=== PATIENT | male | born 1965 | race American Indian/Alaskan Native ===

== ENCOUNTER 2016-09-25 21:30 | Inpatient (IN) | payer MEDICARE ==
[2016-09-25] MEDS ORDERED: APRESOLINE IV ONE (21:44)
[2016-09-25] MEDS ORDERED: AMIDATE IV ONE ×2 (22:00→23:39)
[2016-09-25] MEDS ORDERED: QUELICIN ONE (22:00)
--- NOTE | 2016-09-25 22:17 | Emergency Department Report ---
HPI - General Time Seen by Provider: 09/25/16 21:42 - HPI HPI: This is a 51-year-old Afro-[place] male who presents to the emergency department via EMS from home with complaint of neck swelling 2 days postop from thyroidectomy. The [facility] He went home and try to smoke a cigarette and tried to use cocaine when all of a sudden his neck started swelling and he felt like he is having trouble swallowing and that his throat is closing. Patient has a history of hypertension and end-stage renal disease on Tuesday, Tuesday and Tuesday. The surgery was done by a Dr. Salazar. He denies any chest pain, fever, nausea, vomiting, back pain. He has not taken anything and was not given anything for symptoms prior to presentation. ED Review of Systems ROS: Stated complaint: BETI/POST SURGERY Other details as noted in HPI Comment: All other systems reviewed and negative Constitutional: denies: chills, fever Eyes: denies: eye pain, eye discharge, vision change ENT: throat pain. denies: ear pain Respiratory: shortness of breath. denies: cough Cardiovascular: edema. denies: chest pain, palpitations Gastrointestinal: denies: abdominal pain, nausea, diarrhea Genitourinary: denies: urgency, dysuria Musculoskeletal: denies: back pain, joint swelling, arthralgia Skin: denies: rash, lesions Neurological: denies: headache, weakness, paresthesias Physical Exam - Physical Exam Physical Exam: GENERAL: The patient is well-developed well-nourished. Patient appears to be very uncomfortable but does not appear to be in any acute distress. HEENT: Normocephalic. Atraumatic. Extraocular motions are intact. Patient has moist mucous membranes. Pupils equal reactive to light bilaterally. Patient has a Mallampati of 4. No drooling or trismus. No signs of Glenn angina. NECK: Supple. There is swelling to the anterior neck. There does not appear to be active expansion. No current stridor. There is no signs of bleeding or purulent discharge to the anterior neck incision from his recent parathyroid surgery. CHEST/LUNGS: Clear to auscultation. There is no respiratory distress noted. HEART/CARDIOVASCULAR: Regular. There is no tachycardia. There is no gallop rub or murmur. ABDOMEN: Abdomen is soft, nontender. Patient has normal bowel sounds. There is no abdominal distention. SKIN: There is nonpitting swelling to the anterior neck and soft tissue under the jaw. NEURO: The patient is awake, alert, and oriented. The patient is cooperative. The patient has no focal neurologic deficits. The patient has normal speech. MUSCULOSKELETAL: There is no tenderness or deformity. There is no limitation range of motion. There is no evidence of acute injury. ED Course - Consultations Consultation #1: I spoke with the surgeon who did the patient's surgery, Dr. Salazar, who says that he did a parathyroidectomy and not a thyroidectomy. He does not feel comfortable with the patient being transferred to [facility] since the patient is currently intubated and has concern that the hematoma could largen. I spoke with Dr. Ferrari Gen. surgery here at [facility], who has agreed to come in and see the patient in the emergency department 09/25/16 23:45 - Intubation Time Out Performed: Yes Sedative: Etomidate Mg Given: 20 Paralytic: Succinylcholine Mg Given: 100 Laryngoscope: fiberoptic video scope Size: 4 ET Tube Size: 7.5 Tube Secured Depth (cm): 25 Tube Secured Location: lips Tube Placement Confirmation: visualized tube passing t, equal breath sounds bilat, confirmation by capnometr Patient Tolerated Procedure: well Intubation Complications: none ED Medical Decision Making - Lab Data Result diagrams: 09/26/16 03:30 09/26/16 04:17 - Radiology Data Radiology results: report reviewed, image reviewed interpreted by me: Chest x-ray did not show any acute process. Heart is normal shape and size. No effusions. No pneumothorax. No signs of pneumonia seen. Post intubation chest x-ray shows that the ET tube is an appropriate position. Still no pneumothorax or obvious sign of pneumonia. CT of the neck without contrast shows a large hematoma suspected the lower neck anterior took thyroid gland measuring 5.7 x 10 cm in greatest axial dimensions. There may be hematoma formation and inferior aspects of the sternocleidomastoid muscles. Little airway narrowing is seen in the lower neck. - Medical Decision Making 51-year-old male presents to the emergency department after being discharged from the Medical status post parathyroidectomy. The patient made the decision to go home and try and smoke a cigarette as well as use cocaine. He presents with swelling to the anterior neck. At first the patient does not have any stridor signs of respiratory distress. However during his ED course the patient starts to have increased swelling and started to have some stridor sounds and the decision was made at this point to intubate the patient. Anesthesia was at bedside but we were able to intubate the patient using the glydescope without any complications. CT of the neck shows a moderate size hematoma to the anterior neck. I spoke with the patient's surgeon at [facility] he would not accept transfer. Dr. Ferrari graciously agreed to come in and take care of this patient and took him to the OR and admitted the patient to his service. - Differential Diagnosis Glenn angina, hematoma, thyroid goiter Critical Care Time: Yes Critical care time in (mins) excluding proc time.: 35 Critical care attestation.: If time is entered above; I have spent that time in minutes in the direct care of this critically ill patient, excluding procedure time. Critical care time was spent on this patient during his initial evaluation, multiple re-evaluations , discussion and consultation with anesthesia, discussion with the patient's previous surgeon, discussion with our general surgeon, post intubation vent care , ordering evaluation of labs, ordering evaluation of imaging and disposition planning. This does not include the procedure for intubation. Critical Care Time: 35 mins ED Disposition Clinical Impression: Neck swelling, Cocaine abuse, ESRD on hemodialysis Respiratory failure Qualifiers: Chronicity: acute Respiratory failure complication: unspecified whether with hypoxia or hypercapnia Qualified Code(s): J96.00 - Acute respiratory failure, unspecified whether with hypoxia or hypercapnia Post-operative complication Qualifiers: Surgical complication system/body Area: [id number] Encounter type: initial encounter Postoperative shock type: unspecified shock type Disposition: OP ADMITTED IP TO THIS HOSP Is pt being admited?: Yes Condition: Serious Time of Disposition: 06:23
[2016-09-25 22:41] LABS: Hematocrit 29.4 % (35.5-45.6); Hemoglobin 9.5 gm/dl (11.8-15.2); Mean Corpuscular HGB Conc 32 % (32-34); Mean Corpuscular Hemoglobin 30 pg (28-32); Mean Corpuscular Volume 94 fl (84-94); Platelet Count 170 K/mm3 (140-440); Red Blood Count 3.15 M/mm3 (3.65-5.03); Red Cell Distribution Width 15.3 % (13.2-15.2); White Blood Count 4.7 K/mm3 (4.5-11.0)
[2016-09-25 22:51] LABS: Albumin 3.9 g/dL (3.9-5); Albumin/Globulin Ratio 1.1 %; Alkaline Phosphatase 134 units/L (35-129); Anion Gap 22 mmol/L; BUN/Creatinine Ratio 4.33; Bilirubin,Total 0.4 mg/dL (0.1-1.2); Blood Urea Nitrogen 36 mg/dL (9-20); Calcium 8.9 mg/dL (8.4-10.2); Carbon Dioxide 27 mmol/L (22-30); Chloride 90.4 mmol/L (98-107); Glucose 94 mg/dL (75-100); Potassium 4.9 mmol/L (3.6-5.0); Sodium 134 mmol/L (137-145); Total Protein 7.4 g/dL (6.3-8.2)
[2016-09-25 22:55] LABS: Alanine Aminotransferase < 5 units/L (7-56)
[2016-09-25] MEDS ORDERED: DIPRIVAN 10 MG/ML 1,000 MG/100 ML BOTTLE IV ONE (22:59)
[2016-09-25] MEDS ORDERED: NACL 0.9% 1000 ML 1,000 ML ONE (23:05)
[2016-09-25] MEDS: DIPRIVAN 10 MG/ML 1,000 MG/100 ML BOTTLE IV SCH (23:15)
--- NOTE | 2016-09-25 23:28 | Cat Scan Report ---
FINAL REPORT PROCEDURE: CT NECK WO CON TECHNIQUE: Computerized axial tomography of the soft tissue neck was performed following the IV injection of iodinated nonionic contrast. HISTORY: Post op neck swelling COMPARISON: No prior studies are available for comparison. FINDINGS: Study is limited due the lack of IV contrast. Mild soft tissue emphysema is seen along the right sternocleidomastoid muscle. Sternocleidomastoid muscles appear enlarged in their distal course with possible edema or hematoma. In the soft tissues anterior to the thyroid gland there is a large hematoma suspected measuring 5.7 x 10.2 cm. Mild lymphadenopathy is suspected in the superior mediastinum. Mild airway narrowing is seen in the cervical trachea. More superiorly in the neck at the level of the hyoid bone, there is mild diffuse edema in the parapharyngeal and retropharyngeal soft tissues. There appears to be soft tissue edema within the mucosal soft tissues at the level of the hypopharynx with more moderate airway narrowing. Submandibular and parotid glands appear symmetric. Atherosclerotic calcifications are seen in the carotid bifurcations. There is abnormal densities seen in the sphenoid sinus that communicates with the sella. It is uncertain if this is from a sinus mass or sellar mass or is postoperative change. This area measures approximately 4.0 x 1.9 cm in greatest sagittal dimensions. IMPRESSION: Large hematoma is suspected in the lower neck anterior to the thyroid gland measuring 5.7 x 10.2 in greatest axial dimensions. There may be hematoma formation in the inferior aspects of the sternocleidomastoid muscles, also. Little airway narrowing is seen in the lower neck. There is suggestion of mucosal edema in the hypopharynx appearance surrounding parapharyngeal and retropharyngeal edema. Moderate airway narrowing is seen in the supraglottic region. Abnormal density in the sella and sphenoid sinuses may be postsurgical packing but a sellar mass or sinus mass is not excluded. Critical results were discussed with Dr. Carmona at 11:22 p.m. on September 25, 2016.
[2016-09-25] MEDS ORDERED: QUELICIN IV ONE (23:39)
[2016-09-25] MEDS ORDERED: ARTIFICIAL TEARS OPHTH OINT OU PRN (23:48)
[2016-09-25] MEDS ORDERED: VASELINE LIP THERAPY TP PRN (23:48)
--- NOTE | 2016-09-26 00:13 | Anesthesia Day of Surgery ---
Anesthesia Day of Surgery - Day of Surgery Patient Examined: Yes Patient H&P Reviewed: Yes Patient is NPO: Yes
--- NOTE | 2016-09-26 00:13 | Anesthesia Consultation ---
Anesthesia Consult and Med Hx Date of service: 09/26/16 - Pulmonary Exam CTA: No (coarse breath sounds and wheezing bilaterally) - Cardiac Exam Cardiac Exam: RRR - Pre-Operative Health Status ASA Pre-Surgery Classification: ASA4 Proposed Anesthetic Plan: General - Pulmonary Hx Smoking: Yes Hx Respiratory Symptoms: Yes (intubated in ER) - Cardiovascular System Hx Hypertension: Yes - Endocrine Hx End Stage Renal Disease: Yes (dialysis MWF) - Other Systems Hx Substance Use: Yes (cocaine) - Additional Comments Anesthesia Medical History Comments: Underwent parathyroidectomy 2 days ago at [facility]. Presents in ER with neck distension suspecting hematoma and airway edema on CT scan. Patient intubated in ER.
[2016-09-26 00:14] LABS: Anisocytosis 1+; Basophils % (Manual) 0 % (0.0-1.8); Blastocytes % (Manual) 0 %; Diff Status Complete; Hypochromasia 1+; Platelet Estimate Consistent w Auto
[2016-09-26] MEDS ORDERED: ZEMURON IV ONE (00:15)
[2016-09-26] MEDS ORDERED: VERSED ONE (00:15)
[2016-09-26] MEDS ORDERED: MARCAINE 0.5% 0 ML INFILTRATI ONE (00:40)
[2016-09-26] MEDS ORDERED: ANCEF ONE ×3 (01:24→01:42)
[2016-09-26] MEDS ORDERED: SUBLIMAZE ONE (01:30)
[2016-09-26] MEDS ORDERED: DECADRON ONE (01:42)
--- NOTE | 2016-09-26 01:59 | Post Anesthesia Evaluation ---
- Post Anesthesia Evaluation Patient Participated: No (sedated on vent) Airway Patent: Yes Stable Respiratory Function: No (respiratory failure) Nausea/Vomiting: No Temp > 96.8F: Yes Pain Manageable: Yes Adequeate Hydration: Yes Anesthesia Complications: No Block Receding Appropriately: Not Applicable Patient on Ventilator: Yes
[2016-09-26] MEDS: D5W/0.45% NACL/KCL 20 MEQ 20 MEQ/1,000 ML BAG IV SCH (05:20)
[2016-09-26 05:24] LABS: Hematocrit 28.9 % (35.5-45.6); Hemoglobin 9.2 gm/dl (11.8-15.2); Mean Corpuscular HGB Conc 32 % (32-34); Mean Corpuscular Hemoglobin 30 pg (28-32); Mean Corpuscular Volume 95 fl (84-94); Platelet Count 180 K/mm3 (140-440); Red Blood Count 3.05 M/mm3 (3.65-5.03); Red Cell Distribution Width 15.7 % (13.2-15.2)
[2016-09-26 05:34] LABS: INR 1.09 (0.87-1.13)
[2016-09-26 05:46] LABS: BUN/Creatinine Ratio 4.31; Calcium 8.6 mg/dL (8.4-10.2)
[2016-09-26 05:47] LABS: Chloride 91.2 mmol/L (98-107); Potassium 4.7 mmol/L (3.6-5.0)
[2016-09-26 05:49] LABS: Basophils % (Auto) 0.4 % (0.0-1.8)
[2016-09-26 05:50] LABS: ISTAT Base Excess 1; ISTAT HCO3 26.2; ISTAT PCO2 43.5 (35-45); ISTAT PH 7.388 (7.35-7.45); ISTAT PO2 78 (80-105); ISTAT SO2 95; ISTAT TCO2 28
[2016-09-26] MEDS: DIPRIVAN 10 MG/ML 1,000 MG/100 ML BOTTLE IV SCH ×4 (06:12→18:18)
[2016-09-26 06:37] LABS: Anisocytosis 1+; Blastocytes % (Manual) 0 %; Diff Status Complete; Hypochromasia 1+; Platelet Estimate Consistent w Auto
[2016-09-26] MEDS ORDERED: VASELINE LIP THERAPY TP PRN (06:40)
--- NOTE | 2016-09-26 08:02 | Progress Note ---
Subjective Narrative: seen this AM still entubated some booz of blood via the adi bandage changed , will have Dr boswell for HDialysis .NPO Objective Vital Signs - 12hr 09/26/16 09/26/16 09/26/16 02:14 02:19 02:24 Temperature 97.1 F L Pulse Rate 74 75 78 Respiratory 16 16 22 Rate Blood Pressure 92/51 101/54 118/66 O2 Sat by Pulse 100 100 100 Oximetry 09/26/16 09/26/16 09/26/16 02:29 02:34 02:45 Temperature 98.0 F Pulse Rate 79 80 80 Respiratory 23 24 24 Rate Blood Pressure 130/71 147/80 148/80 O2 Sat by Pulse 100 100 100 Oximetry 09/26/16 09/26/16 09/26/16 02:55 03:01 03:11 Temperature Pulse Rate 84 Respiratory 16 Rate Blood Pressure 176/96 O2 Sat by Pulse 100 96 96 Oximetry 09/26/16 09/26/16 09/26/16 03:15 03:21 03:31 Temperature 97.8 F Pulse Rate 82 79 Respiratory 18 21 19 Rate Blood Pressure 160/93 160/93 O2 Sat by Pulse 98 96 95 Oximetry 09/26/16 09/26/16 09/26/16 03:41 03:51 03:52 Temperature 97.9 F Pulse Rate 78 77 Respiratory 18 17 Rate Blood Pressure 160/93 160/93 O2 Sat by Pulse 93 92 Oximetry 09/26/16 09/26/16 09/26/16 04:00 04:11 04:21 Temperature Pulse Rate 77 76 76 Respiratory 18 18 17 Rate Blood Pressure 107/64 107/64 107/64 O2 Sat by Pulse 92 93 93 Oximetry 09/26/16 09/26/16 09/26/16 04:31 04:41 04:51 Temperature Pulse Rate 76 75 74 Respiratory 17 17 19 Rate Blood Pressure 160/93 160/93 160/93 O2 Sat by Pulse 93 94 94 Oximetry 09/26/16 09/26/16 09/26/16 05:01 05:10 05:21 Temperature Pulse Rate 75 75 72 Respiratory 11 L 22 21 Rate Blood Pressure 126/74 126/74 126/74 O2 Sat by Pulse 95 96 100 Oximetry 09/26/16 09/26/16 09/26/16 05:24 05:31 05:41 Temperature Pulse Rate 73 72 71 Respiratory 19 18 Rate Blood Pressure 126/74 126/74 126/74 O2 Sat by Pulse 93 98 98 Oximetry - Labs 09/26/16 03:30 09/26/16 04:17 Diabetes panel 09/26/16 Range/Units 04:17 Sodium 134 L (137-145) mmol/L Potassium 4.7 (3.6-5.0) mmol/L Chloride 91.2 L (98-107) mmol/L Carbon Dioxide 24 (22-30) mmol/L BUN 38 H (9-20) mg/dL Creatinine 8.8 H (0.8-1.5) mg/dL Glucose 84 (75-100) mg/dL Calcium 8.6 (8.4-10.2) mg/dL Calcium panel 09/26/16 Range/Units 04:17 Calcium 8.6 (8.4-10.2) mg/dL Pituitary panel 09/26/16 Range/Units 04:17 Sodium 134 L (137-145) mmol/L Potassium 4.7 (3.6-5.0) mmol/L Chloride 91.2 L (98-107) mmol/L Carbon Dioxide 24 (22-30) mmol/L BUN 38 H (9-20) mg/dL Creatinine 8.8 H (0.8-1.5) mg/dL Glucose 84 (75-100) mg/dL Calcium 8.6 (8.4-10.2) mg/dL Adrenal panel 09/26/16 Range/Units 04:17 Sodium 134 L (137-145) mmol/L Potassium 4.7 (3.6-5.0) mmol/L Chloride 91.2 L (98-107) mmol/L Carbon Dioxide 24 (22-30) mmol/L BUN 38 H (9-20) mg/dL Creatinine 8.8 H (0.8-1.5) mg/dL Glucose 84 (75-100) mg/dL Calcium 8.6 (8.4-10.2) mg/dL
[2016-09-26] MEDS: fentaNYL DRIP Premix 2,000 MCG/100 ML BAG IV SCH ×2 (08:14→14:28)
[2016-09-26 09:19] LABS: Hematocrit 25.7 % (35.5-45.6); Hemoglobin 8.3 gm/dl (11.8-15.2); Mean Corpuscular HGB Conc 32 % (32-34); Mean Corpuscular Hemoglobin 31 pg (28-32); Mean Corpuscular Volume 95 fl (84-94); Platelet Count 155 K/mm3 (140-440); Red Blood Count 2.72 M/mm3 (3.65-5.03); Red Cell Distribution Width 15.3 % (13.2-15.2); White Blood Count 4.3 K/mm3 (4.5-11.0)
--- NOTE | 2016-09-26 10:52 | XRay Report ---
Single view chest: History: Shortness of breath. Findings: Cardiomegaly. Trachea is midline. Infiltrates right upper lobe. Suspicion of infiltrates left perihilar area. Left CP angle obscured by the large heart. Right CP angle normal. Impression: Right upper lobe pneumonia. Suspicion of infiltrates left perihilar area.
--- NOTE | 2016-09-26 10:53 | XRay Report ---
Single view chest: Compared to 09/25/16 obtained at 9:48 PM. History: Postintubation. Findings: Cardiomegaly. Trachea is midline. Tip of endotracheal tube in normal position. Infiltrates right upper lobe and left perihilar area. Normal CP angles. Impression: Faint infiltrates right upper lobe and left perihilar area.
--- NOTE | 2016-09-26 11:05 | Consultation ---
History of Present Illness Consult date: 09/26/16 Medications and Allergies Allergies Allergy/AdvReac Type Severity Reaction Status Date / Time Unable to Assess Allergy Unverified 09/25/16 23:38 Active Meds: Active Medications Famotidine (Pepcid) 20 mg IV BID HALEY Hydrophilic Ointment (Vaseline Lip Therapy) 1 applic TP Q2HR PRN PRN Reason: Dry Lips Propofol (Diprivan 10 Mg/Ml) 1,000 mg in 100 mls @ 2.994 mls/hr IV TITR HALEY; 5 MCG/KG/MIN PRN Reason: Protocol Last Admin: 09/26/16 10:24 Dose: 40 mcg/kg/min, 23.95 mls/hr Potassium Chloride/Dextrose/Sod Cl (D5w/0.45% Nacl/Kcl 20 Meq) 20 meq in 1,000 mls @ 50 mls/hr IV DIRECT HALEY Last Admin: 09/26/16 05:20 Dose: 50 mls/hr Fentanyl Citrate (Fentanyl Drip Premix) 2,000 mcg in 100 mls @ 4.99 mls/hr IV TITR HALEY; 1 MCG/KG/HR PRN Reason: Protocol Last Admin: 09/26/16 08:14 Dose: 2 mcg/kg/hr, 9.979 mls/hr Multi-Ingred Cream/Lotion/Oil/Oint (Artificial Tears Ophth Oint) 1 applic OU Q4HR PRN PRN Reason: Dry Eye(s) Physical Examination Vital Signs Pulse Resp BP Pulse Ox 91 H 18 206/97 100 09/25/16 22:31 09/25/16 22:31 09/25/16 22:31 09/25/16 22:31 Results 09/26/16 08:37 09/26/16 04:17 Coagulation 09/26/16 Range/Units 03:30 PT 14.0 (12.2-14.9) Sec. INR 1.09 (0.87-1.13) CBC 09/26/16 09/26/16 Range/Units 03:30 08:37 WBC 7.0 4.3 L (4.5-11.0) K/mm3 RBC 3.05 L 2.72 L (3.65-5.03) M/mm3 Hgb 9.2 L 8.3 L (11.8-15.2) gm/dl Hct 28.9 L 25.7 L (35.5-45.6) % Plt Count 180 155 (140-440) K/mm3 Lymph # 0.2 L (1.2-5.4) K/mm3 Camas # 0.2 (0.0-0.8) K/mm3 Eos # 0.5 H (0.0-0.4) K/mm3 Baso # 0.0 (0.0-0.1) K/mm3 Comprehensive Metabolic Panel 09/26/16 Range/Units 04:17 Sodium 134 L (137-145) mmol/L Potassium 4.7 (3.6-5.0) mmol/L Chloride 91.2 L (98-107) mmol/L Carbon Dioxide 24 (22-30) mmol/L BUN 38 H (9-20) mg/dL Creatinine 8.8 H (0.8-1.5) mg/dL Glucose 84 (75-100) mg/dL Calcium 8.6 (8.4-10.2) mg/dL Assessment and Plan Detailed cardiology consult dictated.
--- NOTE | 2016-09-26 11:46 | Consultation ---
History of Present Illness - Reason for Consult Consult date: 09/26/16 end stage renal disease - History of Present Illness History obtained from records as patient is intubated/sedated. Mr. Riggins is a 51yo gentleman with ESRD on HD MWF and secondary hyperparathyroidism who is s/p recent parathyroidectomy at [facility] (Dr. Salazar) on 09/24 who presented to the ED with neck swelling and difficulty swallowing. CT neck w/o contrast was notable for large hematoma. Patient was intubated for airway protection. He was taken to the OR for evacuation of hematoma Past History Past Medical History: anemia (secondary to ESRD), ESRD, hypertension, other ( secondary hyperparathyroidism) Past Surgical History: Other (parathyroidectomy, AVF creation) Social history: smoking Family history: no significant family history Medications and Allergies Allergies Allergy/AdvReac Type Severity Reaction Status Date / Time Unable to Assess Allergy Unverified 09/25/16 23:38 Active Meds: Active Medications Famotidine (Pepcid) 20 mg IV BID HALEY Hydrophilic Ointment (Vaseline Lip Therapy) 1 applic TP Q2HR PRN PRN Reason: Dry Lips Propofol (Diprivan 10 Mg/Ml) 1,000 mg in 100 mls @ 2.994 mls/hr IV TITR HALEY; 5 MCG/KG/MIN PRN Reason: Protocol Last Admin: 09/26/16 10:24 Dose: 40 mcg/kg/min, 23.95 mls/hr Potassium Chloride/Dextrose/Sod Cl (D5w/0.45% Nacl/Kcl 20 Meq) 20 meq in 1,000 mls @ 50 mls/hr IV DIRECT HALEY Last Admin: 09/26/16 05:20 Dose: 50 mls/hr Fentanyl Citrate (Fentanyl Drip Premix) 2,000 mcg in 100 mls @ 4.99 mls/hr IV TITR HALEY; 1 MCG/KG/HR PRN Reason: Protocol Last Admin: 09/26/16 08:14 Dose: 2 mcg/kg/hr, 9.979 mls/hr Multi-Ingred Cream/Lotion/Oil/Oint (Artificial Tears Ophth Oint) 1 applic OU Q4HR PRN PRN Reason: Dry Eye(s) Review of Systems ROS unobtainable: due to endotracheal tube Exam - Vital Signs Vital signs: Vital Signs Pulse Resp BP Pulse Ox 91 H 18 206/97 100 04/01/17 22:31 09/25/16 22:31 09/25/16 22:31 09/25/16 22:31 - General Appearance General appearance: sedated on ventilator, intubated EENT: ATNC Neck: Present: Other (pressure dressing applied to anterior neck) Respiratory: Other (coarse anterior breath sounds) Heart: regular, S1S2 Gastrointestinal: Present: normal. Absent: distended Integumentary: no rash Neurologic: other (sedated) Results - Lab Results 09/26/16 08:37 09/26/16 04:17 Most recent lab results Calcium 8.6 mg/dL (8.4-10.2) 09/26/16 04:17 Assessment and Plan Impression: * End stage renal disease on HD MWF * Hematoma s/p parathyroidectomy * Acute respiratory failure secondary to hematoma * Hypertension Plan: * No acute need for hemodialysis today * Surgery following - he is s/p hematoma evacuation * Ca level stable - will follow * Continue anti HTN medications * Transfusion of pRBC prn * Epogen protocol
--- NOTE | 2016-09-26 14:27 | Consultation ---
History of Present Illness Consult date: 09/26/16 Requesting physician: AUGUSTIN GUILLERMO Reason for consult: other (post-operative respiratory failure.) History of present illness: 51 y/o male with evacuation of neck hemotoma admitted to ICU with continued bleeding and respiratory failure. Intubated for airway protection and surgery. had hematoma evacuated last night. Past History Past Medical History: anemia (secondary to ESRD), ESRD, hypertension, other ( secondary hyperparathyroidism) Past Surgical History: Other (parathyroidectomy, AVF creation) Social history: smoking Family history: no significant family history Medications and Allergies Allergies Allergy/AdvReac Type Severity Reaction Status Date / Time Unable to Assess Allergy Unverified 09/25/16 23:38 Active Meds: Active Medications Famotidine (Pepcid) 20 mg IV BID HALEY Hydrophilic Ointment (Vaseline Lip Therapy) 1 applic TP Q2HR PRN PRN Reason: Dry Lips Propofol (Diprivan 10 Mg/Ml) 1,000 mg in 100 mls @ 2.994 mls/hr IV TITR HALEY; 5 MCG/KG/MIN PRN Reason: Protocol Last Admin: 09/26/16 14:16 Dose: 40 mcg/kg/min, 23.95 mls/hr Potassium Chloride/Dextrose/Sod Cl (D5w/0.45% Nacl/Kcl 20 Meq) 20 meq in 1,000 mls @ 50 mls/hr IV DIRECT HALEY Last Admin: 09/26/16 05:20 Dose: 50 mls/hr Fentanyl Citrate (Fentanyl Drip Premix) 2,000 mcg in 100 mls @ 4.99 mls/hr IV TITR HALEY; 1 MCG/KG/HR PRN Reason: Protocol Last Admin: 09/26/16 08:14 Dose: 2 mcg/kg/hr, 9.979 mls/hr Multi-Ingred Cream/Lotion/Oil/Oint (Artificial Tears Ophth Oint) 1 applic OU Q4HR PRN PRN Reason: Dry Eye(s) Review of Systems ROS unobtainable: due to endotracheal tube, due to mental status Physical Examination Vital signs: Vital Signs Pulse Resp BP Pulse Ox 91 H 18 206/97 100 09/25/16 22:31 09/25/16 22:31 09/25/16 22:31 09/25/16 22:31 General appearance: no acute distress, comatose (sedated on propofol and fent) Eyes: non-icteric ENT: other Neck: other (pressure dressing in place) Ascultation: Bilateral: diminished breath sounds Percussion: Bilateral: not dull Cardiovascular: regular rate and rhythm Gastrointestinal: normoactive bowel sounds Integumentary: normal Extremities: no cyanosis, no edema, pink and warm Musculoskeletal: no deformities unable to assess Results - Laboratory Findings CBC and BMP: 09/26/16 08:37 09/26/16 04:17 ABG POC ABG pH 7.388 (7.35-7.45) 09/26/16 05:16 POC ABG pCO2 43.5 (35-45) 09/26/16 05:16 POC ABG pO2 78 (80-105) L 09/26/16 05:16 POC ABG HCO3 26.2 09/26/16 05:16 POC ABG Total CO2 28 09/26/16 05:16 POC ABG O2 Sat 95 09/26/16 05:16 PT/INR, D-dimer PT 14.0 Sec. (12.2-14.9) 09/26/16 03:30 INR 1.09 (0.87-1.13) 09/26/16 03:30 Abnormal lab findings: Abnormal Labs 09/26/16 09/26/16 09/26/16 03:30 04: 05:16 WBC RBC 3.05 L Hgb 9.2 L Hct 28.9 L MCV 95 H RDW 15.7 H Lymph % (Auto) 2.5 L Lymph # 0.2 L Eos # 0.5 H Seg Neutrophils % 86.9 H Lymphocytes % (Manual) 6.0 L Monocytes % (Manual) 8.0 H Eosinophils % (Manual) 19.0 H Basophils % (Manual) 2.0 H Lymphocytes # (Manual) 0.4 L Eosinophils # (Manual) 1.3 H POC ABG pO2 78 L Sodium 134 L Chloride 91.2 L BUN 38 H Creatinine 8.8 H POC Glucose 09/26/16 09/26/16 08:37 10:51 WBC 4.3 L RBC 2.72 L Hgb 8.3 L Hct 25.7 L MCV 95 H RDW 15.3 H Lymph % (Auto) Lymph # Eos # Seg Neutrophils % Lymphocytes % (Manual) Monocytes % (Manual) Eosinophils % (Manual) Basophils % (Manual) Lymphocytes # (Manual) Eosinophils # (Manual) POC ABG pO2 Sodium Chloride BUN Creatinine POC Glucose 132 H - Diagnostic Findings Chest x-ray: image reviewed (cardiomegaly with mild pulmonary vascular congestion) Assessment and Plan 51 y/o male admitted with neck hematoma after parathyroid surgery at outside hospital, requiring mechanical ventilation for airway protection and adequate sedation. 1. Patient with FiO2 at 60, sat only 94%. CXR appears to be consistent with volume overload. Also has ESRD, will dialyze Tuesday based on renal recs 2. Continue current level of sedation to keep neck still to help with clotting 3. Follow up surgery recs 4. Will continue to follow CCT 31 minutes
[2016-09-26 21:58] LABS: Hematocrit 24.5 % (35.5-45.6); Hemoglobin 7.9 gm/dl (11.8-15.2)
[2016-09-26] MEDS ORDERED: PEPCID IV SCH (22:00)
--- NOTE | 2016-09-27 00:05 | Consultation ---
CARDIOLOGY CONSULTATION REFERRING PHYSICIAN: Yusef Ferrari MD Dear Dr. Ferrari: Thanks for this consult. The patient is intubated and is on sedation. Most of the history is obtained from Dr. Ferrari and medical records. HISTORY OF PRESENT ILLNESS: A 51-year-old obese (BMI of 31.6) a pleasant -[place] gentleman with a history of hypertension, CKD, on chronic hemodialysis, hyperparathyroidism, underwent parathyroidectomy at [facility] a few days ago. Two days after the surgery, he started having swelling of the neck, which gradually started increasing and he had difficulty in swallowing and breathing. Workup revealed evidence of hematoma in the neck. He was intubated and placed on assisted mechanical ventilation. His hemoglobin initially was 9.2 and then went down to 8.3, hematocrit went down from 28.9 to 25.7. His potassium is normal. No history of diabetes mellitus. His lipid status is unknown. At this time, he is intubated on 50% FIO2 and PEEP of 5. His blood pressure is stable. Apparently 2 days after the surgery, the patient was trying to smoke a cigarette and also, he was trying to use cocaine. PAST MEDICAL HISTORY: History of multiple medical problems as described above. Apparently, the patient had trouble swallowing. No history of chest pain, nausea, or vomiting. No further past history is known at this time. SOCIAL HISTORY: Not known. FAMILY HISTORY: Not known. ALLERGIES: Unable to assess at this time. MEDICATIONS: Pepcid 20 mg IV b.i.d., fentanyl infusion, propofol infusion, IV D5 half normal saline with potassium (20 mEq in 1 Liter) infusion. REVIEW OF SYSTEMS: CARDIOVASCULAR: As described in the history. PULMONARY: As described in the history. THYROID: As described in the history. METABOLISM AND ENDOCRINOLOGY: History of parathyroidectomy. HEMATOPOIETIC SYSTEM: Acute blood loss anemia. RENAL: History of CKD, on chronic hemodialysis. PHYSICAL EXAMINATION: GENERAL: A 51-year-old obese (BMI of 31.6) -[place] gentleman, intubated on assisted mechanical ventilation (FiO2 of 50, PEEP of 5), not responding to painful stimuli medication, he is on propofol and fentanyl infusion. VITAL SIGNS: His pulse is 70 per minute and regular, blood pressure 111/69 mmHg, respirations 18 per minute. NEUROLOGIC: As described above. HEENT: Marked neck swelling plus plus dressing in situ. HEART: Point of maximum pulse could not be felt satisfactorily, no palpable thrills. Auscultation of the heart reveals S1, S2. He had regular no murmur or rub is appreciated. EXTREMITIES: Peripheral pulses felt. No edema. LUNGS: Bilateral [id number] wheezing, cannot be examined well posteriorly. No bronchial breathing. Few scattered rhonchi. ABDOMEN: Soft, mild distention present. Bowel sounds sluggish. EXTREMITIES: Negative. ADDENDUM: The patient was taken to the operating room on an emergent basis by Dr. Ferrari and he had evacuation of the hematoma and measures were taken to prevent further bleeding. LABORATORY DATA: Potassium 4.7, BUN and creatinine 38 and 8.8. WBC, platelet count within normal limits. Hemoglobin and hematocrit and 8.3 and 25.7 respectively, platelets count normal,. Alkaline phosphate is mildly increased to 134. T4 increased to 2.36. TSH is normal. INR is normal. EKG normal sinus rhythm, first-degree AV block. Chest x-ray report pending at this time. ASSESSMENT AND PLAN: 1. History of parathyroidectomy. 2. History of hypertension and chronic kidney disease, on chronic hemodialysis. 3. Mild obesity. 4. Hematoma in the neck causing difficulty in swallowing. 5. Acute blood loss anemia. 6. Respiratory failure. RECOMMENDATIONS: 1. Follow-up hemoglobin and hematocrit closely. 2. Follow up with the brake reliner. 4. We will try to obtain old medical records. 5. We will order bedside echocardiogram to chamber dimensions and ventricular function. Further recommendations will follow. JOB# [id number] [facility]
[2016-09-27] MEDS: D5W/0.45% NACL/KCL 20 MEQ 20 MEQ/1,000 ML BAG IV SCH (01:20)
[2016-09-27] MEDS: DIPRIVAN 10 MG/ML 1,000 MG/100 ML BOTTLE IV SCH (04:30)
[2016-09-27 04:45] LABS: ISTAT Base Excess -2; ISTAT HCO3 24.8; ISTAT PCO2 53.8 (35-45); ISTAT PH 7.272 (7.35-7.45); ISTAT PO2 112 (80-105); ISTAT SO2 98; ISTAT TCO2 26
[2016-09-27 07:30] LABS: Basophils % (Auto) 0.8 % (0.0-1.8); Hematocrit 24.1 % (35.5-45.6); Hemoglobin 7.7 gm/dl (11.8-15.2); Mean Corpuscular HGB Conc 32 % (32-34); Mean Corpuscular Hemoglobin 30 pg (28-32); Mean Corpuscular Volume 94 fl (84-94); Platelet Count 183 K/mm3 (140-440); Red Blood Count 2.55 M/mm3 (3.65-5.03); Red Cell Distribution Width 14.8 % (13.2-15.2); White Blood Count 4.7 K/mm3 (4.5-11.0)
[2016-09-27 08:01] LABS: Albumin 3.4 g/dL (3.9-5); Albumin/Globulin Ratio 1.1 %; Alkaline Phosphatase 120 units/L (35-129); Anion Gap 25 mmol/L; Bilirubin,Total 0.2 mg/dL (0.1-1.2); Carbon Dioxide 22 mmol/L (22-30); Chloride 91.8 mmol/L (98-107); Glucose 93 mg/dL (75-100); Sodium 132 mmol/L (137-145); Total Protein 6.5 g/dL (6.3-8.2)
--- NOTE | 2016-09-27 08:05 | Operative Report ---
PREOPERATIVE DIAGNOSIS: Huge hematoma in the neck area status post parathyroidectomy. POSTOPERATIVE DIAGNOSIS: Huge hematoma in the neck area status post parathyroidectomy. SURGERY PERFORMED: Evacuation of large hematoma amounting to about 400 mL of blood located in the subcutaneous area and deep to the strap muscles. We are able to open the wound that is transversely set in the lower neck and the hematoma was evacuated, irrigated. This man came to the ER this evening, complained of severe pain to the neck and he could not breathe according to our ER physician. He had slider requiring intubation by Dr. Damaso Trevino. I was called to evaluate him. The patient had a CAT scan that showed evidence of a large amount of hematoma or blood in the subcutaneous tissue in the neck area. His vital signs were okay when he came. His hemoglobin was 9, platelets were 170,000. He was immediately taken to the operating room where he underwent opening of the wound. PROCEDURE: With the patient in supine position, after he was prepped and draped in the usual fashion, the incision was opened and once I was in the subcutaneous tissue large amounts of dark hematoma was evacuated. I did a digital evacuation of this area and this was deep to the strap muscles, more on the left side. The area was then irrigated with sterile normal saline. There is a bleeder towards the superior thyroid aspect on the left side. This was sutured with the use of 3-0 Vicryl. We were well satisfied, we had good hemostasis. There ____ from the strap muscles, more on the left side, this was handled with application of Matilda powder. This was taken care for and then the wound was closed in 1 layer. I used 3 stitches earlier of 2-0 nylon, in between I was able to put or insert Telfa adi for drainage in case, then a bandage was applied. The patient was then transferred to the recovery room in good condition. We kept him intubated. We called Dr. Bush turkey roll maker to take care of the intubation and to being on respirator. He is on the Diprivan drip. He is on hemodialysis. He is a renal failure patient. Going to call Dr. Medrano in the morning to see him for that purpose. JOB# [id number] [facility]
--- NOTE | 2016-09-27 08:45 | XRay Report ---
Single view chest: Compared to 09/25/16. History: Followup of respiratory failure. Findings: Marked cardiomegaly. Trachea is midline. Tip of endotracheal tube in normal position. No definite infiltrates seen in the right upper lobe in present study however persistence of infiltrate in the left perihilar area. No new infiltrates are noted. Impression: Findings as detailed above.
[2016-09-27 09:01] LABS: BUN/Creatinine Ratio 4.81; Blood Urea Nitrogen 52 mg/dL (9-20)
[2016-09-27] MEDS ORDERED: NACL 0.9% 100 ML IV PRN (09:04)
[2016-09-27] MEDS: PEPCID IV SCH (09:05)
[2016-09-27] MEDS: ARTIFICIAL TEARS OPHTH OINT OU PRN (09:05)
--- NOTE | 2016-09-27 09:06 | Progress Note ---
Assessment and Plan Impression: * End stage renal disease on HD MWF * Hematoma s/p parathyroidectomy * Acute respiratory failure secondary to hematoma * Relative hypotension; hx of hypertension * Hyperkalemia Plan: * Hemodialysis today; continue MWF schedule. UF as tolerated. No heparin * Surgery following - he is s/p hematoma evacuation * Ca level stable s/p parathyroidectomy - will follow * Continue anti HTN medications * Stop KCl containing IVF. Start D5 NS 50ml/hour as pateint is NPO and TPN not ordered * Transfusion of pRBC prn * Epogen protocol * Nutrition per primary team Subjective Date of service: 09/27/16 Interval history: Patient is intubated. Sedation weaned Objective - Vital Signs Vital signs: Vital Signs - 12hr 09/26/16 09/26/16 09/26/16 21:15 21:30 21:45 Temperature Pulse Rate 65 66 68 Pulse Rate [ From Monitor] Respiratory 14 16 12 Rate Blood Pressure 104/58 107/64 105/60 O2 Sat by Pulse 100 99 99 Oximetry 09/26/16 09/26/16 09/26/16 22:00 22:15 22:30 Temperature Pulse Rate 67 64 65 Pulse Rate [ From Monitor] Respiratory 17 17 17 Rate Blood Pressure 104/62 107/61 108/60 O2 Sat by Pulse 99 99 99 Oximetry 09/26/16 09/26/16 09/26/16 22:45 23:00 23:15 Temperature Pulse Rate 68 65 67 Pulse Rate [ From Monitor] Respiratory 14 17 16 Rate Blood Pressure 108/69 106/61 102/60 O2 Sat by Pulse 99 100 97 Oximetry 09/26/16 09/26/16 09/26/16 23:30 23:37 23:45 Temperature Pulse Rate 64 67 67 Pulse Rate [ From Monitor] Respiratory 16 17 Rate Blood Pressure 98/53 103/61 98/55 O2 Sat by Pulse 98 97 100 Oximetry 09/27/16 09/27/16 09/27/16 00:00 00:15 00:30 Temperature 97.7 F Pulse Rate 66 67 64 Pulse Rate [ 66 From Monitor] Respiratory 16 16 16 Rate Blood Pressure 98/55 96/53 95/53 O2 Sat by Pulse 95 98 98 Oximetry 09/27/16 09/27/16 09/27/16 00:45 01:00 01:15 Temperature Pulse Rate 68 63 69 Pulse Rate [ From Monitor] Respiratory 17 16 13 Rate Blood Pressure 108/60 94/52 98/56 O2 Sat by Pulse 99 99 99 Oximetry 09/27/16 09/27/16 09/27/16 01:30 01:45 02:00 Temperature Pulse Rate 65 66 66 Pulse Rate [ From Monitor] Respiratory 16 14 15 Rate Blood Pressure 101/56 98/54 111/68 O2 Sat by Pulse 99 99 99 Oximetry 09/27/16 09/27/16 09/27/16 02:15 02:30 02:45 Temperature Pulse Rate 64 68 70 Pulse Rate [ From Monitor] Respiratory 16 18 15 Rate Blood Pressure 109/66 129/76 136/81 O2 Sat by Pulse 99 100 99 Oximetry 09/27/16 09/27/16 09/27/16 03:00 03:15 03:30 Temperature Pulse Rate 75 74 74 Pulse Rate [ From Monitor] Respiratory 18 17 16 Rate Blood Pressure 146/84 131/79 136/86 O2 Sat by Pulse 97 98 99 Oximetry 09/27/16 09/27/16 09/27/16 03:45 03:59 04:00 Temperature Pulse Rate 73 69 74 Pulse Rate [ 72 From Monitor] Respiratory 16 17 Rate Blood Pressure 129/76 119/71 O2 Sat by Pulse 98 100 99 Oximetry 09/27/16 09/27/16 09/27/16 04:15 04:31 04:45 Temperature Pulse Rate 67 64 63 Pulse Rate [ From Monitor] Respiratory 18 18 18 Rate Blood Pressure 119/71 90/49 90/49 O2 Sat by Pulse 99 99 98 Oximetry 09/27/16 09/27/16 09/27/16 05:00 05:15 05:30 Temperature Pulse Rate 60 60 58 L Pulse Rate [ From Monitor] Respiratory 18 18 18 Rate Blood Pressure 84/45 84/45 93/52 O2 Sat by Pulse 98 99 98 Oximetry 09/27/16 09/27/16 09/27/16 05:45 06:00 06:15 Temperature Pulse Rate 57 L 58 L 60 Pulse Rate [ From Monitor] Respiratory 18 18 18 Rate Blood Pressure 93/52 98/54 98/54 O2 Sat by Pulse 99 98 99 Oximetry 09/27/16 09/27/16 09/27/16 06:30 06:45 07:00 Temperature Pulse Rate 61 59 L 61 Pulse Rate [ From Monitor] Respiratory 18 18 18 Rate Blood Pressure 102/60 102/60 107/60 O2 Sat by Pulse 99 99 99 Oximetry 09/27/16 09/27/16 09/27/16 07:15 07:23 07:30 Temperature Pulse Rate 61 61 61 Pulse Rate [ From Monitor] Respiratory 18 18 Rate Blood Pressure 107/60 107/60 102/57 O2 Sat by Pulse 99 99 99 Oximetry 09/27/16 09/27/16 07:45 08:00 Temperature 97.6 F Pulse Rate 61 62 Pulse Rate [ From Monitor] Respiratory 18 18 Rate Blood Pressure 102/57 108/62 O2 Sat by Pulse 99 98 Oximetry - General Appearance General appearance: sedated on ventilator, intubated EENT: ATNC Respiratory: Present: Clear to Ascultation Cardiology: regular, S1S2 Gastrointestinal: normal, no tenderness, no distended Integumentary: no rash Musculoskeletal: other (no edema) - Lab 09/27/16 06:00 09/27/16 06:00 Most recent lab results Calcium 8.6 mg/dL (8.4-10.2) 09/26/16 04:17
--- NOTE | 2016-09-27 09:08 | Progress Note ---
Assessment and Plan Assessment: Neck hematoma, s/p parathyroidectomy Acute respiratory failure - intubated. Acute blood loss anemia - H/H 7.7/24.1 this AM. ESRD, on HD - on MWF schedule. HTN Obesity Tobacco use / cocaine use Plan: Await echo. Obtain 12-lead EKG. Cont current medical and supportive management. The patient has been seen in conjunction with Dr. Garrett who agrees with the assessment and plan of care. Subjective Date of service: 09/27/16 Principal diagnosis: neck hematoma, s/p parathyroidectomy Interval history: Pt resting comfortably in bed, intubated, alert and following commands appropriately. VSS - in SR on tele, appears to be in 1st degree AV block, HR in 60s, BPs stable. Awaiting echo. Objective Last Vital Signs Temp 97.6 F 09/27/16 08:00 Pulse 62 09/27/16 08:00 Resp 18 09/27/16 08:00 BP 108/62 09/27/16 08:00 Pulse Ox 98 09/27/16 08:00 - Physical Examination General: No Apparent Distress HEENT: Positive: PERRL, EOMI, Normocephaly, Mucus Membranes Moist Neck: Positive: Other (pressure dressing applied to anterior neck; anterior neck swelling noted) Cardiac: Positive: Reg Rate and Rhythm, S1/S2 Lungs: Positive: Rhonchi (anterior), Oxygen, Ventilated Respirations Neuro: Positive: Grossly Intact, Cranial Nerve 2-12 Intact Abdomen: Positive: Unremarkable, Soft, Active Bowel Sounds Skin: Positive: Clear, Other (anterior neck swelling ). Negative: Rash Musculoskeletal: No Pain Extremities: Present: upper extr. pulses, lower extr. pulses. Absent: edema - Labs and Meds Cardiac Enzymes 09/27/16 Range/Units 06:00 AST 15 (5-40) units/L CBC 09/26/16 09/26/16 09/27/16 Range/Units 08:37 21:26 06:00 WBC 4.3 L 4.7 (4.5-11.0) K/mm3 RBC 2.72 L 2.55 L (3.65-5.03) M/mm3 Hgb 8.3 L 7.9 L 7.7 L (11.8-15.2) gm/dl Hct 25.7 L 24.5 L 24.1 L (35.5-45.6) % Plt Count 155 183 (140-440) K/mm3 Lymph # 0.4 L (1.2-5.4) K/mm3 Citrus # 0.6 (0.0-0.8) K/mm3 Eos # 0.2 (0.0-0.4) K/mm3 Baso # 0.0 (0.0-0.1) K/mm3 Comprehensive Metabolic Panel 09/27/16 Range/Units 06:00 Sodium 132 L (137-145) mmol/L Chloride 91.8 L (98-107) mmol/L Carbon Dioxide 22 (22-30) mmol/L BUN 52 H (9-20) mg/dL Creatinine 10.8 H (0.8-1.5) mg/dL Glucose 93 (75-100) mg/dL AST 15 (5-40) units/L Alkaline Phosphatase 120 (35-129) units/L Total Protein 6.5 (6.3-8.2) g/dL Albumin 3.4 L (3.9-5) g/dL - Imaging and Cardiology EKG: pending Echo: pending - Telemetry EKG Rhythm: 1st Degree HB
[2016-09-27 09:13] LABS: Alanine Aminotransferase < 5 units/L (7-56); Calcium 6.7 mg/dL (8.4-10.2); Potassium 6.6 mmol/L (3.6-5.0)
[2016-09-27] MEDS: D5NS 1,000 ML IV SCH (15:57)
--- NOTE | 2016-09-27 16:42 | Progress Note ---
Subjective Narrative: still entubated , Bp high trying to extubate K 6 6 , will keep IV , may need -Adrián . dressing dry , will keep , Objective Vital Signs - 12hr 09/27/16 09/27/16 09/27/16 04:45 05:00 05:15 Temperature Pulse Rate 63 60 60 Pulse Rate [ From Monitor] Respiratory 18 18 18 Rate Blood Pressure 90/49 84/45 84/45 O2 Sat by Pulse 98 98 99 Oximetry O2 Sat by Pulse Oximetry [ Bilateral Throughout] 09/27/16 09/27/16 09/27/16 05:30 05:45 06:00 Temperature Pulse Rate 58 L 57 L 58 L Pulse Rate [ From Monitor] Respiratory 18 18 18 Rate Blood Pressure 93/52 93/52 98/54 O2 Sat by Pulse 98 99 98 Oximetry O2 Sat by Pulse Oximetry [ Bilateral Throughout] 09/27/16 09/27/16 09/27/16 06:15 06:30 06:45 Temperature Pulse Rate 60 61 59 L Pulse Rate [ From Monitor] Respiratory 18 18 18 Rate Blood Pressure 98/54 102/60 102/60 O2 Sat by Pulse 99 99 99 Oximetry O2 Sat by Pulse Oximetry [ Bilateral Throughout] 09/27/16 09/27/16 09/27/16 07:00 07:15 07:23 Temperature Pulse Rate 61 61 61 Pulse Rate [ From Monitor] Respiratory 18 18 Rate Blood Pressure 107/60 107/60 107/60 O2 Sat by Pulse 99 99 99 Oximetry O2 Sat by Pulse Oximetry [ Bilateral Throughout] 09/27/16 09/27/16 09/27/16 07:30 07:45 08:00 Temperature 97.6 F Pulse Rate 61 61 62 Pulse Rate [ 60 From Monitor] Respiratory 18 18 18 Rate Blood Pressure 102/57 102/57 108/62 O2 Sat by Pulse 99 99 98 Oximetry O2 Sat by Pulse Oximetry [ Bilateral Throughout] 09/27/16 09/27/16 09/27/16 08:15 08:30 08:45 Temperature Pulse Rate 63 62 64 Pulse Rate [ From Monitor] Respiratory 18 18 18 Rate Blood Pressure 108/62 106/67 106/67 O2 Sat by Pulse 99 99 96 Oximetry O2 Sat by Pulse Oximetry [ Bilateral Throughout] 09/27/16 09/27/16 09/27/16 09:00 09:15 09:31 Temperature Pulse Rate 62 62 59 L Pulse Rate [ From Monitor] Respiratory 18 18 18 Rate Blood Pressure 114/62 114/62 114/62 O2 Sat by Pulse 98 99 99 Oximetry O2 Sat by Pulse Oximetry [ Bilateral Throughout] 09/27/16 09/27/16 09/27/16 09:45 10:00 10:15 Temperature Pulse Rate 57 L 67 59 L Pulse Rate [ From Monitor] Respiratory 18 18 18 Rate Blood Pressure 114/62 98/64 98/64 O2 Sat by Pulse 99 98 99 Oximetry O2 Sat by Pulse Oximetry [ Bilateral Throughout] 09/27/16 09/27/16 09/27/16 10:30 10:45 11:00 Temperature 97.6 F Pulse Rate 60 68 71 Pulse Rate [ From Monitor] Respiratory 18 19 Rate Blood Pressure 125/65 138/73 124/71 O2 Sat by Pulse 98 97 Oximetry O2 Sat by Pulse 99 Oximetry [ Bilateral Throughout] 09/27/16 09/27/16 09/27/16 11:01 11:15 11:30 Temperature Pulse Rate 72 71 74 Pulse Rate [ From Monitor] Respiratory 19 18 17 Rate Blood Pressure 124/71 124/71 129/74 O2 Sat by Pulse 100 97 100 Oximetry O2 Sat by Pulse Oximetry [ Bilateral Throughout] 09/27/16 09/27/16 09/27/16 11:45 11:55 12:00 Temperature 98.2 F Pulse Rate 71 70 Pulse Rate [ 72 From Monitor] Respiratory 18 18 Rate Blood Pressure 128/70 107/60 132/70 O2 Sat by Pulse 96 95 Oximetry O2 Sat by Pulse Oximetry [ Bilateral Throughout] 09/27/16 09/27/16 09/27/16 12:15 12:30 12:45 Temperature Pulse Rate 69 68 70 Pulse Rate [ From Monitor] Respiratory 19 18 22 Rate Blood Pressure 129/69 140/74 133/73 O2 Sat by Pulse 94 95 95 Oximetry O2 Sat by Pulse Oximetry [ Bilateral Throughout] 09/27/16 09/27/16 09/27/16 13:00 13:15 13:20 Temperature Pulse Rate 70 68 68 Pulse Rate [ From Monitor] Respiratory 20 20 Rate Blood Pressure 144/77 139/75 139/75 O2 Sat by Pulse 96 95 99 Oximetry O2 Sat by Pulse Oximetry [ Bilateral Throughout] 09/27/16 09/27/16 09/27/16 13:30 13:45 14:00 Temperature Pulse Rate 69 70 69 Pulse Rate [ From Monitor] Respiratory 20 18 18 Rate Blood Pressure 141/78 143/79 150/82 O2 Sat by Pulse 96 95 96 Oximetry O2 Sat by Pulse Oximetry [ Bilateral Throughout] 09/27/16 09/27/16 09/27/16 14:15 14:20 14:31 Temperature 97.6 F Pulse Rate 71 69 68 Pulse Rate [ From Monitor] Respiratory 18 18 17 Rate Blood Pressure 148/81 148/81 146/79 O2 Sat by Pulse 95 100 Oximetry O2 Sat by Pulse 99 Oximetry [ Bilateral Throughout] 09/27/16 09/27/16 09/27/16 14:45 15:00 15:15 Temperature Pulse Rate 69 67 69 Pulse Rate [ From Monitor] Respiratory 18 19 21 Rate Blood Pressure 150/82 144/78 144/78 O2 Sat by Pulse 100 98 98 Oximetry O2 Sat by Pulse Oximetry [ Bilateral Throughout] 09/27/16 09/27/16 09/27/16 15:30 15:45 16:00 Temperature 97.7 F Pulse Rate 66 65 65 Pulse Rate [ 63 From Monitor] Respiratory 19 18 18 Rate Blood Pressure 144/78 144/78 143/76 O2 Sat by Pulse 98 100 96 Oximetry O2 Sat by Pulse Oximetry [ Bilateral Throughout] 09/27/16 16:15 Temperature Pulse Rate 63 Pulse Rate [ From Monitor] Respiratory 18 Rate Blood Pressure 143/76 O2 Sat by Pulse 100 Oximetry O2 Sat by Pulse Oximetry [ Bilateral Throughout] - Labs 09/27/16 06:00 09/27/16 06:00 Diabetes panel 09/27/16 Range/Units 06:00 Sodium 132 L (137-145) mmol/L Potassium 6.6 H* D (3.6-5.0) mmol/L Chloride 91.8 L (98-107) mmol/L Carbon Dioxide 22 (22-30) mmol/L BUN 52 H (9-20) mg/dL Creatinine 10.8 H (0.8-1.5) mg/dL Glucose 93 (75-100) mg/dL Calcium 6.7 L D (8.4-10.2) mg/dL AST 15 (5-40) units/L ALT < 5 L (7-56) units/L Alkaline Phosphatase 120 (35-129) units/L Total Protein 6.5 (6.3-8.2) g/dL Albumin 3.4 L (3.9-5) g/dL Calcium panel 09/27/16 Range/Units 06:00 Calcium 6.7 L D (8.4-10.2) mg/dL Albumin 3.4 L (3.9-5) g/dL Pituitary panel 09/27/16 Range/Units 06:00 Sodium 132 L (137-145) mmol/L Potassium 6.6 H* D (3.6-5.0) mmol/L Chloride 91.8 L (98-107) mmol/L Carbon Dioxide 22 (22-30) mmol/L BUN 52 H (9-20) mg/dL Creatinine 10.8 H (0.8-1.5) mg/dL Glucose 93 (75-100) mg/dL Calcium 6.7 L D (8.4-10.2) mg/dL Adrenal panel 09/27/16 Range/Units 06:00 Sodium 132 L (137-145) mmol/L Potassium 6.6 H* D (3.6-5.0) mmol/L Chloride 91.8 L (98-107) mmol/L Carbon Dioxide 22 (22-30) mmol/L BUN 52 H (9-20) mg/dL Creatinine 10.8 H (0.8-1.5) mg/dL Glucose 93 (75-100) mg/dL Calcium 6.7 L D (8.4-10.2) mg/dL Total Bilirubin 0.2 (0.1-1.2) mg/dL AST 15 (5-40) units/L ALT < 5 L (7-56) units/L Alkaline Phosphatase 120 (35-129) units/L Total Protein 6.5 (6.3-8.2) g/dL Albumin 3.4 L (3.9-5) g/dL
--- NOTE | 2016-09-27 17:17 | Progress Note ---
Assessment and Plan Imp: 1. Neck hematoma s/p evacuation 2. Acute respiratory failure, hypoxia 3. Cocaine abuse 4. ESRD 5. Pulm HTN, suspect 2/2 #'s 2, 3, and chronic diastolic CHF; can screen for ESTEFANI and other pulm issues once extubated Rec: 1. Wean PEEP to 5; hold PSV today due to ABG; repeat ABG after dialysis/volume removal 2. Monitor H/H 3. SCDs 4. D/c cocaine 5. Obtain better history after extubation; re: pulm HTN consider RHC at some point 6. Further plans pending clinical course CCT 31 minutes No family present Subjective Date of service: 09/27/16 Principal diagnosis: neck hematoma, s/p parathyroidectomy Interval history: No events. On PEEP of 10 and FiO2 of 50%. Awake, alert. Appropriate. On HD. No obvious complaints. Active Medications Famotidine (Pepcid) 20 mg IV DAILY HALEY Last Admin: 09/27/16 09:05 Dose: 20 mg Hydrophilic Ointment (Vaseline Lip Therapy) 1 applic TP Q2HR PRN PRN Reason: Dry Lips Propofol (Diprivan 10 Mg/Ml) 1,000 mg in 100 mls @ 2.994 mls/hr IV TITR HALEY; 5 MCG/KG/MIN PRN Reason: Protocol Last Titration: 09/27/16 16:05 Dose: 0 mcg/kg/min, 0 mls/hr Fentanyl Citrate (Fentanyl Drip Premix) 2,000 mcg in 100 mls @ 4.99 mls/hr IV TITR HALEY; 1 MCG/KG/HR PRN Reason: Protocol Last Titration: 09/27/16 16:03 Dose: 0 mcg/kg/hr, 0 mls/hr Sodium Chloride (Nacl 0.9%) 100 mls @ 999 mls/hr IV RITIKA PRN PRN Reason: Hypotension Dextrose/Sodium Chloride (D5ns) 1,000 mls @ 50 mls/hr IV DIRECT HALEY Last Admin: 09/27/16 15:57 Dose: 50 mls/hr Multi-Ingred Cream/Lotion/Oil/Oint (Artificial Tears Ophth Oint) 1 applic OU Q4HR PRN PRN Reason: Dry Eye(s) Last Admin: 09/27/16 09:05 Dose: 1 applic Objective Vital Signs - 12hr 09/27/16 09/27/1609/27/17 05:15 05:30 05:45 Temperature Pulse Rate 60 58 L 57 L Pulse Rate [ From Monitor] Respiratory 18 18 18 Rate Blood Pressure 84/45 93/52 93/52 O2 Sat by Pulse 99 98 99 Oximetry O2 Sat by Pulse Oximetry [ Bilateral Throughout] 09/27/16 09/27/16 09/27/16 06:00 06:15 06:30 Temperature Pulse Rate 58 L 60 61 Pulse Rate [ From Monitor] Respiratory 18 18 18 Rate Blood Pressure 98/54 98/54 102/60 O2 Sat by Pulse 98 99 99 Oximetry O2 Sat by Pulse Oximetry [ Bilateral Throughout] 09/27/16 09/27/16 09/27/16 06:45 07:00 07:15 Temperature Pulse Rate 59 L 61 61 Pulse Rate [ From Monitor] Respiratory 18 18 18 Rate Blood Pressure 102/60 107/60 107/60 O2 Sat by Pulse 99 99 99 Oximetry O2 Sat by Pulse Oximetry [ Bilateral Throughout] 09/27/16 09/27/16 09/27/16 07:23 07:30 07:45 Temperature Pulse Rate 61 61 61 Pulse Rate [ From Monitor] Respiratory 18 18 Rate Blood Pressure 107/60 102/57 102/57 O2 Sat by Pulse 99 99 99 Oximetry O2 Sat by Pulse Oximetry [ Bilateral Throughout] 09/27/16 09/27/16 09/27/16 08:00 08:15 08:30 Temperature 97.6 F Pulse Rate 62 63 62 Pulse Rate [ 60 From Monitor] Respiratory 18 18 18 Rate Blood Pressure 108/62 108/62 106/67 O2 Sat by Pulse 98 99 99 Oximetry O2 Sat by Pulse Oximetry [ Bilateral Throughout] 09/27/16 09/27/16 09/27/16 08:45 09:00 09:15 Temperature Pulse Rate 64 62 62 Pulse Rate [ From Monitor] Respiratory 18 18 18 Rate Blood Pressure 106/67 114/62 114/62 O2 Sat by Pulse 96 98 99 Oximetry O2 Sat by Pulse Oximetry [ Bilateral Throughout] 09/27/16 09/27/16 09/27/16 09:31 09:45 10:00 Temperature Pulse Rate 59 L 57 L 67 Pulse Rate [ From Monitor] Respiratory 18 18 18 Rate Blood Pressure 114/62 114/62 98/64 O2 Sat by Pulse 99 99 98 Oximetry O2 Sat by Pulse Oximetry [ Bilateral Throughout] 09/27/16 09/27/16 09/27/16 10:15 10:30 10:45 Temperature 97.6 F Pulse Rate 59 L 60 68 Pulse Rate [ From Monitor] Respiratory 18 18 19 Rate Blood Pressure 98/64 125/65 138/73 O2 Sat by Pulse 99 98 97 Oximetry O2 Sat by Pulse 99 Oximetry [ Bilateral Throughout] 09/27/16 09/27/16 09/27/16 11:00 11:01 11:15 Temperature Pulse Rate 71 72 71 Pulse Rate [ From Monitor] Respiratory 19 18 Rate Blood Pressure 124/71 124/71 124/71 O2 Sat by Pulse 100 97 Oximetry O2 Sat by Pulse Oximetry [ Bilateral Throughout] 09/27/16 09/27/16 09/27/16 11:30 11:45 11:55 Temperature Pulse Rate 74 71 Pulse Rate [ From Monitor] Respiratory 17 18 Rate Blood Pressure 129/74 128/70 107/60 O2 Sat by Pulse 100 96 Oximetry O2 Sat by Pulse Oximetry [ Bilateral Throughout] 09/27/16 09/27/16 09/27/16 12:00 12:15 12:30 Temperature 98.2 F Pulse Rate 70 69 68 Pulse Rate [ 72 From Monitor] Respiratory 18 19 18 Rate Blood Pressure 132/70 129/69 140/74 O2 Sat by Pulse 95 94 95 Oximetry O2 Sat by Pulse Oximetry [ Bilateral Throughout] 09/27/16 09/27/16 09/27/16 12:45 13:00 13:15 Temperature Pulse Rate 70 70 68 Pulse Rate [ From Monitor] Respiratory 22 20 20 Rate Blood Pressure 133/73 144/77 139/75 O2 Sat by Pulse 95 96 95 Oximetry O2 Sat by Pulse Oximetry [ Bilateral Throughout] 09/27/16 09/27/16 09/27/16 13:20 13:30 13:45 Temperature Pulse Rate 68 69 70 Pulse Rate [ From Monitor] Respiratory 20 18 Rate Blood Pressure 139/75 141/78 143/79 O2 Sat by Pulse 99 96 95 Oximetry O2 Sat by Pulse Oximetry [ Bilateral Throughout] 09/27/16 09/27/16 09/27/16 14:00 14:15 14:20 Temperature 97.6 F Pulse Rate 69 71 69 Pulse Rate [ From Monitor] Respiratory 18 18 18 Rate Blood Pressure 150/82 148/81 148/81 O2 Sat by Pulse 96 95 Oximetry O2 Sat by Pulse 99 Oximetry [ Bilateral Throughout] 09/27/16 09/27/16 09/27/16 14:31 14:45 15:00 Temperature Pulse Rate 68 69 67 Pulse Rate [ From Monitor] Respiratory 17 18 19 Rate Blood Pressure 146/79 150/82 144/78 O2 Sat by Pulse 100 100 98 Oximetry O2 Sat by Pulse Oximetry [ Bilateral Throughout] 09/27/16 09/27/16 09/27/16 15:15 15:30 15:45 Temperature Pulse Rate 69 66 65 Pulse Rate [ From Monitor] Respiratory 21 19 18 Rate Blood Pressure 144/78 144/78 144/78 O2 Sat by Pulse 98 98 100 Oximetry O2 Sat by Pulse Oximetry [ Bilateral Throughout] 09/27/16 09/27/16 16:00 16:15 Temperature 97.7 F Pulse Rate 65 63 Pulse Rate [ 63 From Monitor] Respiratory 18 18 Rate Blood Pressure 143/76 143/76 O2 Sat by Pulse 96 100 Oximetry O2 Sat by Pulse Oximetry [ Bilateral Throughout] Constitutional: alert, other (critically ill on ventilator) Eyes: non-icteric ENT: oropharynx moist Neck: other (pressure dressing in place) Ascultation: Bilateral: other (coarse equal BS bilaterally) Cardiovascular: regular rate and rhythm (no mrg) Gastrointestinal: normoactive bowel sounds, soft, non-tender, non-distended Integumentary: normal Extremities: no cyanosis, no edema, pink and warm Neurologic: normal mental status, non-focal exam, pupils equal and round, CN II- XII normal Psychiatric: mood appropriate, affect normal CBC and BMP: 09/27/16 06:00 09/27/16 06:00 ABG, PT/INR, D-dimer: ABG POC ABG pH 7.272 (7.35-7.45) L 09/27/16 04:06 POC ABG pCO2 53.8 (35-45) H 09/27/16 04:06 POC ABG pO2 112 (80-105) H 09/27/16 04:06 POC ABG HCO3 24.8 09/27/16 04:06 POC ABG Total CO2 26 09/27/16 04:06 POC ABG O2 Sat 98 09/27/16 04:06 PT/INR, D-dimer PT 14.0 Sec. (12.2-14.9) 09/26/16 03:30 INR 1.09 (0.87-1.13) 09/26/16 03:30 Abnormal lab findings: Abnormal Labs 09/26/16 09/26/16 09/26/16 03:30 04:17 05:16 WBC RBC 3.05 L Hgb 9.2 L Hct 28.9 L MCV 95 H RDW 15.7 H Lymph % (Auto) 2.5 L [place] % (Auto) Eos % (Auto) Lymph # 0.2 L Eos # 0.5 H Seg Neutrophils % 86.9 H Lymphocytes % (Manual) 6.0 L Monocytes % (Manual) 8.0 H Eosinophils % (Manual) 19.0 H Basophils % (Manual) 2.0 H Lymphocytes # (Manual) 0.4 L Eosinophils # (Manual) 1.3 H POC ABG pH POC ABG pCO2 POC ABG pO2 78 L Sodium 134 L Potassium Chloride 91.2 L BUN 38 H Creatinine 8.8 H POC Glucose Calcium ALT Albumin 09/26/16 09/26/16 09/26/16 08:37 10:51 21:26 WBC 4.3 L RBC 2.72 L Hgb 8.3 L 7.9 L Hct 25.7 L 24.5 L MCV 95 H RDW 15.3 H Lymph % (Auto) [place] % (Auto) Eos % (Auto) Lymph # Eos # Seg Neutrophils % Lymphocytes % (Manual) Monocytes % (Manual) Eosinophils % (Manual) Basophils % (Manual) Lymphocytes # (Manual) Eosinophils # (Manual) POC ABG pH POC ABG pCO2 POC ABG pO2 Sodium Potassium Chloride BUN Creatinine POC Glucose 132 H Calcium ALT Albumin 09/27/16 09/27/16 09/27/16 04:06 06:00 06:00 WBC RBC 2.55 L Hgb 7.7 L Hct 24.1 L MCV RDW Lymph % (Auto) 9.0 L [place] % (Auto) 13.5 H Eos % (Auto) 5.0 H Lymph # 0.4 L Eos # Seg Neutrophils % 71.7 H Lymphocytes % (Manual) Monocytes % (Manual) Eosinophils % (Manual) Basophils % (Manual) Lymphocytes # (Manual) Eosinophils # (Manual) POC ABG pH 7.272 L POC ABG pCO2 53.8 H POC ABG pO2 112 H Sodium 132 L Potassium 6.6 H* D Chloride 91.8 L BUN 52 H Creatinine 10.8 H POC Glucose Calcium 6.7 L D ALT < 5 L Albumin 3.4 L Chest x-ray: report reviewed, image reviewed (reviewed)
[2016-09-27] MEDS: SUBLIMAZE IV PRN (17:38)
--- NOTE | 2016-09-27 18:57 | Admit Criteria Form ---
Admission Criteria Documentation: RESPIRATORY FAILURE GRG Clinical Indications for Admission to Inpatient Care (Place 'X' for any and all applicable criteria): Hospital admission is needed for appropriate care of the patient because of acute respiratory failure or insufficiency as indicated by ANY ONE of the following(1)(2)(3)(4)(5)(6)(7)(8): [ X]I. Mechanical ventilation needed (acute invasive or noninvasive) [ ]II. Severe ventilation deficit as indicated by ANY ONE of the following (9) [ ]a) Respiratory acidosis (pH less than 7.32 and partial pressure of carbon dioxide greater than 40 mm Hg (5.3 kPa)) [ ]b) Partial pressure of carbon dioxide greater than 44 mm Hg (5.9 kPa ) (new) [ ]c) Airflow measurements less than 25% of predicted (eg, peak expiratory flow rate less than 100 L/minute) [ ]d) Forced vital capacity less than 15 mL/kg of ideal body weight, or 50% decrease in vital capacity from baseline [ ]III. Noncardiac pulmonary edema not resolving with rapid emergency treatment (8) [ ]IV. Severe respiratory distress as indicated by ANY ONE of the following: [ ]a) Severe tachypnea (respiratory rate greater than 30, greater than 45 for 6-month-old, greater than 60 for ) [ ]b) Severe hypoxemia (partial pressure of oxygen less than 50 mm Hg ( 6.7 kPa) on greater than 50% oxygen or partial pressure of oxygen to FIO2 ratio less than 200) [ ]c) Mental status deterioration from respiratory disease [ ]V. Airway obstruction or inadequate protection [A](10)(11) The original [employer] content created by [employer] has been revised. The portions of the content which have been revised are identified through the use of italic text or in bold, and [employer] has neither reviewed nor approved the modified material. All other unmodified content is copyright [employer]. Please see references footnoted in the original [employer] edition 2016 Admission Criteria Met: Yes
[2016-09-28] MEDS: D5NS 1,000 ML IV SCH (08:02)
--- NOTE | 2016-09-28 08:09 | XRay Report ---
CHEST 1 VIEW INDICATION: Respiratory failure. COMPARISON: Yesterday. FINDINGS: Portable, frontal chest radiograph, 1:56 AM, 09/28/2016 reveals stable cardiomediastinal silhouette, supporting devices, appearance of the lungs and osseous structures, providing for the difference in technique. CONCLUSION: Stable endotracheal tube and left retrocardiac opacity. Thank you for the opportunity to participate in this patient's care.
--- NOTE | 2016-09-28 09:13 | Progress Note ---
Assessment and Plan Impression: * End stage renal disease on HD MWF * Hematoma s/p parathyroidectomy * Acute respiratory failure secondary to hematoma * Relative hypotension; hx of hypertension * Hyperkalemia Plan: * Hemodialysis MWF schedule. UF as tolerated. No heparin * Surgery following - he is s/p hematoma evacuation * Patient is s/p parathyroidectomy. Will give IV Ca. May require continuous gtt as he is NPO * Repeat BMP this afternoon * Continue anti HTN medications * Transfusion of pRBC prn * Epogen protocol * Nutrition per primary team Subjective Date of service: 09/28/16 Principal diagnosis: neck hematoma, s/p parathyroidectomy Interval history: Patient is intubated. Sedation weaned Objective - Vital Signs Vital signs: Vital Signs - 12hr 09/27/16 09/27/16 09/27/16 21:15 21:27 21:30 Temperature Pulse Rate 67 77 74 Pulse Rate [ From Monitor] Respiratory 19 19 Rate Respiratory Rate [Throat] Blood Pressure 145/82 145/82 153/78 O2 Sat by Pulse 100 100 98 Oximetry 09/27/16 09/27/16 09/27/16 21:40 21:45 22:00 Temperature Pulse Rate 74 78 75 Pulse Rate [ From Monitor] Respiratory 18 19 21 Rate Respiratory 18 Rate [Throat] Blood Pressure 153/78 146/79 O2 Sat by Pulse 98 99 97 Oximetry 09/27/16 09/27/16 09/27/16 22:15 22:30 22:35 Temperature Pulse Rate 74 85 85 Pulse Rate [ From Monitor] Respiratory 19 19 19 Rate Respiratory 18 Rate [Throat] Blood Pressure 146/79 164/89 O2 Sat by Pulse 99 95 98 Oximetry 09/27/16 09/27/16 09/27/16 22:45 23:00 23:15 Temperature Pulse Rate 83 80 83 Pulse Rate [ From Monitor] Respiratory 19 18 21 Rate Respiratory 18 Rate [Throat] Blood Pressure 164/89 152/76 152/76 O2 Sat by Pulse 97 98 100 Oximetry 09/27/16 09/27/16 09/28/16 23:30 23:45 00:00 Temperature 98.3 F Pulse Rate 75 73 73 Pulse Rate [ From Monitor] Respiratory 18 18 18 Rate Respiratory Rate [Throat] Blood Pressure 137/70 137/70 133/73 O2 Sat by Pulse 98 100 98 Oximetry 09/28/16 09/28/16 09/28/16 00:01 00:15 00:30 Temperature Pulse Rate 68 70 74 Pulse Rate [ From Monitor] Respiratory 18 19 18 Rate Respiratory Rate [Throat] Blood Pressure 133/73 133/73 153/84 O2 Sat by Pulse 100 100 97 Oximetry 09/28/16 09/28/16 09/28/16 00:31 00:45 01:00 Temperature Pulse Rate 74 79 79 Pulse Rate [ From Monitor] Respiratory 15 18 Rate Respiratory Rate [Throat] Blood Pressure 133/73 153/84 157/81 O2 Sat by Pulse 100 99 97 Oximetry 09/28/16 09/28/16 09/28/16 01:15 01:30 01:45 Temperature Pulse Rate 76 73 71 Pulse Rate [ From Monitor] Respiratory 18 17 18 Rate Respiratory Rate [Throat] Blood Pressure 157/81 150/78 150/78 O2 Sat by Pulse 100 98 100 Oximetry 09/28/16 09/28/16 09/28/16 02:00 02:15 02:30 Temperature Pulse Rate 72 71 71 Pulse Rate [ From Monitor] Respiratory 18 18 19 Rate Respiratory Rate [Throat] Blood Pressure 157/82 157/82 158/84 O2 Sat by Pulse 98 100 97 Oximetry 09/28/16 09/28/16 09/28/16 02:45 03:00 03:15 Temperature Pulse Rate 71 71 81 Pulse Rate [ From Monitor] Respiratory 18 22 19 Rate Respiratory Rate [Throat] Blood Pressure 158/84 158/83 158/83 O2 Sat by Pulse 100 100 99 Oximetry 09/28/16 09/28/16 09/28/16 03:30 03:45 03:50 Temperature Pulse Rate 76 76 Pulse Rate [ From Monitor] Respiratory 19 19 18 Rate Respiratory Rate [Throat] Blood Pressure 155/81 155/81 O2 Sat by Pulse 97 100 98 Oximetry 09/28/16 09/28/16 09/28/16 04:00 04:12 04:15 Temperature 98.3 F Pulse Rate 77 96 H 89 Pulse Rate [ From Monitor] Respiratory 18 19 Rate Respiratory Rate [Throat] Blood Pressure 161/82 161/82 155/81 O2 Sat by Pulse 97 99 96 Oximetry 09/28/16 09/28/16 09/28/16 04:30 04:45 05:00 Temperature Pulse Rate 87 81 86 Pulse Rate [ From Monitor] Respiratory 18 18 14 Rate Respiratory Rate [Throat] Blood Pressure 166/84 161/82 165/86 O2 Sat by Pulse 94 95 92 Oximetry 09/28/16 09/28/16 09/28/16 05:15 05:30 05:45 Temperature Pulse Rate 86 84 84 Pulse Rate [ From Monitor] Respiratory 19 20 20 Rate Respiratory Rate [Throat] Blood Pressure 165/86 162/83 162/83 O2 Sat by Pulse 96 93 97 Oximetry 09/28/16 09/28/16 09/28/16 06:00 06:05 06:15 Temperature Pulse Rate 63 82 Pulse Rate [ From Monitor] Respiratory 18 18 19 Rate Respiratory Rate [Throat] Blood Pressure 139/65 139/65 O2 Sat by Pulse 98 98 95 Oximetry 09/28/16 09/28/16 09/28/16 06:30 06:45 07:00 Temperature Pulse Rate 82 81 85 Pulse Rate [ From Monitor] Respiratory 21 18 19 Rate Respiratory Rate [Throat] Blood Pressure 171/89 171/89 183/95 O2 Sat by Pulse 94 99 96 Oximetry 09/28/16 09/28/16 09/28/16 07:15 07:27 07:30 Temperature Pulse Rate 91 H 87 86 Pulse Rate [ From Monitor] Respiratory 13 18 Rate Respiratory Rate [Throat] Blood Pressure 183/95 183/95 184/95 O2 Sat by Pulse 98 98 94 Oximetry 09/28/16 09/28/16 09/28/16 07:41 07:45 08:00 Temperature 98.4 F Pulse Rate 92 H 89 87 Pulse Rate [ 86 From Monitor] Respiratory 26 H 26 H 14 Rate Respiratory Rate [Throat] Blood Pressure 184/95 184/95 180/89 O2 Sat by Pulse 97 98 95 Oximetry 09/28/16 09/28/16 08:15 08:31 Temperature Pulse Rate 87 87 Pulse Rate [ From Monitor] Respiratory 15 14 Rate Respiratory Rate [Throat] Blood Pressure 180/89 180/89 O2 Sat by Pulse 98 99 Oximetry - General Appearance General appearance: well-developed, well-nourished EENT: ATNC Respiratory: Present: Clear to Ascultation Cardiology: regular, S1S2 Gastrointestinal: normal, no tenderness, no distended Integumentary: no rash Musculoskeletal: other (no edema) Psychiatric: cooperative - Lab 09/28/16 09:39 09/27/16 06:00 Most recent lab results Calcium 6.7 mg/dL (8.4-10.2) L D 09/27/16 06:00
--- NOTE | 2016-09-28 09:15 | Progress Note ---
Assessment and Plan Assessment: Neck hematoma s/p evacuation / s/p parathyroidectomy Acute respiratory failure - intubated. Acute blood loss anemia - AM labs pending. ESRD, on HD - on MWF schedule. HTN Obesity Moderate pulmonary HTN - RVSP 61mmHg on echo 09/26/2016. Tobacco use / cocaine use Plan: Echo reviewed - mild concentric LHV, ER 50 - 55%, mildly dilated LA, impaired relaxation, posterior mitral annular calcification, mild TR, moderate pulmonary HTN, RVSP 61mmHg. Initiate PRN IV hydralazine, 10mg Q6H for SBP >160. Wean vent as tolerated. The patient has been seen in conjunction with Dr. Garrett who agrees with the assessment and plan of care. Subjective Date of service: 09/28/16 Principal diagnosis: neck hematoma, s/p parathyroidectomy Interval history: Pt resting in bed, remains intubated, alert and following commands appropriately. In SR on tele with 1st degree AV block, BPs elevated this AM. No family at bedside. Objective Last Vital Signs Temp 98.4 F 09/28/16 08:00 Pulse 85 09/28/16 09:00 Resp 13 09/28/16 09:00 BP 180/89 09/28/16 09:00 Pulse Ox 95 09/28/16 09:00 - Physical Examination General: No Apparent Distress HEENT: Positive: PERRL, EOMI, Normocephaly, Mucus Membranes Moist Neck: Positive: Other (pressure dressing applied to anterior neck; anterior neck swelling noted) Cardiac: Positive: Reg Rate and Rhythm, S1/S2, Systolic Murmur Lungs: Positive: Decreased Breath Sounds, Ventilated Respirations Neuro: Positive: Grossly Intact, Cranial Nerve 2-12 Intact Abdomen: Positive: Unremarkable, Soft, Active Bowel Sounds Skin: Positive: Clear, Other (anterior neck swelling ). Negative: Rash Musculoskeletal: No Pain Extremities: Present: upper extr. pulses, lower extr. pulses. Absent: edema - Labs and Meds Comprehensive Metabolic Panel 09/27/16 Range/Units 06:00 Potassium 6.6 H* D (3.6-5.0) mmol/L Calcium 6.7 L D (8.4-10.2) mg/dL ALT < 5 L (7-56) units/L - Imaging and Cardiology EKG: pending Echo: report reviewed (09/26/2016: mild concentric LHV, ER 50 - 55%, mildly dilated LA, impaired relaxation, posterior mitral annular calcification, mild TR , moderate pulmonary HTN, RVSP 61mmHg) - Telemetry EKG Rhythm: 1st Degree HB
[2016-09-28] MEDS ORDERED: APRESOLINE IV PRN (09:29)
[2016-09-28] MEDS: PEPCID IV SCH (09:54)
[2016-09-28 10:06] LABS: Basophils % (Auto) 0.6 % (0.0-1.8); Eosinophils % (Auto) 15.1 % (0.0-4.3); Hematocrit 22.9 % (35.5-45.6); Hemoglobin 7.4 gm/dl (11.8-15.2); Mean Corpuscular HGB Conc 33 % (32-34); Mean Corpuscular Hemoglobin 30 pg (28-32); Mean Corpuscular Volume 94 fl (84-94); Platelet Count 158 K/mm3 (140-440); Red Blood Count 2.45 M/mm3 (3.65-5.03); Red Cell Distribution Width 14.8 % (13.2-15.2); White Blood Count 5.3 K/mm3 (4.5-11.0)
[2016-09-28 10:20] LABS: BUN/Creatinine Ratio 3.71; Calcium 6.6 mg/dL (8.4-10.2); Potassium 4.6 mmol/L (3.6-5.0)
[2016-09-28] MEDS ORDERED: CALCIUM GLUCONATE 2,000 MG in NACL 0.9% 100 ML IV ONE (12:30)
[2016-09-28] MEDS: SUBLIMAZE IV PRN (13:49)
--- NOTE | 2016-09-28 14:38 | Progress Note ---
Assessment and Plan Imp: 1. Neck hematoma s/p evacuation; cytology showed acute inflammation/blood 2. Acute respiratory failure, hypoxia 3. Cocaine abuse 4. ESRD 5. Pulm HTN, suspect 2/2 #'s 2, 3, and chronic diastolic CHF; can screen for ESTEFANI and other pulm issues once extubated Rec: 1. Cont. PSV trials but will not extubate due to lack of cuff leak which suggests some airway edema due to #1 above; will give him 4 doses of IV Decadron over 24 hours and repeat cuff leak testing in AM 2. Monitor H/H -> transfuse if less than 7.0/21.0 3. SCDs 4. D/c cocaine 5. Obtain better history after extubation; re: pulm HTN consider RHC at some point 6. Place DHT today and start TFs 7. Further plans pending clinical course CCT 31 minutes D/w RN, RT on rounds; no family present Subjective Date of service: 09/28/16 Principal diagnosis: neck hematoma, s/p parathyroidectomy Interval history: No events. On PSV 10/5 and tolerating well with good mechanics but no cuff leak noted with ET cuff down (audible or significant drop in TVs). Awake, alert. Appropriate. HD done yesterday. No obvious complaints. Active Medications Dexamethasone (Decadron) 4 mg IV Q6HR HALEY Stop: 09/29/16 06:01 Famotidine (Pepcid) 20 mg IV DAILY HALEY Last Admin: 09/28/16 09:54 Dose: 20 mg Fentanyl (Sublimaze) 50 mcg IV Q3HR PRN PRN Reason: Pain Last Admin: 09/28/16 13:49 Dose: 50 mcg Hydralazine HCl (Apresoline) 20 mg IV Q6H PRN PRN Reason: Hypertension Hydrophilic Ointment (Vaseline Lip Therapy) 1 applic TP Q2HR PRN PRN Reason: Dry Lips Propofol (Diprivan 10 Mg/Ml) 1,000 mg in 100 mls @ 2.994 mls/hr IV TITR HALEY; 5 MCG/KG/MIN PRN Reason: Protocol Last Titration: 09/28/16 07:15 Dose: 0 mcg/kg/min, 0 mls/hr Fentanyl Citrate (Fentanyl Drip Premix) 2,000 mcg in 100 mls @ 4.99 mls/hr IV TITR HALEY; 1 MCG/KG/HR PRN Reason: Protocol Last Titration: 09/28/16 07:17 Dose: Infused Sodium Chloride (Nacl 0.9%) 100 mls @ 999 mls/hr IV RITIKA PRN PRN Reason: Hypotension Dextrose/Sodium Chloride (D5ns) 1,000 mls @ 50 mls/hr IV DIRECT HALEY Last Admin: 09/28/16 08:02 Dose: 50 mls/hr Multi-Ingred Cream/Lotion/Oil/Oint (Artificial Tears Ophth Oint) 1 applic OU Q4HR PRN PRN Reason: Dry Eye(s) Last Admin: 09/27/16 09:05 Dose: 1 applic Objective Vital Signs - 12hr 09/28/16 09/28/16 09/28/16 02:45 03:00 03:15 Temperature Pulse Rate 71 71 81 Pulse Rate [ From Monitor] Respiratory 18 22 19 Rate Blood Pressure 158/84 158/83 158/83 O2 Sat by Pulse 100 100 99 Oximetry 09/28/16 09/28/16 09/28/16 03:30 03:45 03:50 Temperature Pulse Rate 76 76 Pulse Rate [ From Monitor] Respiratory 19 19 18 Rate Blood Pressure 155/81 155/81 O2 Sat by Pulse 97 100 98 Oximetry 09/28/16 09/28/16 09/28/16 04:00 04:12 04:15 Temperature 98.3 F Pulse Rate 77 96 H 89 Pulse Rate [ From Monitor] Respiratory 18 19 Rate Blood Pressure 161/82 161/82 155/81 O2 Sat by Pulse 97 99 96 Oximetry 09/28/16 09/28/16 09/28/16 04:30 04:45 05:00 Temperature Pulse Rate 87 81 86 Pulse Rate [ From Monitor] Respiratory 18 18 14 Rate Blood Pressure 166/84 161/82 165/86 O2 Sat by Pulse 94 95 92 Oximetry 09/28/16 09/28/16 09/28/16 05:15 05:30 05:45 Temperature Pulse Rate 86 84 84 Pulse Rate [ From Monitor] Respiratory 19 20 20 Rate Blood Pressure 165/86 162/83 162/83 O2 Sat by Pulse 96 93 97 Oximetry 09/28/16 09/28/16 09/28/16 06:00 06:05 06:15 Temperature Pulse Rate 63 82 Pulse Rate [ From Monitor] Respiratory 18 18 19 Rate Blood Pressure 139/65 139/65 O2 Sat by Pulse 98 98 95 Oximetry 09/28/16 09/28/16 09/28/16 06:30 06:45 07:00 Temperature Pulse Rate 82 81 85 Pulse Rate [ From Monitor] Respiratory 21 18 19 Rate Blood Pressure 171/89 171/89 183/95 O2 Sat by Pulse 94 99 96 Oximetry 09/28/16 09/28/16 09/28/16 07:15 07:27 07:30 Temperature Pulse Rate 91 H 87 86 Pulse Rate [ From Monitor] Respiratory 13 18 Rate Blood Pressure 183/95 183/95 184/95 O2 Sat by Pulse 98 98 94 Oximetry 09/28/16 09/28/16 09/28/16 07:41 07:45 08:00 Temperature 98.4 F Pulse Rate 92 H 89 87 Pulse Rate [ 86 From Monitor] Respiratory 26 H 26 H 14 Rate Blood Pressure 184/95 184/95 180/89 O2 Sat by Pulse 97 98 95 Oximetry 09/28/16 09/28/16 09/28/16 08:15 08:31 08:45 Temperature Pulse Rate 87 87 88 Pulse Rate [ From Monitor] Respiratory 15 14 15 Rate Blood Pressure 180/89 180/89 180/89 O2 Sat by Pulse 98 99 99 Oximetry 09/28/16 09/28/16 09/28/16 09:00 09:15 09:31 Temperature Pulse Rate 85 84 84 Pulse Rate [ From Monitor] Respiratory 13 12 15 Rate Blood Pressure 180/89 180/89 175/89 O2 Sat by Pulse 95 99 99 Oximetry 09/28/16 09/28/16 09/28/16 09:45 09:53 09:58 Temperature Pulse Rate 83 86 86 Pulse Rate [ From Monitor] Respiratory 15 Rate Blood Pressure 175/89 175/89 O2 Sat by Pulse 99 Oximetry 09/28/16 09/28/16 09/28/16 10:00 10:15 10:31 Temperature Pulse Rate 85 87 88 Pulse Rate [ From Monitor] Respiratory 15 17 16 Rate Blood Pressure 174/88 174/88 174/88 O2 Sat by Pulse 96 99 99 Oximetry 09/28/16 09/28/16 09/28/16 10:45 11:00 11:15 Temperature Pulse Rate 89 91 H 85 Pulse Rate [ From Monitor] Respiratory 13 19 15 Rate Blood Pressure 174/88 172/79 172/79 O2 Sat by Pulse 100 96 99 Oximetry 09/28/16 09/28/16 09/28/16 11:31 11:45 12:00 Temperature 98.5 F Pulse Rate 87 91 H 87 Pulse Rate [ 87 From Monitor] Respiratory 16 17 16 Rate Blood Pressure 172/79 172/79 177/86 O2 Sat by Pulse 99 99 97 Oximetry 09/28/16 09/28/16 09/28/16 12:15 12:24 12:31 Temperature Pulse Rate 85 86 92 H Pulse Rate [ From Monitor] Respiratory 15 18 15 Rate Blood Pressure 177/86 177/86 177/86 O2 Sat by Pulse 99 99 99 Oximetry 09/28/16 09/28/16 09/28/16 12:45 13:00 13:15 Temperature Pulse Rate 89 85 85 Pulse Rate [ From Monitor] Respiratory 13 14 12 Rate Blood Pressure 177/86 170/83 170/83 O2 Sat by Pulse 99 97 99 Oximetry 09/28/16 09/28/16 09/28/16 13:31 13:45 14:00 Temperature Pulse Rate 86 87 86 Pulse Rate [ From Monitor] Respiratory 14 17 12 Rate Blood Pressure 170/83 170/83 173/82 O2 Sat by Pulse 98 98 95 Oximetry Constitutional: alert, other (critically ill on ventilator) Eyes: non-icteric ENT: oropharynx moist Neck: other (pressure dressing in place, neck swelling throughout) Ascultation: Bilateral: other (coarse equal BS bilaterally) Cardiovascular: regular rate and rhythm (no mrg) Gastrointestinal: normoactive bowel sounds, soft, non-tender, non-distended Integumentary: normal Extremities: no cyanosis, no edema, pink and warm Neurologic: normal mental status, non-focal exam, pupils equal and round, CN II- XII normal Psychiatric: mood appropriate, affect normal CBC and BMP: 09/28/16 09:39 09/28/16 09:39 ABG, PT/INR, D-dimer: ABG POC ABG pH 7.272 (7.35-7.45) L 09/27/16 04:06 POC ABG pCO2 53.8 (35-45) H 09/27/16 04:06 POC ABG pO2 112 (80-105) H 09/27/16 04:06 POC ABG HCO3 24.8 09/27/16 04:06 POC ABG Total CO2 26 09/27/16 04:06 POC ABG O2 Sat 98 09/27/16 04:06 PT/INR, D-dimer PT 14.0 Sec. (12.2-14.9) 09/26/16 03:30 INR 1.09 (0.87-1.13) 09/26/16 03:30 Abnormal lab findings: Abnormal Labs 09/26/16 09/26/16 09/26/16 03:30 04:17 05:16 WBC RBC 3.05 L Hgb 9.2 L Hct 28.9 L MCV 95 H RDW 15.7 H Lymph % (Auto) 2.5 L [place] % (Auto) Eos % (Auto) Lymph # 0.2 L Eos # 0.5 H Seg Neutrophils % 86.9 H Lymphocytes % (Manual) 6.0 L Monocytes % (Manual) 8.0 H Eosinophils % (Manual) 19.0 H Basophils % (Manual) 2.0 H Lymphocytes # (Manual) 0.4 L Eosinophils # (Manual) 1.3 H POC ABG pH POC ABG pCO2 POC ABG pO2 78 L Sodium 134 L Potassium Chloride 91.2 L BUN 38 H Creatinine 8.8 H POC Glucose Calcium ALT Albumin 09/26/16 09/26/16 09/26/16 08:37 10:51 21:26 WBC 4.3 L RBC 2.72 L Hgb 8.3 L 7.9 L Hct 25.7 L 24.5 L MCV 95 H RDW 15.3 H Lymph % (Auto) [place] % (Auto) Eos % (Auto) Lymph # Eos # Seg Neutrophils % Lymphocytes % (Manual) Monocytes % (Manual) Eosinophils % (Manual) Basophils % (Manual) Lymphocytes # (Manual) Eosinophils # (Manual) POC ABG pH POC ABG pCO2 POC ABG pO2 Sodium Potassium Chloride BUN Creatinine POC Glucose 132 H Calcium ALT Albumin 09/27/16 09/27/16 09/27/16 04:06 06:00 06:00 WBC RBC 2.55 L Hgb 7.7 L Hct 24.1 L MCV RDW Lymph % (Auto) 9.0 L [place] % (Auto) 13.5 H Eos % (Auto) 5.0 H Lymph # 0.4 L Eos # Seg Neutrophils % 71.7 H Lymphocytes % (Manual) Monocytes % (Manual) Eosinophils % (Manual) Basophils % (Manual) Lymphocytes # (Manual) Eosinophils # (Manual) POC ABG pH 7.272 L POC ABG pCO2 53.8 H POC ABG pO2 112 H Sodium 132 L Potassium 6.6 H* D Chloride 91.8 L BUN 52 H Creatinine 10.8 H POC Glucose Calcium 6.7 L D ALT < 5 L Albumin 3.4 L 09/28/16 09/28/16 09:39 09:39 WBC RBC 2.45 L Hgb 7.4 L Hct 22.9 L MCV RDW Lymph % (Auto) 5.3 L [place] % (Auto) 11.3 H Eos % (Auto) 15.1 H Lymph # 0.3 L Eos # 0.8 H Seg Neutrophils % Lymphocytes % (Manual) Monocytes % (Manual) Eosinophils % (Manual) Basophils % (Manual) Lymphocytes # (Manual) Eosinophils # (Manual) POC ABG pH POC ABG pCO2 POC ABG pO2 Sodium 136 L Potassium Chloride 95.0 L BUN 29 H Creatinine 7.8 H POC Glucose Calcium 6.6 L ALT Albumin Chest x-ray: report reviewed, image reviewed (mildly better expansion, o/w largely unchanged)
[2016-09-28] MEDS ORDERED: PANCREAZE DR 10,500 UNIT FEEDTUBE PRN (15:12)
[2016-09-28] MEDS ORDERED: SODIUM BICARBONATE FEEDTUBE PRN (15:12)
[2016-09-28] MEDS ORDERED: SIMPLE SYRUP FEEDTUBE PRN ×2 (15:12)
[2016-09-28] MEDS: DECADRON IV SCH ×2 (15:44→21:41)
--- NOTE | 2016-09-28 16:26 | Progress Note ---
Subjective Narrative: doing OK , still entubated ,wound OK small bandage applied , will start PO once extubated , Objective Vital Signs - 12hr 09/28/16 09/28/16 09/28/16 04:30 04:45 05:00 Temperature Pulse Rate 87 81 86 Pulse Rate [ From Monitor] Respiratory 18 18 14 Rate Blood Pressure 166/84 161/82 165/86 O2 Sat by Pulse 94 95 92 Oximetry 09/28/16 09/28/16 09/28/16 05:15 05:30 05:45 Temperature Pulse Rate 86 84 84 Pulse Rate [ From Monitor] Respiratory 19 20 20 Rate Blood Pressure 165/86 162/83 162/83 O2 Sat by Pulse 96 93 97 Oximetry 09/28/16 09/28/16 09/28/16 06:00 06:05 06:15 Temperature Pulse Rate 63 82 Pulse Rate [ From Monitor] Respiratory 18 18 19 Rate Blood Pressure 139/65 139/65 O2 Sat by Pulse 98 98 95 Oximetry 09/28/16 09/28/16 09/28/16 06:30 06:45 07:00 Temperature Pulse Rate 82 81 85 Pulse Rate [ From Monitor] Respiratory 21 18 19 Rate Blood Pressure 171/89 171/89 183/95 O2 Sat by Pulse 94 99 96 Oximetry 09/28/16 09/28/16 09/28/16 07:15 07:27 07:30 Temperature Pulse Rate 91 H 87 86 Pulse Rate [ From Monitor] Respiratory 13 18 Rate Blood Pressure 183/95 183/95 184/95 O2 Sat by Pulse 98 98 94 Oximetry 09/28/16 09/28/16 09/28/16 07:41 07:45 08:00 Temperature 98.4 F Pulse Rate 92 H 89 87 Pulse Rate [ 86 From Monitor] Respiratory 26 H 26 H 14 Rate Blood Pressure 184/95 184/95 180/89 O2 Sat by Pulse 97 98 95 Oximetry 09/28/16 09/28/16 09/28/16 08:15 08:31 08:45 Temperature Pulse Rate 87 87 88 Pulse Rate [ From Monitor] Respiratory 15 14 15 Rate Blood Pressure 180/89 180/89 180/89 O2 Sat by Pulse 98 99 99 Oximetry 09/28/16 09/28/16 09/28/16 09:00 09:15 09:31 Temperature Pulse Rate 85 84 84 Pulse Rate [ From Monitor] Respiratory 13 12 15 Rate Blood Pressure 180/89 180/89 175/89 O2 Sat by Pulse 95 99 99 Oximetry 09/28/16 09/28/16 09/28/16 09:45 09:53 09:58 Temperature Pulse Rate 83 86 86 Pulse Rate [ From Monitor] Respiratory 15 Rate Blood Pressure 175/89 175/89 O2 Sat by Pulse 99 Oximetry 09/28/16 09/28/16 09/28/16 10:00 10:15 10:31 Temperature Pulse Rate 85 87 88 Pulse Rate [ From Monitor] Respiratory 15 17 16 Rate Blood Pressure 174/88 174/88 174/88 O2 Sat by Pulse 96 99 99 Oximetry 09/28/16 09/28/16 09/28/16 10:45 11:00 11:15 Temperature Pulse Rate 89 91 H 85 Pulse Rate [ From Monitor] Respiratory 13 19 15 Rate Blood Pressure 174/88 172/79 172/79 O2 Sat by Pulse 100 96 99 Oximetry 09/28/16 09/28/16 09/28/16 11:31 11:45 12:00 Temperature 98.5 F Pulse Rate 87 91 H 87 Pulse Rate [ 87 From Monitor] Respiratory 16 17 16 Rate Blood Pressure 172/79 172/79 177/86 O2 Sat by Pulse 99 99 97 Oximetry 09/28/16 09/28/16 09/28/16 12:15 12:24 12:31 Temperature Pulse Rate 85 86 92 H Pulse Rate [ From Monitor] Respiratory 15 18 15 Rate Blood Pressure 177/86 177/86 177/86 O2 Sat by Pulse 99 99 99 Oximetry 09/28/16 09/28/16 09/28/16 12:45 13:00 13:15 Temperature Pulse Rate 89 85 85 Pulse Rate [ From Monitor] Respiratory 13 14 12 Rate Blood Pressure 177/86 170/83 170/83 O2 Sat by Pulse 99 97 99 Oximetry 09/28/16 09/28/16 09/28/16 13:31 13:45 14:00 Temperature Pulse Rate 86 87 86 Pulse Rate [ From Monitor] Respiratory 14 17 12 Rate Blood Pressure 170/83 170/83 173/82 O2 Sat by Pulse 98 98 95 Oximetry 09/28/16 09/28/16 09/28/16 14:15 14:31 14:45 Temperature Pulse Rate 86 88 83 Pulse Rate [ From Monitor] Respiratory 13 12 12 Rate Blood Pressure 173/82 173/82 173/82 O2 Sat by Pulse 99 98 98 Oximetry 09/28/16 09/28/16 09/28/16 15:00 15:16 15:30 Temperature Pulse Rate 82 84 81 Pulse Rate [ From Monitor] Respiratory 12 12 11 L Rate Blood Pressure 166/87 166/87 166/87 O2 Sat by Pulse 98 99 97 Oximetry 09/28/16 09/28/16 09/28/16 15:46 16:00 16:12 Temperature 98.5 F Pulse Rate 82 80 79 Pulse Rate [ 82 From Monitor] Respiratory 15 13 13 Rate Blood Pressure 166/87 170/86 170/86 O2 Sat by Pulse 98 97 98 Oximetry - Labs 09/28/16 09:39 09/28/16 09:39 Diabetes panel 09/28/16 Range/Units 09:39 Sodium 136 L (137-145) mmol/L Potassium 4.6 D (3.6-5.0) mmol/L Chloride 95.0 L (98-107) mmol/L Carbon Dioxide 26 (22-30) mmol/L BUN 29 H (9-20) mg/dL Creatinine 7.8 H (0.8-1.5) mg/dL Glucose 84 (75-100) mg/dL Calcium 6.6 L (8.4-10.2) mg/dL Calcium panel 09/28/16 Range/Units 09:39 Calcium 6.6 L (8.4-10.2) mg/dL Pituitary panel 09/28/16 Range/Units 09:39 Sodium 136 L (137-145) mmol/L Potassium 4.6 D (3.6-5.0) mmol/L Chloride 95.0 L (98-107) mmol/L Carbon Dioxide 26 (22-30) mmol/L BUN 29 H (9-20) mg/dL Creatinine 7.8 H (0.8-1.5) mg/dL Glucose 84 (75-100) mg/dL Calcium 6.6 L (8.4-10.2) mg/dL Adrenal panel 09/28/16 Range/Units 09:39 Sodium 136 L (137-145) mmol/L Potassium 4.6 D (3.6-5.0) mmol/L Chloride 95.0 L (98-107) mmol/L Carbon Dioxide 26 (22-30) mmol/L BUN 29 H (9-20) mg/dL Creatinine 7.8 H (0.8-1.5) mg/dL Glucose 84 (75-100) mg/dL Calcium 6.6 L (8.4-10.2) mg/dL
[2016-09-28] MEDS: APRESOLINE IV PRN (20:41)
[2016-09-28] MEDS ORDERED: SUBLIMAZE IV ONE (21:53)
[2016-09-29] MEDS: CARDENE DRIP 40 MG/200 ML 40 MG/200 ML BAG IV SCH ×2 (00:35→22:55)
[2016-09-29 04:35] LABS: Hematocrit 33.2 % (35.5-45.6); Hemoglobin 10.7 gm/dl (11.8-15.2); Mean Corpuscular HGB Conc 32 % (32-34); Mean Corpuscular Hemoglobin 29 pg (28-32); Mean Corpuscular Volume 92 fl (84-94); Platelet Count 144 K/mm3 (140-440); Red Blood Count 3.63 M/mm3 (3.65-5.03); Red Cell Distribution Width 14.7 % (13.2-15.2); White Blood Count 4.1 K/mm3 (4.5-11.0)
[2016-09-29 04:59] LABS: BUN/Creatinine Ratio 4.13; Calcium 6.5 mg/dL (8.4-10.2); Chloride 96.3 mmol/L (98-107)
[2016-09-29 05:39] LABS: Anisocytosis 1+; Basophils % (Manual) 0 % (0.0-1.8); Blastocytes % (Manual) 0 %; Eosinophils % (Manual) 0 % (0.0-4.3)
[2016-09-29 05:40] LABS: Diff Status Complete; Platelet Estimate Consistent w Auto
[2016-09-29 05:43] LABS: Potassium 6.2 mmol/L (3.6-5.0)
[2016-09-29] MEDS: DECADRON IV SCH ×4 (08:18→18:58)
--- NOTE | 2016-09-29 09:37 | Progress Note ---
Assessment and Plan Assessment: Neck hematoma s/p evacuation / s/p parathyroidectomy Acute respiratory failure - intubated. Acute blood loss anemia ESRD, on HD - on MWF schedule. HTN Obesity Moderate pulmonary HTN - RVSP 61mmHg on echo 09/26/2016. Tobacco use / cocaine use Plan: Currently stable cardiac status. Cont current medical and supportive management. The patient has been seen in conjunction with Dr. Garrett who agrees with the assessment and plan of care. Subjective Date of service: 09/29/16 Principal diagnosis: neck hematoma, s/p parathyroidectomy Interval history: Pt resting in bed, remains intubated, alert and following commands appropriately. In SR on tele with 1st degree AV block, BPs remain mildly elevated but improving. No family at bedside. Objective Last Vital Signs Temp 98.1 F 09/29/16 09:00 Pulse 87 09/29/16 09:00 Resp 18 09/29/16 09:00 BP 155/77 09/29/16 09:00 Pulse Ox 98 09/29/16 09:00 - Physical Examination General: No Apparent Distress HEENT: Positive: PERRL, EOMI, Normocephaly, Mucus Membranes Moist Neck: Positive: Other (pressure dressing applied to anterior neck; anterior neck swelling noted) Cardiac: Positive: Reg Rate and Rhythm, S1/S2, Systolic Murmur Lungs: Positive: clear to auscultation, Ventilated Respirations Neuro: Positive: Grossly Intact, Cranial Nerve 2-12 Intact Abdomen: Positive: Unremarkable, Soft, Active Bowel Sounds Skin: Positive: Clear, Other (anterior neck swelling ). Negative: Rash Musculoskeletal: No Pain Extremities: Present: upper extr. pulses, lower extr. pulses. Absent: edema - Labs and Meds CBC 09/28/16 09/29/16 Range/Units 09:39 04:03 WBC 5.3 4.1 L (4.5-11.0) K/mm3 RBC 2.45 L 3.63 L (3.65-5.03) M/mm3 Hgb 7.4 L 10.7 L D (11.8-15.2) gm/dl Hct 22.9 L 33.2 L D (35.5-45.6) % Plt Count 158 144 (140-440) K/mm3 Lymph # 0.3 L (1.2-5.4) K/mm3 [place] # 0.6 (0.0-0.8) K/mm3 Eos # 0.8 H (0.0-0.4) K/mm3 Baso # 0.0 (0.0-0.1) K/mm3 Comprehensive Metabolic Panel 09/28/16 09/29/16 Range/Units 09:39 04:03 Sodium 136 L 137 (137-145) mmol/L Potassium 4.6 D 6.2 H* D (3.6-5.0) mmol/L Chloride 95.0 L 96.3 L (98-107) mmol/L Carbon Dioxide 26 21 L (22-30) mmol/L BUN 29 H 38 H (9-20) mg/dL Creatinine 7.8 H 9.2 H (0.8-1.5) mg/dL Glucose 84 116 H (75-100) mg/dL Calcium 6.6 L 6.5 L (8.4-10.2) mg/dL - Imaging and Cardiology EKG: report reviewed Echo: report reviewed (09/26/2016: mild concentric LHV, ER 50 - 55%, mildly dilated LA, impaired relaxation, posterior mitral annular calcification, mild TR , moderate pulmonary HTN, RVSP 61mmHg) - Telemetry EKG Rhythm: 1st Degree HB
--- NOTE | 2016-09-29 10:51 | Progress Note ---
Assessment and Plan Impression: * End stage renal disease on HD MWF * Hematoma s/p parathyroidectomy * Acute respiratory failure secondary to hematoma * Relative hypotension; hx of hypertension * Hyperkalemia * Hypocalcemia s/p parathyroidectomy Plan: * Hemodialysis MWF schedule. UF as tolerated. No heparin * Surgery following - he is s/p hematoma evacuation * Patient is s/p parathyroidectomy. He is NPO. Will start Ca Gluconate gtt * Will give IV calcitriol daily * Adjust Ca bath with dialysis * BMP [id number] * Continue anti HTN medications * Transfusion of pRBC prn * Epogen protocol * Nutrition per primary team Subjective Date of service: 09/29/16 Principal diagnosis: neck hematoma, s/p parathyroidectomy Objective - Vital Signs Vital signs: Vital Signs - 12hr 09/28/16 09/28/16 09/28/16 23:00 23:15 23:30 Temperature Pulse Rate 82 89 80 Pulse Rate [ From Monitor] Respiratory 19 18 18 Rate Blood Pressure 151/76 179/91 157/79 O2 Sat by Pulse 98 96 97 Oximetry O2 Sat by Pulse Oximetry [ Anterior Bilateral Upper Lobe] O2 Sat by Pulse Oximetry [ Bilateral Throughout] 09/28/16 09/28/16 09/29/16 23:39 23:46 00:00 Temperature 99.0 F Pulse Rate 96 H 88 Pulse Rate [ 82 From Monitor] Respiratory 17 18 Rate Blood Pressure 210/102 186/91 O2 Sat by Pulse 96 97 Oximetry O2 Sat by Pulse Oximetry [ Anterior Bilateral Upper Lobe] O2 Sat by Pulse Oximetry [ Bilateral Throughout] 09/29/16 09/29/16 09/29/16 00:04 00:15 00:30 Temperature Pulse Rate 88 89 84 Pulse Rate [ From Monitor] Respiratory 17 18 15 Rate Blood Pressure 186/91 194/92 177/84 O2 Sat by Pulse 98 96 96 Oximetry O2 Sat by Pulse Oximetry [ Anterior Bilateral Upper Lobe] O2 Sat by Pulse Oximetry [ Bilateral Throughout] 09/29/16 09/29/16 09/29/16 00:35 00:45 01:00 Temperature Pulse Rate 86 78 82 Pulse Rate [ From Monitor] Respiratory 17 18 Rate Blood Pressure 194/92 166/83 175/84 O2 Sat by Pulse 98 96 96 Oximetry O2 Sat by Pulse Oximetry [ Anterior Bilateral Upper Lobe] O2 Sat by Pulse Oximetry [ Bilateral Throughout] 09/29/16 09/29/1609/29/17 01:15 01:30 01:46 Temperature Pulse Rate 82 74 92 H Pulse Rate [ From Monitor] Respiratory 18 14 12 Rate Blood Pressure 180/86 175/83 201/112 O2 Sat by Pulse 97 97 96 Oximetry O2 Sat by Pulse Oximetry [ Anterior Bilateral Upper Lobe] O2 Sat by Pulse Oximetry [ Bilateral Throughout] 09/29/16 09/29/16 09/29/16 02:00 02:15 02:30 Temperature Pulse Rate 98 H 92 H 92 H Pulse Rate [ 92 H From Monitor] Respiratory 18 17 17 Rate Blood Pressure 202/98 173/84 172/81 O2 Sat by Pulse 96 95 95 Oximetry O2 Sat by Pulse Oximetry [ Anterior Bilateral Upper Lobe] O2 Sat by Pulse Oximetry [ Bilateral Throughout] 09/29/16 09/29/16 09/29/16 02:46 03:00 03:16 Temperature Pulse Rate 86 82 87 Pulse Rate [ From Monitor] Respiratory 16 18 19 Rate Blood Pressure 141/69 126/64 178/134 O2 Sat by Pulse 93 93 95 Oximetry O2 Sat by Pulse Oximetry [ Anterior Bilateral Upper Lobe] O2 Sat by Pulse Oximetry [ Bilateral Throughout] 09/29/16 09/29/16 09/29/16 03:30 03:45 04:00 Temperature 99.1 F Pulse Rate 90 87 Pulse Rate [ 89 From Monitor] Respiratory 15 9 L Rate Blood Pressure 126/64 168/88 178/134 O2 Sat by Pulse 95 95 97 Oximetry O2 Sat by Pulse Oximetry [ Anterior Bilateral Upper Lobe] O2 Sat by Pulse Oximetry [ Bilateral Throughout] 09/29/16 09/29/16 09/29/16 04:16 04:21 04:30 Temperature Pulse Rate 103 H 95 H 89 Pulse Rate [ From Monitor] Respiratory 16 18 Rate Blood Pressure 195/91 195/91 154/79 O2 Sat by Pulse 94 99 95 Oximetry O2 Sat by Pulse Oximetry [ Anterior Bilateral Upper Lobe] O2 Sat by Pulse Oximetry [ Bilateral Throughout] 09/29/16 09/29/16 09/29/16 04:45 05:00 05:15 Temperature Pulse Rate 95 H 84 82 Pulse Rate [ From Monitor] Respiratory 14 18 17 Rate Blood Pressure 160/94 146/73 142/77 O2 Sat by Pulse 94 95 95 Oximetry O2 Sat by Pulse Oximetry [ Anterior Bilateral Upper Lobe] O2 Sat by Pulse Oximetry [ Bilateral Throughout] 09/29/16 09/29/16 09/29/16 05:30 05:45 06:00 Temperature Pulse Rate 86 78 79 Pulse Rate [ 93 H From Monitor] Respiratory 17 15 15 Rate Blood Pressure 152/76 147/71 153/75 O2 Sat by Pulse 94 94 95 Oximetry O2 Sat by Pulse Oximetry [ Anterior Bilateral Upper Lobe] O2 Sat by Pulse Oximetry [ Bilateral Throughout] 09/29/16 09/29/16 09/29/16 06:16 06:30 06:45 Temperature Pulse Rate 102 H 84 82 Pulse Rate [ From Monitor] Respiratory 13 17 18 Rate Blood Pressure 188/99 188/99 147/72 O2 Sat by Pulse 91 98 96 Oximetry O2 Sat by Pulse Oximetry [ Anterior Bilateral Upper Lobe] O2 Sat by Pulse Oximetry [ Bilateral Throughout] 09/29/16 09/29/16 09/29/16 07:00 07:15 07:24 Temperature Pulse Rate 85 82 97 H Pulse Rate [ From Monitor] Respiratory 15 13 Rate Blood Pressure 144/80 142/71 142/71 O2 Sat by Pulse 96 96 98 Oximetry O2 Sat by Pulse Oximetry [ Anterior Bilateral Upper Lobe] O2 Sat by Pulse Oximetry [ Bilateral Throughout] 09/29/16 09/29/16 09/29/16 07:30 07:46 08:00 Temperature 98.1 F Pulse Rate 82 88 84 Pulse Rate [ From Monitor] Respiratory 14 13 14 Rate Blood Pressure 156/78 164/82 161/76 O2 Sat by Pulse 99 96 96 Oximetry O2 Sat by Pulse Oximetry [ Anterior Bilateral Upper Lobe] O2 Sat by Pulse Oximetry [ Bilateral Throughout] 09/29/16 09/29/16 09/29/16 08:15 08:30 08:45 Temperature Pulse Rate 83 84 88 Pulse Rate [ From Monitor] Respiratory 13 12 15 Rate Blood Pressure 158/76 166/79 155/77 O2 Sat by Pulse 96 96 96 Oximetry O2 Sat by Pulse Oximetry [ Anterior Bilateral Upper Lobe] O2 Sat by Pulse Oximetry [ Bilateral Throughout] 09/29/16 09/29/16 09/29/16 09:00 09:15 09:30 Temperature 98.1 F Pulse Rate 84 84 84 Pulse Rate [ From Monitor] Respiratory 14 13 13 Rate Blood Pressure 149/78 155/75 151/75 O2 Sat by Pulse 98 98 97 Oximetry O2 Sat by Pulse 98 Oximetry [ Anterior Bilateral Upper Lobe] O2 Sat by Pulse 98 Oximetry [ Bilateral Throughout] 09/29/16 09/29/16 09/29/16 09:45 10:00 10:15 Temperature Pulse Rate 90 87 87 Pulse Rate [ From Monitor] Respiratory Rate Blood Pressure 156/79 158/75 164/78 O2 Sat by Pulse Oximetry O2 Sat by Pulse Oximetry [ Anterior Bilateral Upper Lobe] O2 Sat by Pulse Oximetry [ Bilateral Throughout] 09/29/16 10:30 Temperature Pulse Rate 86 Pulse Rate [ From Monitor] Respiratory Rate Blood Pressure 164/78 O2 Sat by Pulse Oximetry O2 Sat by Pulse Oximetry [ Anterior Bilateral Upper Lobe] O2 Sat by Pulse Oximetry [ Bilateral Throughout] - General Appearance General appearance: intubated EENT: ATNC Respiratory: Present: Clear to Ascultation Cardiology: regular, S1S2 Gastrointestinal: normal, no tenderness, no distended Integumentary: no rash Musculoskeletal: other (no edema) - Lab 09/29/16 04:03 09/29/16 04:03 Most recent lab results Calcium 6.5 mg/dL (8.4-10.2) L 09/29/16 04:03
[2016-09-29] MEDS ORDERED: CALCIUM GLUCONATE 2,000 MG in NACL 0.9% 100 ML IV ONE (11:00)
--- NOTE | 2016-09-29 11:31 | XRay Report ---
AP chest x-ray. Findings: Since yesterday's study, there has been resolution of the small infiltrate in the left perihilar region. There are no other significant interval changes. Cardiomegaly with mild vascular congestion persists. The the endotracheal tube is in satisfactory position. Impression: Resolution of small left perihilar infiltrate.
[2016-09-29] MEDS ORDERED: PNEUMOVAX 23 IM ONE (12:00)
[2016-09-29] MEDS ORDERED: FLUARIX QUAD 2016-2017(36 MOS+) IM ONE (12:00)
--- NOTE | 2016-09-29 13:28 | Progress Note ---
Subjective Narrative: stable VS igns wound clean adi out , K 6.3 . on HDialysis . still entubated , will cont same . Objective Vital Signs - 12hr 09/29/16 09/29/16 09/29/16 01:30 01:46 02:00 Temperature Pulse Rate 74 92 H 98 H Pulse Rate [ 92 H From Monitor] Respiratory 14 12 18 Rate Blood Pressure 175/83 201/112 202/98 O2 Sat by Pulse 97 96 96 Oximetry O2 Sat by Pulse Oximetry [ Anterior Bilateral Upper Lobe] O2 Sat by Pulse Oximetry [ Bilateral Throughout] 09/29/16 09/29/16 09/29/16 02:15 02:30 02:46 Temperature Pulse Rate 92 H 92 H 86 Pulse Rate [ From Monitor] Respiratory 17 17 16 Rate Blood Pressure 173/84 172/81 141/69 O2 Sat by Pulse 95 95 93 Oximetry O2 Sat by Pulse Oximetry [ Anterior Bilateral Upper Lobe] O2 Sat by Pulse Oximetry [ Bilateral Throughout] 09/29/16 09/29/16 09/29/16 03:00 03:16 03:30 Temperature Pulse Rate 82 87 Pulse Rate [ From Monitor] Respiratory 18 19 Rate Blood Pressure 126/64 178/134 126/64 O2 Sat by Pulse 93 95 95 Oximetry O2 Sat by Pulse Oximetry [ Anterior Bilateral Upper Lobe] O2 Sat by Pulse Oximetry [ Bilateral Throughout] 09/29/16 09/29/16 09/29/16 03:45 04:00 04:16 Temperature 99.1 F Pulse Rate 90 87 103 H Pulse Rate [ 89 From Monitor] Respiratory 15 9 L 16 Rate Blood Pressure 168/88 178/134 195/91 O2 Sat by Pulse 95 97 94 Oximetry O2 Sat by Pulse Oximetry [ Anterior Bilateral Upper Lobe] O2 Sat by Pulse Oximetry [ Bilateral Throughout] 09/29/16 09/29/16 09/29/16 04:21 04:30 04:45 Temperature Pulse Rate 95 H 89 95 H Pulse Rate [ From Monitor] Respiratory 18 14 Rate Blood Pressure 195/91 154/79 160/94 O2 Sat by Pulse 99 95 94 Oximetry O2 Sat by Pulse Oximetry [ Anterior Bilateral Upper Lobe] O2 Sat by Pulse Oximetry [ Bilateral Throughout] 09/29/16 09/29/16 09/29/16 05:00 05:15 05:30 Temperature Pulse Rate 84 82 86 Pulse Rate [ From Monitor] Respiratory 18 17 17 Rate Blood Pressure 146/73 142/77 152/76 O2 Sat by Pulse 95 95 94 Oximetry O2 Sat by Pulse Oximetry [ Anterior Bilateral Upper Lobe] O2 Sat by Pulse Oximetry [ Bilateral Throughout] 09/29/16 09/29/16 09/29/16 05:45 06:00 06:16 Temperature Pulse Rate 78 79 102 H Pulse Rate [ 93 H From Monitor] Respiratory 15 15 13 Rate Blood Pressure 147/71 153/75 188/99 O2 Sat by Pulse 94 95 91 Oximetry O2 Sat by Pulse Oximetry [ Anterior Bilateral Upper Lobe] O2 Sat by Pulse Oximetry [ Bilateral Throughout] 09/29/16 09/29/16 09/29/16 06:30 06:45 07:00 Temperature Pulse Rate 84 82 85 Pulse Rate [ From Monitor] Respiratory 17 18 15 Rate Blood Pressure 188/99 147/72 144/80 O2 Sat by Pulse 98 96 96 Oximetry O2 Sat by Pulse Oximetry [ Anterior Bilateral Upper Lobe] O2 Sat by Pulse Oximetry [ Bilateral Throughout] 09/29/16 09/29/16 09/29/16 07:15 07:24 07:30 Temperature Pulse Rate 82 97 H 82 Pulse Rate [ From Monitor] Respiratory 13 14 Rate Blood Pressure 142/71 142/71 156/78 O2 Sat by Pulse 96 98 99 Oximetry O2 Sat by Pulse Oximetry [ Anterior Bilateral Upper Lobe] O2 Sat by Pulse Oximetry [ Bilateral Throughout] 09/29/16 09/29/16 09/29/16 07:46 08:00 08:15 Temperature 98.1 F Pulse Rate 88 84 83 Pulse Rate [ From Monitor] Respiratory 13 14 13 Rate Blood Pressure 164/82 161/76 158/76 O2 Sat by Pulse 96 96 96 Oximetry O2 Sat by Pulse Oximetry [ Anterior Bilateral Upper Lobe] O2 Sat by Pulse Oximetry [ Bilateral Throughout] 09/29/16 09/29/16 09/29/16 08:30 08:45 09:00 Temperature 98.1 F Pulse Rate 84 88 84 Pulse Rate [ From Monitor] Respiratory 12 15 14 Rate Blood Pressure 166/79 155/77 149/78 O2 Sat by Pulse 96 96 98 Oximetry O2 Sat by Pulse 98 Oximetry [ Anterior Bilateral Upper Lobe] O2 Sat by Pulse 98 Oximetry [ Bilateral Throughout] 09/29/16 09/29/16 09/29/16 09:15 09:30 09:45 Temperature Pulse Rate 84 84 90 Pulse Rate [ From Monitor] Respiratory 13 13 Rate Blood Pressure 155/75 151/75 156/79 O2 Sat by Pulse 98 97 Oximetry O2 Sat by Pulse Oximetry [ Anterior Bilateral Upper Lobe] O2 Sat by Pulse Oximetry [ Bilateral Throughout] 09/29/16 09/29/16 09/29/16 10:00 10:15 10:30 Temperature Pulse Rate 87 87 86 Pulse Rate [ From Monitor] Respiratory Rate Blood Pressure 158/75 164/78 164/78 O2 Sat by Pulse Oximetry O2 Sat by Pulse Oximetry [ Anterior Bilateral Upper Lobe] O2 Sat by Pulse Oximetry [ Bilateral Throughout] 09/29/16 09/29/16 09/29/16 10:45 11:00 11:15 Temperature Pulse Rate 90 89 91 H Pulse Rate [ From Monitor] Respiratory Rate Blood Pressure 160/87 160/87 168/80 O2 Sat by Pulse Oximetry O2 Sat by Pulse Oximetry [ Anterior Bilateral Upper Lobe] O2 Sat by Pulse Oximetry [ Bilateral Throughout] 09/29/16 09/29/16 09/29/16 11:30 11:45 11:49 Temperature Pulse Rate 102 H 107 H 99 H Pulse Rate [ From Monitor] Respiratory Rate Blood Pressure 143/89 150/80 150/90 O2 Sat by Pulse 99 Oximetry O2 Sat by Pulse Oximetry [ Anterior Bilateral Upper Lobe] O2 Sat by Pulse Oximetry [ Bilateral Throughout] 09/29/16 09/29/16 09/29/16 12:00 12:15 12:30 Temperature Pulse Rate 100 H 98 H 94 H Pulse Rate [ From Monitor] Respiratory Rate Blood Pressure 147/88 129/84 169/84 O2 Sat by Pulse Oximetry O2 Sat by Pulse Oximetry [ Anterior Bilateral Upper Lobe] O2 Sat by Pulse Oximetry [ Bilateral Throughout] 09/29/16 12:45 Temperature 98.3 F Pulse Rate 89 Pulse Rate [ From Monitor] Respiratory 18 Rate Blood Pressure 163/76 O2 Sat by Pulse Oximetry O2 Sat by Pulse Oximetry [ Anterior Bilateral Upper Lobe] O2 Sat by Pulse Oximetry [ Bilateral Throughout] - Labs 09/29/16 04:03 09/29/16 04:03 Diabetes panel 09/29/16 Range/Units 04:03 Sodium 137 (137-145) mmol/L Potassium 6.2 H* D (3.6-5.0) mmol/L Chloride 96.3 L (98-107) mmol/L Carbon Dioxide 21 L (22-30) mmol/L BUN 38 H (9-20) mg/dL Creatinine 9.2 H (0.8-1.5) mg/dL Glucose 116 H (75-100) mg/dL Calcium 6.5 L (8.4-10.2) mg/dL Calcium panel 09/29/16 Range/Units 04:03 Calcium 6.5 L (8.4-10.2) mg/dL Pituitary panel 09/29/16 Range/Units 04:03 Sodium 137 (137-145) mmol/L Potassium 6.2 H* D (3.6-5.0) mmol/L Chloride 96.3 L (98-107) mmol/L Carbon Dioxide 21 L (22-30) mmol/L BUN 38 H (9-20) mg/dL Creatinine 9.2 H (0.8-1.5) mg/dL Glucose 116 H (75-100) mg/dL Calcium 6.5 L (8.4-10.2) mg/dL Adrenal panel 09/29/16 Range/Units 04:03 Sodium 137 (137-145) mmol/L Potassium 6.2 H* D (3.6-5.0) mmol/L Chloride 96.3 L (98-107) mmol/L Carbon Dioxide 21 L (22-30) mmol/L BUN 38 H (9-20) mg/dL Creatinine 9.2 H (0.8-1.5) mg/dL Glucose 116 H (75-100) mg/dL Calcium 6.5 L (8.4-10.2) mg/dL
--- NOTE | 2016-09-29 13:39 | Progress Note ---
Assessment and Plan Imp: 1. Neck hematoma s/p evacuation; cytology showed acute inflammation/blood 2. Acute respiratory failure, hypoxia 3. Cocaine abuse 4. ESRD 5. Pulm HTN, suspect 2/2 #'s 2, 3, and chronic diastolic CHF; can screen for ESTEFANI and other pulm issues once extubated Rec: 1. Cont. PSV; complete Decadron x 4 doses; + audible cuff leak today but tidal volumes did not drop appropriately with cuff down; will leave intubated 24 more hours and repeat cuff leak in AM; hopeful extubation in AM 2. Monitor H/H -> transfuse if less than 7.0/21.0 3. SCDs 4. D/c cocaine 5. Obtain better history after extubation; re: pulm HTN consider RHC at some point 6. Recommend DHT for TFs and PO BP meds 7. Wean off Cardene drip 8. Further plans pending clinical course CCT 31 minutes D/w RN, RT on rounds; no family present Subjective Date of service: 09/29/16 Principal diagnosis: neck hematoma, s/p parathyroidectomy Interval history: Had elevated BP last PM, did not respond to PRN Hydralazine and beta-blockers contraindicated due to cocaine use, so has been on Cardene drip. Currently receiving HD. Awake, alert. On PSV 10/5 and tolerating well. Active Medications Lipase/Protease/Amylase (Pancreaze Dr 10,500 Unit) 1 each FEEDTUBE PRN PRN PRN Reason: For Clogged Feeding Tube Calcitriol (Calcijex) 1 mcg IV DAILY HALEY Dexamethasone (Decadron) 4 mg IV Q6H HALEY Stop: 09/29/16 18:01 Famotidine (Pepcid) 20 mg IV DAILY HALEY Last Admin: 09/28/16 09:54 Dose: 20 mg Fentanyl (Sublimaze) 50 mcg IV Q3H PRN PRN Reason: Pain Hydralazine HCl (Apresoline) 20 mg IV Q6H PRN PRN Reason: Hypertension Last Admin: 09/28/16 20:41 Dose: 20 mg Hydrophilic Ointment (Vaseline Lip Therapy) 1 applic TP Q2HR PRN PRN Reason: Dry Lips Propofol (Diprivan 10 Mg/Ml) 1,000 mg in 100 mls @ 2.994 mls/hr IV TITR HALEY; 5 MCG/KG/MIN PRN Reason: Protocol Last Titration: 09/28/16 07:15 Dose: 0 mcg/kg/min, 0 mls/hr Fentanyl Citrate (Fentanyl Drip Premix) 2,000 mcg in 100 mls @ 4.99 mls/hr IV TITR HALEY; 1 MCG/KG/HR PRN Reason: Protocol Last Titration: 09/28/16 07:17 Dose: Infused Sodium Chloride (Nacl 0.9%) 100 mls @ 999 mls/hr IV RITIKA PRN PRN Reason: Hypotension Dextrose/Sodium Chloride (D5ns) 1,000 mls @ 50 mls/hr IV DIRECT HALEY Last Admin: 09/28/16 08:02 Dose: 50 mls/hr Nicardipine/Sodium Chloride (Cardene Drip 40 Mg/200 Ml) 40 mg in 200 mls @ 25 mls/hr IV TITR HALEY; 5 MG/HR PRN Reason: Protocol Last Titration: 09/29/16 04:00 Dose: 6 mg/hr, 30 mls/hr Calcium Gluconate 12,000 mg/ (Sodium Chloride) 1,120 mls @ 30 mls/hr IV DIRECT HALEY Multi-Ingred Cream/Lotion/Oil/Oint (Artificial Tears Ophth Oint) 1 applic OU Q4HR PRN PRN Reason: Dry Eye(s) Last Admin: 09/27/16 09:05 Dose: 1 applic Simple Syrup (Simple Syrup) 15 ml FEEDTUBE PRN PRN PRN Reason: Hypoglycemia Simple Syrup (Simple Syrup) 30 ml FEEDTUBE PRN PRN PRN Reason: Hypoglycemia Sodium Bicarbonate (Sodium Bicarbonate) 325 mg FEEDTUBE PRN PRN PRN Reason: For Clogged Feeding Tube Objective Vital Signs - 12hr 09/29/16 09/29/16 09/29/16 01:46 02:00 02:15 Temperature Pulse Rate 92 H 98 H 92 H Pulse Rate [ 92 H From Monitor] Respiratory 12 18 17 Rate Blood Pressure 201/112 202/98 173/84 O2 Sat by Pulse 96 96 95 Oximetry O2 Sat by Pulse Oximetry [ Anterior Bilateral Upper Lobe] O2 Sat by Pulse Oximetry [ Bilateral Throughout] 09/29/16 09/29/16 09/29/16 02:30 02:46 03:00 Temperature Pulse Rate 92 H 86 82 Pulse Rate [ From Monitor] Respiratory 17 16 18 Rate Blood Pressure 172/81 141/69 126/64 O2 Sat by Pulse 95 93 93 Oximetry O2 Sat by Pulse Oximetry [ Anterior Bilateral Upper Lobe] O2 Sat by Pulse Oximetry [ Bilateral Throughout] 09/29/16 09/29/16 09/29/16 03:16 03:30 03:45 Temperature Pulse Rate 87 90 Pulse Rate [ From Monitor] Respiratory 19 15 Rate Blood Pressure 178/134 126/64 168/88 O2 Sat by Pulse 95 95 95 Oximetry O2 Sat by Pulse Oximetry [ Anterior Bilateral Upper Lobe] O2 Sat by Pulse Oximetry [ Bilateral Throughout] 09/29/16 09/29/16 09/29/16 04:00 04:16 04:21 Temperature 99.1 F Pulse Rate 87 103 H 95 H Pulse Rate [ 89 From Monitor] Respiratory 9 L 16 Rate Blood Pressure 178/134 195/91 195/91 O2 Sat by Pulse 97 94 99 Oximetry O2 Sat by Pulse Oximetry [ Anterior Bilateral Upper Lobe] O2 Sat by Pulse Oximetry [ Bilateral Throughout] 09/29/16 09/29/16 09/29/16 04:30 04:45 05:00 Temperature Pulse Rate 89 95 H 84 Pulse Rate [ From Monitor] Respiratory 18 14 18 Rate Blood Pressure 154/79 160/94 146/73 O2 Sat by Pulse 95 94 95 Oximetry O2 Sat by Pulse Oximetry [ Anterior Bilateral Upper Lobe] O2 Sat by Pulse Oximetry [ Bilateral Throughout] 09/29/16 09/29/16 09/29/16 05:15 05:30 05:45 Temperature Pulse Rate 82 86 78 Pulse Rate [ From Monitor] Respiratory 17 17 15 Rate Blood Pressure 142/77 152/76 147/71 O2 Sat by Pulse 95 94 94 Oximetry O2 Sat by Pulse Oximetry [ Anterior Bilateral Upper Lobe] O2 Sat by Pulse Oximetry [ Bilateral Throughout] 09/29/16 09/29/16 09/29/16 06:00 06:16 06:30 Temperature Pulse Rate 79 102 H 84 Pulse Rate [ 93 H From Monitor] Respiratory 15 13 17 Rate Blood Pressure 153/75 188/99 188/99 O2 Sat by Pulse 95 91 98 Oximetry O2 Sat by Pulse Oximetry [ Anterior Bilateral Upper Lobe] O2 Sat by Pulse Oximetry [ Bilateral Throughout] 09/29/16 09/29/16 09/29/16 06:45 07:00 07:15 Temperature Pulse Rate 82 85 82 Pulse Rate [ From Monitor] Respiratory 18 15 13 Rate Blood Pressure 147/72 144/80 142/71 O2 Sat by Pulse 96 96 96 Oximetry O2 Sat by Pulse Oximetry [ Anterior Bilateral Upper Lobe] O2 Sat by Pulse Oximetry [ Bilateral Throughout] 09/29/16 09/29/16 09/29/16 07:24 07:30 07:46 Temperature Pulse Rate 97 H 82 88 Pulse Rate [ From Monitor] Respiratory 14 13 Rate Blood Pressure 142/71 156/78 164/82 O2 Sat by Pulse 98 99 96 Oximetry O2 Sat by Pulse Oximetry [ Anterior Bilateral Upper Lobe] O2 Sat by Pulse Oximetry [ Bilateral Throughout] 09/29/16 09/29/16 09/29/16 08:00 08:15 08:30 Temperature 98.1 F Pulse Rate 84 83 84 Pulse Rate [ From Monitor] Respiratory 14 13 12 Rate Blood Pressure 161/76 158/76 166/79 O2 Sat by Pulse 96 96 96 Oximetry O2 Sat by Pulse Oximetry [ Anterior Bilateral Upper Lobe] O2 Sat by Pulse Oximetry [ Bilateral Throughout] 09/29/16 09/29/16 09/29/16 08:45 09:00 09:15 Temperature 98.1 F Pulse Rate 88 84 84 Pulse Rate [ From Monitor] Respiratory 15 14 13 Rate Blood Pressure 155/77 149/78 155/75 O2 Sat by Pulse 96 98 98 Oximetry O2 Sat by Pulse 98 Oximetry [ Anterior Bilateral Upper Lobe] O2 Sat by Pulse 98 Oximetry [ Bilateral Throughout] 09/29/16 09/29/16 09/29/16 09:30 09:45 10:00 Temperature Pulse Rate 84 90 87 Pulse Rate [ From Monitor] Respiratory 13 Rate Blood Pressure 151/75 156/79 158/75 O2 Sat by Pulse 97 Oximetry O2 Sat by Pulse Oximetry [ Anterior Bilateral Upper Lobe] O2 Sat by Pulse Oximetry [ Bilateral Throughout] 09/29/16 09/29/16 09/29/16 10:15 10:30 10:45 Temperature Pulse Rate 87 86 90 Pulse Rate [ From Monitor] Respiratory Rate Blood Pressure 164/78 164/78 160/87 O2 Sat by Pulse Oximetry O2 Sat by Pulse Oximetry [ Anterior Bilateral Upper Lobe] O2 Sat by Pulse Oximetry [ Bilateral Throughout] 09/29/16 09/29/16 09/29/16 11:00 11:15 11:30 Temperature Pulse Rate 89 91 H 102 H Pulse Rate [ From Monitor] Respiratory Rate Blood Pressure 160/87 168/80 143/89 O2 Sat by Pulse Oximetry O2 Sat by Pulse Oximetry [ Anterior Bilateral Upper Lobe] O2 Sat by Pulse Oximetry [ Bilateral Throughout] 09/29/16 09/29/16 09/29/16 11:45 11:49 12:00 Temperature Pulse Rate 107 H 99 H 100 H Pulse Rate [ From Monitor] Respiratory Rate Blood Pressure 150/80 150/90 147/88 O2 Sat by Pulse 99 Oximetry O2 Sat by Pulse Oximetry [ Anterior Bilateral Upper Lobe] O2 Sat by Pulse Oximetry [ Bilateral Throughout] 09/29/16 09/29/16 09/29/16 12:15 12:30 12:45 Temperature 98.3 F Pulse Rate 98 H 94 H 89 Pulse Rate [ From Monitor] Respiratory 18 Rate Blood Pressure 129/84 169/84 163/76 O2 Sat by Pulse Oximetry O2 Sat by Pulse Oximetry [ Anterior Bilateral Upper Lobe] O2 Sat by Pulse Oximetry [ Bilateral Throughout] Constitutional: alert, other (critically ill on ventilator) Eyes: non-icteric ENT: oropharynx moist Neck: other (pressure dressing in place, neck swelling throughout) Ascultation: Bilateral: other (coarse equal BS bilaterally) Cardiovascular: regular rate and rhythm (no mrg) Gastrointestinal: normoactive bowel sounds, soft, non-tender, non-distended Integumentary: normal Extremities: no cyanosis, no edema, pink and warm Neurologic: normal mental status, non-focal exam, pupils equal and round, CN II- XII normal Psychiatric: mood appropriate, affect normal CBC and BMP: 09/29/16 04:03 09/29/16 04:03 ABG, PT/INR, D-dimer: ABG POC ABG pH 7.272 (7.35-7.45) L 09/27/16 04:06 POC ABG pCO2 53.8 (35-45) H 09/27/16 04:06 POC ABG pO2 112 (80-105) H 09/27/16 04:06 POC ABG HCO3 24.8 09/27/16 04:06 POC ABG Total CO2 26 09/27/16 04:06 POC ABG O2 Sat 98 09/27/16 04:06 PT/INR, D-dimer PT 14.0 Sec. (12.2-14.9) 09/26/16 03:30 INR 1.09 (0.87-1.13) 09/26/16 03:30 Abnormal lab findings: Abnormal Labs 09/26/16 09/26/16 09/26/16 03:30 04:17 05:16 WBC RBC 3.05 L Hgb 9.2 L Hct 28.9 L MCV 95 H RDW 15.7 H Lymph % (Auto) 2.5 L Pope % (Auto) Eos % (Auto) Lymph # 0.2 L Eos # 0.5 H Seg Neutrophils % 86.9 H Seg Neuts % (Manual) Lymphocytes % (Manual) 6.0 L Monocytes % (Manual) 8.0 H Eosinophils % (Manual) 19.0 H Basophils % (Manual) 2.0 H Lymphocytes # (Manual) 0.4 L Eosinophils # (Manual) 1.3 H POC ABG pH POC ABG pCO2 POC ABG pO2 78 L Sodium 134 L Potassium Chloride 91.2 L Carbon Dioxide BUN 38 H Creatinine 8.8 H Glucose POC Glucose Calcium ALT Albumin 09/26/16 09/26/16 09/26/16 08:37 10:51 21:26 WBC 4.3 L RBC 2.72 L Hgb 8.3 L 7.9 L Hct 25.7 L 24.5 L MCV 95 H RDW 15.3 H Lymph % (Auto) Pope % (Auto) Eos % (Auto) Lymph # Eos # Seg Neutrophils % Seg Neuts % (Manual) Lymphocytes % (Manual) Monocytes % (Manual) Eosinophils % (Manual) Basophils % (Manual) Lymphocytes # (Manual) Eosinophils # (Manual) POC ABG pH POC ABG pCO2 POC ABG pO2 Sodium Potassium Chloride Carbon Dioxide BUN Creatinine Glucose POC Glucose 132 H Calcium ALT Albumin 09/27/16 09/27/16 09/27/16 04:06 06:00 06:00 WBC RBC 2.55 L Hgb 7.7 L Hct 24.1 L MCV RDW Lymph % (Auto) 9.0 L Pope % (Auto) 13.5 H Eos % (Auto) 5.0 H Lymph # 0.4 L Eos # Seg Neutrophils % 71.7 H Seg Neuts % (Manual) Lymphocytes % (Manual) Monocytes % (Manual) Eosinophils % (Manual) Basophils % (Manual) Lymphocytes # (Manual) Eosinophils # (Manual) POC ABG pH 7.272 L POC ABG pCO2 53.8 H POC ABG pO2 112 H Sodium 132 L Potassium 6.6 H* D Chloride 91.8 L Carbon Dioxide BUN 52 H Creatinine 10.8 H Glucose POC Glucose Calcium 6.7 L D ALT < 5 L Albumin 3.4 L 09/28/16 09/28/16 09/29/16 09:39 09:39 04:03 WBC 4.1 L RBC 2.45 L 3.63 L Hgb 7.4 L 10.7 L D Hct 22.9 L 33.2 L D MCV RDW Lymph % (Auto) 5.3 L Pope % (Auto) 11.3 H Eos % (Auto) 15.1 H Lymph # 0.3 L Eos # 0.8 H Seg Neutrophils % Seg Neuts % (Manual) 93.0 H Lymphocytes % (Manual) 5.0 L Monocytes % (Manual) Eosinophils % (Manual) Basophils % (Manual) Lymphocytes # (Manual) 0.2 L Eosinophils # (Manual) POC ABG pH POC ABG pCO2 POC ABG pO2 Sodium 136 L Potassium Chloride 95.0 L Carbon Dioxide BUN 29 H Creatinine 7.8 H Glucose POC Glucose Calcium 6.6 L ALT Albumin 09/29/16 04:03 WBC RBC Hgb Hct MCV RDW Lymph % (Auto) Pope % (Auto) Eos % (Auto) Lymph # Eos # Seg Neutrophils % Seg Neuts % (Manual) Lymphocytes % (Manual) Monocytes % (Manual) Eosinophils % (Manual) Basophils % (Manual) Lymphocytes # (Manual) Eosinophils # (Manual) POC ABG pH POC ABG pCO2 POC ABG pO2 Sodium Potassium 6.2 H* D Chloride 96.3 L Carbon Dioxide 21 L BUN 38 H Creatinine 9.2 H Glucose 116 H POC Glucose Calcium 6.5 L ALT Albumin Chest x-ray: report reviewed, image reviewed
[2016-09-29] MEDS: NACL 0.9% IV SCH (14:09)
[2016-09-29] MEDS: CALCIUM GLUCONATE IV SCH (14:09)
[2016-09-29] MEDS: CALCIJEX IV SCH (14:10)
[2016-09-29] MEDS: APRESOLINE IV PRN ×2 (14:41→20:25)
[2016-09-29] MEDS: PEPCID IV SCH (14:41)
[2016-09-29 15:28] LABS: BUN/Creatinine Ratio 3.26; Calcium 7.6 mg/dL (8.4-10.2); Chloride 95.5 mmol/L (98-107); Potassium 3.8 mmol/L (3.6-5.0)
[2016-09-29 19:01] LABS: BUN/Creatinine Ratio 3.09; Calcium 7.8 mg/dL (8.4-10.2); Chloride 94.8 mmol/L (98-107); Potassium 4.2 mmol/L (3.6-5.0)
[2016-09-29] MEDS ORDERED: NACL 0.9 (PRIMING MACHINE ONLY DIALYSIS) MC ONE (19:07)
[2016-09-29] MEDS: SUBLIMAZE IV PRN (20:25)
[2016-09-29] MEDS: ARTIFICIAL TEARS OPHTH OINT OU PRN (23:13)
[2016-09-30 02:35] LABS: BUN/Creatinine Ratio 3.77; Calcium 7.5 mg/dL (8.4-10.2); Chloride 94.9 mmol/L (98-107)
[2016-09-30 02:37] LABS: Potassium 5.2 mmol/L (3.6-5.0)
[2016-09-30] MEDS: SUBLIMAZE IV PRN ×4 (04:15→23:55)
[2016-09-30] MEDS: CARDENE DRIP 40 MG/200 ML 40 MG/200 ML BAG IV SCH ×2 (04:41→16:26)
[2016-09-30 06:04] LABS: ISTAT Base Excess 5; ISTAT HCO3 30.6; ISTAT PCO2 52.5 (35-45); ISTAT PH 7.373 (7.35-7.45); ISTAT PO2 97 (80-105); ISTAT SO2 97; ISTAT TCO2 32
[2016-09-30 07:14] LABS: BUN/Creatinine Ratio 3.8; Calcium 7.8 mg/dL (8.4-10.2); Chloride 95.1 mmol/L (98-107); Potassium 4.5 mmol/L (3.6-5.0)
--- NOTE | 2016-09-30 08:44 | XRay Report ---
PORTABLE CHEST INDICATION: Followup respiratory failure. COMPARISON: Yesterday. FINDINGS: Portable, frontal chest radiograph, 2:26 AM, 09/30/2016 again demonstrates limited inspiration with exaggerated cardiomediastinal silhouette/mild cardiomegaly, aortic knob calcifications, possible pulmonary arterial hypertension, crowded lung markings centrally, endotracheal tube and EKG leads. Right hemidiaphragm may be mildly elevated. Slightly better left retrocardiac penetration, grossly unremarkable. Stable bones. CONCLUSION: Stable to slight radiographic improvement, as described. Thank you for the opportunity to participate in this patient's care.
[2016-09-30] MEDS: PEPCID IV SCH (09:22)
[2016-09-30] MEDS: APRESOLINE IV PRN ×2 (09:22→14:07)
--- NOTE | 2016-09-30 10:03 | Progress Note ---
Assessment and Plan Assessment: Neck hematoma s/p evacuation / s/p parathyroidectomy Acute respiratory failure - intubated. Acute blood loss anemia ESRD, on HD - on MWF schedule. HTN Obesity Moderate pulmonary HTN - RVSP 61mmHg on echo 09/26/2016. Tobacco use / cocaine use Plan: Increase PRN IV hydralazine to 20mg Q4H. For possible extubation today per pulmonary. The patient has been seen in conjunction with Dr. Garrett who agrees with the assessment and plan of care. Subjective Date of service: 09/30/16 Principal diagnosis: neck hematoma, s/p parathyroidectomy Interval history: Pt resting in bed, remains intubated, alert and following commands appropriately. In SR on tele with 1st degree AV block, BPs remain labile. No family at bedside. Objective Last Vital Signs Temp 98.4 F 09/30/16 07:33 Pulse 103 H 09/30/16 07:45 Resp 13 09/30/16 07:45 BP 182/80 09/30/16 09:22 Pulse Ox 98 09/30/16 07:45 - Physical Examination General: No Apparent Distress HEENT: Positive: PERRL, EOMI, Normocephaly, Mucus Membranes Moist Neck: Positive: Other (pressure dressing applied to anterior neck; anterior neck swelling noted) Cardiac: Positive: Reg Rate and Rhythm, S1/S2, Systolic Murmur Lungs: Positive: clear to auscultation, Ventilated Respirations Neuro: Positive: Grossly Intact, Cranial Nerve 2-12 Intact Abdomen: Positive: Unremarkable, Soft, Active Bowel Sounds Skin: Positive: Clear, Other (anterior neck swelling ). Negative: Rash Musculoskeletal: No Pain Extremities: Present: upper extr. pulses, lower extr. pulses. Absent: edema - Labs and Meds Comprehensive Metabolic Panel 09/29/16 09/29/16 09/30/16 Range/Units 14:58 18:00 00:24 Sodium 137 139 139 (137-145) mmol/L Potassium 3.8 D 4.2 5.2 H D (3.6-5.0) mmol/L Chloride 95.5 L 94.8 L 94.9 L (98-107) mmol/L Carbon Dioxide 27 27 21 L (22-30) mmol/L BUN 16 17 23 H (9-20) mg/dL Creatinine 4.9 H 5.5 H 6.1 H (0.8-1.5) mg/dL Glucose 82 106 H 111 H (75-100) mg/dL Calcium 7.6 L D 7.8 L 7.5 L (8.4-10.2) mg/dL 09/30/16 Range/Units 06:46 Sodium 137 (137-145) mmol/L Potassium 4.5 (3.6-5.0) mmol/L Chloride 95.1 L (98-107) mmol/L Carbon Dioxide 26 (22-30) mmol/L BUN 27 H (9-20) mg/dL Creatinine 7.1 H (0.8-1.5) mg/dL Glucose 102 H (75-100) mg/dL Calcium 7.8 L (8.4-10.2) mg/dL - Imaging and Cardiology EKG: report reviewed Echo: report reviewed (09/26/2016: mild concentric LHV, ER 50 - 55%, mildly dilated LA, impaired relaxation, posterior mitral annular calcification, mild TR , moderate pulmonary HTN, RVSP 61mmHg) - Telemetry EKG Rhythm: Sinus Rhythm
[2016-09-30] MEDS: CALCIJEX IV SCH (11:49)
--- NOTE | 2016-09-30 11:53 | Progress Note ---
Assessment and Plan Impression: * End stage renal disease on HD MWF * Hematoma s/p parathyroidectomy * Acute respiratory failure secondary to hematoma * Hypertension * Hyperkalemia * Hypocalcemia s/p parathyroidectomy Plan: * Hemodialysis MWF schedule. UF as tolerated. No heparin * Surgery following - he is s/p hematoma evacuation * Patient is s/p parathyroidectomy. Continue Ca Gluconate gtt and IV calcitriol daily * Adjust Ca bath with dialysis * Cardene gtt per critical care * Transfusion of pRBC prn * Epogen protocol * Nutrition per primary team Subjective Date of service: 09/30/16 Principal diagnosis: neck hematoma, s/p parathyroidectomy Interval history: No acute events Objective - Vital Signs Vital signs: Vital Signs - 12hr 09/30/16 09/30/16 09/30/16 00:00 00:02 00:15 Temperature Pulse Rate 96 H 97 H 97 H Pulse Rate [ 93 H From Monitor] Respiratory 13 13 13 Rate Blood Pressure 160/85 160/85 173/86 O2 Sat by Pulse 99 98 95 Oximetry 09/30/16 09/30/16 09/30/16 00:30 00:45 01:00 Temperature Pulse Rate 98 H 96 H 95 H Pulse Rate [ From Monitor] Respiratory 16 14 14 Rate Blood Pressure 160/85 158/83 163/79 O2 Sat by Pulse 98 96 96 Oximetry 09/30/16 09/30/16 09/30/16 01:15 01:30 01:45 Temperature Pulse Rate 96 H 97 H 99 H Pulse Rate [ From Monitor] Respiratory 14 12 13 Rate Blood Pressure 166/82 166/86 174/82 O2 Sat by Pulse 96 96 96 Oximetry 09/30/16 09/30/16 09/30/16 02:00 02:15 02:30 Temperature Pulse Rate 100 H 102 H 103 H Pulse Rate [ 89 From Monitor] Respiratory 11 L 15 14 Rate Blood Pressure 175/83 182/86 168/87 O2 Sat by Pulse 96 96 95 Oximetry 09/30/16 09/30/16 09/30/16 02:45 03:00 03:16 Temperature Pulse Rate 102 H 101 H 120 H Pulse Rate [ From Monitor] Respiratory 10 L 12 17 Rate Blood Pressure 172/90 169/84 193/91 O2 Sat by Pulse 95 95 94 Oximetry 09/30/16 09/30/16 09/30/16 03:30 03:45 04:00 Temperature Pulse Rate 104 H 103 H 100 H Pulse Rate [ 93 H From Monitor] Respiratory 9 L 8 L 15 Rate Blood Pressure 156/83 161/83 161/83 O2 Sat by Pulse 95 96 99 Oximetry 09/30/16 09/30/16 09/30/16 04:15 04:30 04:40 Temperature Pulse Rate 99 H 95 H 96 H Pulse Rate [ From Monitor] Respiratory 14 11 L 13 Rate Blood Pressure 164/87 164/87 173/89 O2 Sat by Pulse 97 98 99 Oximetry 09/30/16 09/30/16 09/30/16 04:45 05:00 05:15 Temperature Pulse Rate 98 H 96 H 97 H Pulse Rate [ From Monitor] Respiratory 12 10 L 13 Rate Blood Pressure 178/92 177/90 176/86 O2 Sat by Pulse 97 97 98 Oximetry 09/30/16 09/30/16 09/30/16 05:30 05:45 06:00 Temperature Pulse Rate 95 H 101 H 100 H Pulse Rate [ From Monitor] Respiratory 11 L 12 12 Rate Blood Pressure 176/86 158/96 158/96 O2 Sat by Pulse 99 99 98 Oximetry 09/30/16 09/30/16 09/30/16 06:15 06:30 06:46 Temperature Pulse Rate 101 H 100 H 102 H Pulse Rate [ From Monitor] Respiratory 16 16 15 Rate Blood Pressure 167/85 167/85 174/80 O2 Sat by Pulse 99 99 99 Oximetry 09/30/16 09/30/16 09/30/16 07:00 07:15 07:30 Temperature Pulse Rate 101 H 101 H 100 H Pulse Rate [ From Monitor] Respiratory 10 L 11 L 11 L Rate Blood Pressure 174/80 175/89 175/89 O2 Sat by Pulse 98 98 99 Oximetry 09/30/16 09/30/16 09/30/16 07:33 07:37 07:45 Temperature 98.4 F Pulse Rate 98 H 103 H Pulse Rate [ From Monitor] Respiratory 21 13 Rate Blood Pressure 186/87 188/93 O2 Sat by Pulse 98 98 Oximetry 09/30/16 09/30/16 09/30/16 08:00 08:15 08:30 Temperature Pulse Rate 105 H 106 H 103 H Pulse Rate [ From Monitor] Respiratory 15 15 16 Rate Blood Pressure 188/93 192/89 192/89 O2 Sat by Pulse 96 97 98 Oximetry 0409/30/16 09/30/16 08:46 09:00 09:16 Temperature Pulse Rate 102 H 99 H 96 H Pulse Rate [ From Monitor] Respiratory 18 14 14 Rate Blood Pressure 188/87 188/87 188/87 O2 Sat by Pulse 99 100 Oximetry 09/30/16 09/30/16 09/30/16 09:22 09:30 09:45 Temperature Pulse Rate 95 H 96 H Pulse Rate [ From Monitor] Respiratory 11 L 10 L Rate Blood Pressure 182/80 166/92 163/86 O2 Sat by Pulse 99 96 Oximetry 09/30/16 09/30/16 10:00 10:15 Temperature Pulse Rate 96 H 95 H Pulse Rate [ From Monitor] Respiratory 13 12 Rate Blood Pressure 163/86 172/87 O2 Sat by Pulse 100 97 Oximetry - General Appearance General appearance: intubated EENT: ATNC Respiratory: Present: Other (coarse BS) Cardiology: regular, S1S2 Gastrointestinal: normal, no tenderness, no distended Integumentary: warm and dry Musculoskeletal: other (no edema) - Lab 10/01/16 03:58 10/01/16 03:58 Most recent lab results Calcium 7.8 mg/dL (8.4-10.2) L 09/30/16 06:46
--- NOTE | 2016-09-30 13:38 | Progress Note ---
Assessment and Plan Imp: 1. Neck hematoma s/p evacuation; cytology showed acute inflammation/blood 2. Acute respiratory failure, hypoxia 3. Cocaine abuse 4. ESRD 5. Pulm HTN, suspect 2/2 #'s 2, 3, and chronic diastolic CHF; can screen for ESTEFANI and other pulm issues once extubated Rec: 1. Okay to extubate today as meets all criteria (personally did cuff leak test which was positive for large leak) -> done and on f/u he is doing well on NC w/ o SOB or evidence of stridor 2. Monitor H/H -> transfuse if less than 7.0/21.0 3. SCDs 4. D/c cocaine 5. Obtain better history after extubation; re: pulm HTN consider RHC at some point 6. Okay to advance diet and would consider PO anti-hypertensive regimen once tolerating PO; can use IV Hydralazine +/- Cardene drip prn until that point CCT 31 minutes D/w RN, RT on rounds; no family present Subjective Date of service: 09/30/16 Principal diagnosis: neck hematoma, s/p parathyroidectomy Interval history: Had elevated BP last PM, and required cardene again but off this AM. Awake, alert. On PSV 10/5 and tolerating well. Can pull TV > 1 liter. Personally performed cuff leak test -> audible leak + appropriate drop in TVs. Active Medications Lipase/Protease/Amylase (Pancreaze Dr 10,500 Unit) 1 each FEEDTUBE PRN PRN PRN Reason: For Clogged Feeding Tube Calcitriol (Calcijex) 1 mcg IV DAILY [facility] Last Admin: 09/30/16 11:49 Dose: 1 mcg Famotidine (Pepcid) 20 mg IV DAILY [facility] Last Admin: 09/30/16 09:22 Dose: 20 mg Fentanyl (Sublimaze) 50 mcg IV Q3H PRN PRN Reason: Pain Last Admin: 09/30/16 09:22 Dose: 50 mcg Hydralazine HCl (Apresoline) 20 mg IV Q4H PRN PRN Reason: Hypertension Hydrophilic Ointment (Vaseline Lip Therapy) 1 applic TP Q2HR PRN PRN Reason: Dry Lips Propofol (Diprivan 10 Mg/Ml) 1,000 mg in 100 mls @ 2.994 mls/hr IV TITR [facility]; 5 MCG/KG/MIN PRN Reason: Protocol Last Titration: 09/28/16 07:15 Dose: 0 mcg/kg/min, 0 mls/hr Fentanyl Citrate (Fentanyl Drip Premix) 2,000 mcg in 100 mls @ 4.99 mls/hr IV TITR [facility]; 1 MCG/KG/HR PRN Reason: Protocol Last Titration: 09/28/16 07:17 Dose: Infused Sodium Chloride (Nacl 0.9%) 100 mls @ 999 mls/hr IV RITIKA PRN PRN Reason: Hypotension Nicardipine/Sodium Chloride (Cardene Drip 40 Mg/200 Ml) 40 mg in 200 mls @ 25 mls/hr IV TITR [facility]; 5 MG/HR PRN Reason: Protocol Last Titration: 09/30/16 09:20 Dose: 0 mg/hr, 0 mls/hr Calcium Gluconate 12,000 mg/ (Sodium Chloride) 1,120 mls @ 30 mls/hr IV DIRECT [facility] Last Admin: 09/29/16 14:09 Dose: 30 mls/hr Multi-Ingred Cream/Lotion/Oil/Oint (Artificial Tears Ophth Oint) 1 applic OU Q4HR PRN PRN Reason: Dry Eye(s) Last Admin: 09/29/16 23:13 Dose: 1 applic Simple Syrup (Simple Syrup) 15 ml FEEDTUBE PRN PRN PRN Reason: Hypoglycemia Simple Syrup (Simple Syrup) 30 ml FEEDTUBE PRN PRN PRN Reason: Hypoglycemia Sodium Bicarbonate (Sodium Bicarbonate) 325 mg FEEDTUBE PRN PRN PRN Reason: For Clogged Feeding Tube Objective Vital Signs - 12hr 09/30/16 09/30/16 09/30/16 01:45 02:00 02:15 Temperature Pulse Rate 99 H 100 H 102 H Pulse Rate [ 89 From Monitor] Respiratory 13 11 L 15 Rate Blood Pressure 174/82 175/83 182/86 O2 Sat by Pulse 96 96 96 Oximetry 09/30/16 09/30/16 09/30/16 02:30 02:45 03:00 Temperature Pulse Rate 103 H 102 H 101 H Pulse Rate [ From Monitor] Respiratory 14 10 L 12 Rate Blood Pressure 168/87 172/90 169/84 O2 Sat by Pulse 95 95 95 Oximetry 09/30/16 09/30/16 09/30/16 03:16 03:30 03:45 Temperature Pulse Rate 120 H 104 H 103 H Pulse Rate [ From Monitor] Respiratory 17 9 L 8 L Rate Blood Pressure 193/91 156/83 161/83 O2 Sat by Pulse 94 95 96 Oximetry 09/30/16 09/30/16 09/30/16 04:00 04:15 04:30 Temperature Pulse Rate 100 H 99 H 95 H Pulse Rate [ 93 H From Monitor] Respiratory 15 14 11 L Rate Blood Pressure 161/83 164/87 164/87 O2 Sat by Pulse 99 97 98 Oximetry 09/30/16 09/30/16 09/30/16 04:40 04:45 05:00 Temperature Pulse Rate 96 H 98 H 96 H Pulse Rate [ From Monitor] Respiratory 13 12 10 L Rate Blood Pressure 173/89 178/92 177/90 O2 Sat by Pulse 99 97 97 Oximetry 09/30/16 09/30/16 09/30/16 05:15 05:30 05:45 Temperature Pulse Rate 97 H 95 H 101 H Pulse Rate [ From Monitor] Respiratory 13 11 L 12 Rate Blood Pressure 176/86 176/86 158/96 O2 Sat by Pulse 98 99 99 Oximetry 09/30/16 09/30/16 09/30/16 06:00 06:15 06:30 Temperature Pulse Rate 100 H 101 H 100 H Pulse Rate [ From Monitor] Respiratory 12 16 16 Rate Blood Pressure 158/96 167/85 167/85 O2 Sat by Pulse 98 99 99 Oximetry 09/30/16 09/30/16 09/30/16 06:46 07:00 07:15 Temperature Pulse Rate 102 H 101 H 101 H Pulse Rate [ From Monitor] Respiratory 15 10 L 11 L Rate Blood Pressure 174/80 174/80 175/89 O2 Sat by Pulse 99 98 98 Oximetry 09/30/16 09/30/16 09/30/16 07:30 07:33 07:37 Temperature 98.4 F Pulse Rate 100 H 98 H Pulse Rate [ From Monitor] Respiratory 11 L 21 Rate Blood Pressure 175/89 186/87 O2 Sat by Pulse 99 98 Oximetry 09/30/16 09/30/16 09/30/16 07:45 08:00 08:15 Temperature Pulse Rate 103 H 105 H 106 H Pulse Rate [ From Monitor] Respiratory 13 15 15 Rate Blood Pressure 188/93 188/93 192/89 O2 Sat by Pulse 98 96 97 Oximetry 04/06/17 04/06/17 04/06/17 08:30 08:46 09:00 Temperature Pulse Rate 103 H 102 H 99 H Pulse Rate [ From Monitor] Respiratory 16 18 14 Rate Blood Pressure 192/89 188/87 188/87 O2 Sat by Pulse 98 99 Oximetry 09/30/16 09/30/16 09/30/16 09:16 09:22 09:30 Temperature Pulse Rate 96 H 95 H Pulse Rate [ From Monitor] Respiratory 14 11 L Rate Blood Pressure 188/87 182/80 166/92 O2 Sat by Pulse 100 99 Oximetry 09/30/16 09/30/16 09/30/16 09:45 10:00 10:15 Temperature Pulse Rate 96 H 96 H 95 H Pulse Rate [ From Monitor] Respiratory 10 L 13 12 Rate Blood Pressure 163/86 163/86 172/87 O2 Sat by Pulse 96 100 97 Oximetry 09/30/16 09/30/16 09/30/16 10:30 10:45 11:00 Temperature Pulse Rate 95 H 91 H 93 H Pulse Rate [ From Monitor] Respiratory 11 L 15 17 Rate Blood Pressure 167/86 161/77 171/72 O2 Sat by Pulse 97 96 97 Oximetry 09/30/16 09/30/16 09/30/16 11:15 11:30 11:45 Temperature Pulse Rate 98 H 96 H 97 H Pulse Rate [ From Monitor] Respiratory 15 13 14 Rate Blood Pressure 180/90 174/85 184/89 O2 Sat by Pulse 97 97 99 Oximetry 09/30/16 09/30/16 09/30/16 11:57 12:00 12:15 Temperature 98.5 F Pulse Rate 95 H 95 H Pulse Rate [ From Monitor] Respiratory 19 15 Rate Blood Pressure 184/89 181/88 O2 Sat by Pulse 99 97 Oximetry 09/30/16 09/30/16 12:30 12:36 Temperature Pulse Rate 99 H Pulse Rate [ From Monitor] Respiratory 18 Rate Blood Pressure 181/88 O2 Sat by Pulse 98 93 Oximetry Constitutional: alert, other (critically ill on ventilator) Eyes: non-icteric ENT: oropharynx moist Neck: other (pressure dressing in place, neck swelling throughout which has improved) Ascultation: Bilateral: other (coarse equal BS bilaterally) Cardiovascular: regular rate and rhythm (no mrg) Gastrointestinal: normoactive bowel sounds, soft, non-tender, non-distended Integumentary: normal Extremities: no cyanosis, no edema, pink and warm Neurologic: normal mental status, non-focal exam, pupils equal and round, CN II- XII normal Psychiatric: mood appropriate, affect normal CBC and BMP: 09/29/16 04:03 09/30/16 06:46 ABG, PT/INR, D-dimer: ABG POC ABG pH 7.373 (7.35-7.45) 09/30/16 04:50 POC ABG pCO2 52.5 (35-45) H 09/30/16 04:50 POC ABG pO2 97 (80-105) 09/30/16 04:50 POC ABG HCO3 30.6 09/30/16 04:50 POC ABG Total CO2 32 09/30/16 04:50 POC ABG O2 Sat 97 09/30/16 04:50 PT/INR, D-dimer PT 14.0 Sec. (12.2-14.9) 09/26/16 03:30 INR 1.09 (0.87-1.13) 09/26/16 03:30 Abnormal lab findings: Abnormal Labs 09/26/16 09/26/16 09/26/16 03:30 04:17 05:16 WBC RBC 3.05 L Hgb 9.2 L Hct 28.9 L MCV 95 H RDW 15.7 H Lymph % (Auto) 2.5 L Bibb % (Auto) Eos % (Auto) Lymph # 0.2 L Eos # 0.5 H Seg Neutrophils % 86.9 H Seg Neuts % (Manual) Lymphocytes % (Manual) 6.0 L Monocytes % (Manual) 8.0 H Eosinophils % (Manual) 19.0 H Basophils % (Manual) 2.0 H Lymphocytes # (Manual) 0.4 L Eosinophils # (Manual) 1.3 H POC ABG pH POC ABG pCO2 POC ABG pO2 78 L Sodium 134 L Potassium Chloride 91.2 L Carbon Dioxide BUN 38 H Creatinine 8.8 H Glucose POC Glucose Calcium ALT Albumin 09/26/16 09/26/16 09/26/16 08:37 10:51 21:26 WBC 4.3 L RBC 2.72 L Hgb 8.3 L 7.9 L Hct 25.7 L 24.5 L MCV 95 H RDW 15.3 H Lymph % (Auto) Bibb % (Auto) Eos % (Auto) Lymph # Eos # Seg Neutrophils % Seg Neuts % (Manual) Lymphocytes % (Manual) Monocytes % (Manual) Eosinophils % (Manual) Basophils % (Manual) Lymphocytes # (Manual) Eosinophils # (Manual) POC ABG pH POC ABG pCO2 POC ABG pO2 Sodium Potassium Chloride Carbon Dioxide BUN Creatinine Glucose POC Glucose 132 H Calcium ALT Albumin 09/27/16 09/27/16 09/27/16 04:06 06:00 06:00 WBC RBC 2.55 L Hgb 7.7 L Hct 24.1 L MCV RDW Lymph % (Auto) 9.0 L Bibb % (Auto) 13.5 H Eos % (Auto) 5.0 H Lymph # 0.4 L Eos # Seg Neutrophils % 71.7 H Seg Neuts % (Manual) Lymphocytes % (Manual) Monocytes % (Manual) Eosinophils % (Manual) Basophils % (Manual) Lymphocytes # (Manual) Eosinophils # (Manual) POC ABG pH 7.272 L POC ABG pCO2 53.8 H POC ABG pO2 112 H Sodium 132 L Potassium 6.6 H* D Chloride 91.8 L Carbon Dioxide BUN 52 H Creatinine 10.8 H Glucose POC Glucose Calcium 6.7 L D ALT < 5 L Albumin 3.4 L 09/28/16 09/28/16 09/29/16 09:39 09:39 04:03 WBC 4.1 L RBC 2.45 L 3.63 L Hgb 7.4 L 10.7 L D Hct 22.9 L 33.2 L D MCV RDW Lymph % (Auto) 5.3 L Bibb % (Auto) 11.3 H Eos % (Auto) 15.1 H Lymph # 0.3 L Eos # 0.8 H Seg Neutrophils % Seg Neuts % (Manual) 93.0 H Lymphocytes % (Manual) 5.0 L Monocytes % (Manual) Eosinophils % (Manual) Basophils % (Manual) Lymphocytes # (Manual) 0.2 L Eosinophils # (Manual) POC ABG pH POC ABG pCO2 POC ABG pO2 Sodium 136 L Potassium Chloride 95.0 L Carbon Dioxide BUN 29 H Creatinine 7.8 H Glucose POC Glucose Calcium 6.6 L ALT Albumin 09/29/16 09/29/16 09/29/16 04:03 14:58 18:00 WBC RBC Hgb Hct MCV RDW Lymph % (Auto) Bibb % (Auto) Eos % (Auto) Lymph # Eos # Seg Neutrophils % Seg Neuts % (Manual) Lymphocytes % (Manual) Monocytes % (Manual) Eosinophils % (Manual) Basophils % (Manual) Lymphocytes # (Manual) Eosinophils # (Manual) POC ABG pH POC ABG pCO2 POC ABG pO2 Sodium Potassium 6.2 H* D Chloride 96.3 L 95.5 L 94.8 L Carbon Dioxide 21 L BUN 38 H Creatinine 9.2 H 4.9 H 5.5 H Glucose 116 H 106 H POC Glucose Calcium 6.5 L 7.6 L D 7.8 L ALT Albumin 09/30/16 09/30/16 09/30/16 00:24 04:50 06:46 WBC RBC Hgb Hct MCV RDW Lymph % (Auto) Bibb % (Auto) Eos % (Auto) Lymph # Eos # Seg Neutrophils % Seg Neuts % (Manual) Lymphocytes % (Manual) Monocytes % (Manual) Eosinophils % (Manual) Basophils % (Manual) Lymphocytes # (Manual) Eosinophils # (Manual) POC ABG pH POC ABG pCO2 52.5 H POC ABG pO2 Sodium Potassium 5.2 H D Chloride 94.9 L 95.1 L Carbon Dioxide 21 L BUN 23 H 27 H Creatinine 6.1 H 7.1 H Glucose 111 H 102 H POC Glucose Calcium 7.5 L 7.8 L ALT Albumin Chest x-ray: report reviewed, image reviewed (no appreciable change; lungs basically clear)
--- NOTE | 2016-09-30 14:03 | Progress Note ---
Subjective Patient Reports: Positive: feels better, pain is less Narrative: doing fine extubated wound OK will start Ice PO Objective Vital Signs - 12hr 09/30/16 09/30/16 09/30/16 02:15 02:30 02:45 Temperature Pulse Rate 102 H 103 H 102 H Pulse Rate [ From Monitor] Respiratory 15 14 10 L Rate Blood Pressure 182/86 168/87 172/90 O2 Sat by Pulse 96 95 95 Oximetry 09/30/16 09/30/16 09/30/16 03:00 03:16 03:30 Temperature Pulse Rate 101 H 120 H 104 H Pulse Rate [ From Monitor] Respiratory 12 17 9 L Rate Blood Pressure 169/84 193/91 156/83 O2 Sat by Pulse 95 94 95 Oximetry 09/30/16 09/30/16 09/30/16 03:45 04:00 04:15 Temperature Pulse Rate 103 H 100 H 99 H Pulse Rate [ 93 H From Monitor] Respiratory 8 L 15 14 Rate Blood Pressure 161/83 161/83 164/87 O2 Sat by Pulse 96 99 97 Oximetry 09/30/16 09/30/16 09/30/16 04:30 04:40 04:45 Temperature Pulse Rate 95 H 96 H 98 H Pulse Rate [ From Monitor] Respiratory 11 L 13 12 Rate Blood Pressure 164/87 173/89 178/92 O2 Sat by Pulse 98 99 97 Oximetry 09/30/16 09/30/16 09/30/16 05:00 05:15 05:30 Temperature Pulse Rate 96 H 97 H 95 H Pulse Rate [ From Monitor] Respiratory 10 L 13 11 L Rate Blood Pressure 177/90 176/86 176/86 O2 Sat by Pulse 97 98 99 Oximetry 09/30/16 09/30/16 09/30/16 05:45 06:00 06:15 Temperature Pulse Rate 101 H 100 H 101 H Pulse Rate [ From Monitor] Respiratory 12 12 16 Rate Blood Pressure 158/96 158/96 167/85 O2 Sat by Pulse 99 98 99 Oximetry 09/30/16 09/30/16 09/30/16 06:30 06:46 07:00 Temperature Pulse Rate 100 H 102 H 101 H Pulse Rate [ From Monitor] Respiratory 16 15 10 L Rate Blood Pressure 167/85 174/80 174/80 O2 Sat by Pulse 99 99 98 Oximetry 09/30/16 09/30/16 09/30/16 07:15 07:30 07:33 Temperature 98.4 F Pulse Rate 101 H 100 H Pulse Rate [ From Monitor] Respiratory 11 L 11 L Rate Blood Pressure 175/89 175/89 O2 Sat by Pulse 98 99 Oximetry 09/30/16 09/30/16 09/30/16 07:37 07:45 08:00 Temperature Pulse Rate 98 H 103 H 105 H Pulse Rate [ From Monitor] Respiratory 21 13 15 Rate Blood Pressure 186/87 188/93 188/93 O2 Sat by Pulse 98 98 96 Oximetry 09/30/16 09/30/16 09/30/16 08:15 08:30 08:46 Temperature Pulse Rate 106 H 103 H 102 H Pulse Rate [ From Monitor] Respiratory 15 16 18 Rate Blood Pressure 192/89 192/89 188/87 O2 Sat by Pulse 97 98 99 Oximetry 09/30/16 09/30/16 09/30/16 09:00 09:16 09:22 Temperature Pulse Rate 99 H 96 H Pulse Rate [ From Monitor] Respiratory 14 14 Rate Blood Pressure 188/87 188/87 182/80 O2 Sat by Pulse 100 Oximetry 09/30/16 09/30/16 09/30/16 09:30 09:45 10:00 Temperature Pulse Rate 95 H 96 H 96 H Pulse Rate [ From Monitor] Respiratory 11 L 10 L 13 Rate Blood Pressure 166/92 163/86 163/86 O2 Sat by Pulse 99 96 100 Oximetry 09/30/16 09/30/16 09/30/16 10:15 10:30 10:45 Temperature Pulse Rate 95 H 95 H 91 H Pulse Rate [ From Monitor] Respiratory 12 11 L 15 Rate Blood Pressure 172/87 167/86 161/77 O2 Sat by Pulse 97 97 96 Oximetry 09/30/16 09/30/16 09/30/16 11:00 11:15 11:30 Temperature Pulse Rate 93 H 98 H 96 H Pulse Rate [ From Monitor] Respiratory 17 15 13 Rate Blood Pressure 171/72 180/90 174/85 O2 Sat by Pulse 97 97 97 Oximetry 09/30/16 09/30/16 09/30/16 11:45 11:57 12:00 Temperature 98.5 F Pulse Rate 97 H 95 H Pulse Rate [ From Monitor] Respiratory 14 19 Rate Blood Pressure 184/89 184/89 O2 Sat by Pulse 99 99 Oximetry 09/30/16 09/30/16 09/30/16 12:15 12:30 12:36 Temperature Pulse Rate 95 H 99 H Pulse Rate [ From Monitor] Respiratory 15 18 Rate Blood Pressure 181/88 181/88 O2 Sat by Pulse 97 98 93 Oximetry 09/30/16 09/30/16 09/30/16 12:45 13:00 13:15 Temperature Pulse Rate 99 H 98 H Pulse Rate [ From Monitor] Respiratory 11 L 12 Rate Blood Pressure 179/90 179/90 179/89 O2 Sat by Pulse 97 99 94 Oximetry 09/30/16 09/30/16 13:30 13:45 Temperature Pulse Rate Pulse Rate [ From Monitor] Respiratory Rate Blood Pressure 180/95 187/91 O2 Sat by Pulse 97 94 Oximetry - Labs 09/29/16 04:03 09/30/16 06:46 Diabetes panel 09/29/16 09/29/16 09/30/16 Range/Units 14:58 18:00 00:24 Sodium 137 139 139 (137-145) mmol/L Potassium 3.8 D 4.2 5.2 H D (3.6-5.0) mmol/L Chloride 95.5 L 94.8 L 94.9 L (98-107) mmol/L Carbon Dioxide 27 27 21 L (22-30) mmol/L BUN 16 17 23 H (9-20) mg/dL Creatinine 4.9 H 5.5 H 6.1 H (0.8-1.5) mg/dL Glucose 82 106 H 111 H (75-100) mg/dL Calcium 7.6 L D 7.8 L 7.5 L (8.4-10.2) mg/dL 09/30/16 Range/Units 06:46 Sodium 137 (137-145) mmol/L Potassium 4.5 (3.6-5.0) mmol/L Chloride 95.1 L (98-107) mmol/L Carbon Dioxide 26 (22-30) mmol/L BUN 27 H (9-20) mg/dL Creatinine 7.1 H (0.8-1.5) mg/dL Glucose 102 H (75-100) mg/dL Calcium 7.8 L (8.4-10.2) mg/dL Calcium panel 09/29/16 09/29/16 09/30/16 Range/Units 14:58 18:00 00:24 Calcium 7.6 L D 7.8 L 7.5 L (8.4-10.2) mg/dL 09/30/16 Range/Units 06:46 Calcium 7.8 L (8.4-10.2) mg/dL Pituitary panel 09/29/16 09/29/16 09/30/16 Range/Units 14:58 18:00 00:24 Sodium 137 139 139 (137-145) mmol/L Potassium 3.8 D 4.2 5.2 H D (3.6-5.0) mmol/L Chloride 95.5 L 94.8 L 94.9 L (98-107) mmol/L Carbon Dioxide 27 27 21 L (22-30) mmol/L BUN 16 17 23 H (9-20) mg/dL Creatinine 4.9 H 5.5 H 6.1 H (0.8-1.5) mg/dL Glucose 82 106 H 111 H (75-100) mg/dL Calcium 7.6 L D 7.8 L 7.5 L (8.4-10.2) mg/dL 09/30/16 Range/Units 06:46 Sodium 137 (137-145) mmol/L Potassium 4.5 (3.6-5.0) mmol/L Chloride 95.1 L (98-107) mmol/L Carbon Dioxide 26 (22-30) mmol/L BUN 27 H (9-20) mg/dL Creatinine 7.1 H (0.8-1.5) mg/dL Glucose 102 H (75-100) mg/dL Calcium 7.8 L (8.4-10.2) mg/dL Adrenal panel 09/29/16 09/29/16 09/30/16 Range/Units 14:58 18:00 00:24 Sodium 137 139 139 (137-145) mmol/L Potassium 3.8 D 4.2 5.2 H D (3.6-5.0) mmol/L Chloride 95.5 L 94.8 L 94.9 L (98-107) mmol/L Carbon Dioxide 27 27 21 L (22-30) mmol/L BUN 16 17 23 H (9-20) mg/dL Creatinine 4.9 H 5.5 H 6.1 H (0.8-1.5) mg/dL Glucose 82 106 H 111 H (75-100) mg/dL Calcium 7.6 L D 7.8 L 7.5 L (8.4-10.2) mg/dL 09/30/16 Range/Units 06:46 Sodium 137 (137-145) mmol/L Potassium 4.5 (3.6-5.0) mmol/L Chloride 95.1 L (98-107) mmol/L Carbon Dioxide 26 (22-30) mmol/L BUN 27 H (9-20) mg/dL Creatinine 7.1 H (0.8-1.5) mg/dL Glucose 102 H (75-100) mg/dL Calcium 7.8 L (8.4-10.2) mg/dL
[2016-09-30] MEDS: HALDOL IV PRN (23:15)
[2016-10-01] MEDS ORDERED: HALDOL ONE
[2016-10-01] MEDS: CARDENE DRIP 40 MG/200 ML 40 MG/200 ML BAG IV SCH ×3 (01:20→21:03)
[2016-10-01 04:54] LABS: Basophils % (Auto) 0.8 % (0.0-1.8); Eosinophils % (Auto) 7.6 % (0.0-4.3); Hematocrit 24.1 % (35.5-45.6); Hemoglobin 7.8 gm/dl (11.8-15.2); Mean Corpuscular HGB Conc 32 % (32-34); Mean Corpuscular Hemoglobin 31 pg (28-32); Mean Corpuscular Volume 94 fl (84-94); Platelet Count 197 K/mm3 (140-440); Red Blood Count 2.56 M/mm3 (3.65-5.03); Red Cell Distribution Width 15.1 % (13.2-15.2); White Blood Count 7.1 K/mm3 (4.5-11.0)
[2016-10-01 05:11] LABS: BUN/Creatinine Ratio 4.18; Calcium 7.7 mg/dL (8.4-10.2); Chloride 97.1 mmol/L (98-107); Potassium 4.2 mmol/L (3.6-5.0)
[2016-10-01] MEDS: NACL 0.9% IV SCH (08:05)
[2016-10-01] MEDS: CALCIUM GLUCONATE IV SCH (08:05)
--- NOTE | 2016-10-01 10:01 | Progress Note ---
Assessment and Plan Assessment: Neck hematoma s/p evacuation / s/p parathyroidectomy Acute respiratory failure - extubated. Acute blood loss anemia ESRD, on HD - on MWF schedule. HTN Obesity Moderate pulmonary HTN - RVSP 61mmHg on echo 09/26/2016. Tobacco use / cocaine use Plan: Initiate PO hydralazine, 100mg PO BID. Wean cardene gtt off for BP <160/100. The patient has been seen in conjunction with Dr. Garrett who agrees with the assessment and plan of care. Subjective Date of service: 10/01/16 Principal diagnosis: neck hematoma, s/p parathyroidectomy Interval history: Pt resting in bed, was extubated yesterday, attempted to leave AMA yesterday evening. Sleeping, groggy. In SR on tele with 1st degree AV block, BPs remain labile, on cardene gtt. No family at bedside. Objective Last Vital Signs Temp 98 F 10/01/16 08:00 Pulse 86 10/01/16 08:15 Resp 17 10/01/16 08:15 BP 168/70 10/01/16 08:15 Pulse Ox 88 10/01/16 08:15 - Physical Examination General: No Apparent Distress HEENT: Positive: PERRL, EOMI, Normocephaly, Mucus Membranes Moist Neck: Positive: Other (pressure dressing applied to anterior neck; anterior neck swelling noted) Cardiac: Positive: Reg Rate and Rhythm, S1/S2, Systolic Murmur Lungs: Positive: Normal Exam, clear to auscultation, Normal Breath Sounds Neuro: Positive: Grossly Intact, Cranial Nerve 2-12 Intact Abdomen: Positive: Unremarkable, Soft, Active Bowel Sounds Skin: Positive: Clear, Other (anterior neck swelling ). Negative: Rash Musculoskeletal: No Pain Extremities: Present: upper extr. pulses, lower extr. pulses. Absent: edema - Labs and Meds CBC 10/01/16 Range/Units 03:58 WBC 7.1 (4.5-11.0) K/mm3 RBC 2.56 L (3.65-5.03) M/mm3 Hgb 7.8 L (11.8-15.2) gm/dl Hct 24.1 L D (35.5-45.6) % Plt Count 197 (140-440) K/mm3 Lymph # 0.5 L (1.2-5.4) K/mm3 [place] # 0.8 (0.0-0.8) K/mm3 Eos # 0.5 H (0.0-0.4) K/mm3 Baso # 0.1 (0.0-0.1) K/mm3 Comprehensive Metabolic Panel 10/01/16 Range/Units 03:58 Sodium 139 (137-145) mmol/L Potassium 4.2 (3.6-5.0) mmol/L Chloride 97.1 L (98-107) mmol/L Carbon Dioxide 24 (22-30) mmol/L BUN 36 H (9-20) mg/dL Creatinine 8.6 H (0.8-1.5) mg/dL Glucose 86 (75-100) mg/dL Calcium 7.7 L (8.4-10.2) mg/dL - Imaging and Cardiology EKG: report reviewed Echo: report reviewed (09/26/2016: mild concentric LHV, ER 50 - 55%, mildly dilated LA, impaired relaxation, posterior mitral annular calcification, mild TR , moderate pulmonary HTN, RVSP 61mmHg) - Telemetry EKG Rhythm: Sinus Rhythm
--- NOTE | 2016-10-01 12:11 | Progress Note ---
Assessment and Plan Impression: * End stage renal disease on HD MWF * Hematoma s/p parathyroidectomy * Acute respiratory failure secondary to hematoma * Hypertension * Hyperkalemia * Hypocalcemia s/p parathyroidectomy Plan: * Hemodialysis MWF schedule. UF as tolerated. No heparin * Surgery following - he is s/p hematoma evacuation * Patient is s/p parathyroidectomy. Continue Ca Gluconate gtt; will start PhosLo TID, Oscal at bedtime; change IV calcitriol to PO * Adjust Ca bath with dialysis * Cardene gtt per critical care; start Amlodipine 10mg daily * Transfusion of pRBC prn * Epogen protocol * Nutrition per primary team Subjective Date of service: 10/01/16 Principal diagnosis: neck hematoma, s/p parathyroidectomy Interval history: Patient is now extubated. Objective - Vital Signs Vital signs: Vital Signs - 12hr 10/01/16 10/01/16 10/01/16 00:16 00:30 00:45 Temperature Pulse Rate 103 H 97 H 95 H Respiratory 20 18 19 Rate Blood Pressure 154/70 143/59 128/89 O2 Sat by Pulse 97 100 Oximetry O2 Sat by Pulse Oximetry [ Bilateral Throughout] 10/01/16 10/01/16 10/01/16 01:00 01:15 01:30 Temperature Pulse Rate 99 H 94 H 95 H Respiratory 16 18 19 Rate Blood Pressure 136/64 132/73 149/79 O2 Sat by Pulse 100 100 56 L Oximetry O2 Sat by Pulse Oximetry [ Bilateral Throughout] 10/01/16 10/01/16 10/01/16 01:45 02:00 02:15 Temperature Pulse Rate 90 93 H 93 H Respiratory 15 17 17 Rate Blood Pressure 137/59 132/72 140/76 O2 Sat by Pulse 87 89 92 Oximetry O2 Sat by Pulse Oximetry [ Bilateral Throughout] 10/01/16 10/01/16 10/01/16 02:30 02:45 03:00 Temperature Pulse Rate 99 H 89 93 H Respiratory 18 16 17 Rate Blood Pressure 133/78 131/71 144/68 O2 Sat by Pulse 84 89 85 Oximetry O2 Sat by Pulse Oximetry [ Bilateral Throughout] 10/01/16 10/01/16 10/01/16 03:15 03:30 03:45 Temperature Pulse Rate 98 H 90 95 H Respiratory 19 17 19 Rate Blood Pressure 148/72 135/61 145/67 O2 Sat by Pulse 79 L 97 96 Oximetry O2 Sat by Pulse Oximetry [ Bilateral Throughout] 10/01/16 10/01/16 10/01/16 04:00 04:16 04:20 Temperature 98.4 F Pulse Rate 93 H 94 H Respiratory 18 18 Rate Blood Pressure 149/58 149/58 O2 Sat by Pulse 95 96 97 Oximetry O2 Sat by Pulse Oximetry [ Bilateral Throughout] 10/01/16 10/01/16 10/01/16 04:21 04:30 04:46 Temperature Pulse Rate 89 92 H Respiratory 18 18 Rate Blood Pressure 149/58 149/58 O2 Sat by Pulse 96 98 95 Oximetry O2 Sat by Pulse Oximetry [ Bilateral Throughout] 10/01/16 10/01/16 10/01/16 05:00 05:16 05:30 Temperature Pulse Rate 95 H 91 H 91 H Respiratory 19 12 15 Rate Blood Pressure 149/58 149/58 149/58 O2 Sat by Pulse 98 95 99 Oximetry O2 Sat by Pulse Oximetry [ Bilateral Throughout] 10/01/16 10/01/16 10/01/16 05:45 05:51 06:00 Temperature Pulse Rate 88 98 H Respiratory 16 19 Rate Blood Pressure 145/68 135/54 O2 Sat by Pulse 100 100 88 Oximetry O2 Sat by Pulse Oximetry [ Bilateral Throughout] 10/01/16 10/01/16 10/01/16 06:15 06:30 06:45 Temperature Pulse Rate 94 H 95 H 85 Respiratory 19 17 13 Rate Blood Pressure 154/67 142/77 156/66 O2 Sat by Pulse 95 100 98 Oximetry O2 Sat by Pulse Oximetry [ Bilateral Throughout] 10/01/16 10/01/16 10/01/16 07:00 07:13 07:14 Temperature Pulse Rate 92 H Respiratory 17 Rate Blood Pressure 156/66 O2 Sat by Pulse 90 94 94 Oximetry O2 Sat by Pulse Oximetry [ Bilateral Throughout] 10/01/16 10/01/16 10/01/16 07:15 07:30 07:46 Temperature Pulse Rate 90 87 88 Respiratory 17 15 17 Rate Blood Pressure 143/74 149/74 147/72 O2 Sat by Pulse 97 91 89 Oximetry O2 Sat by Pulse Oximetry [ Bilateral Throughout] 10/01/16 10/01/16 10/01/16 08:00 08:15 08:30 Temperature 98 F Pulse Rate 86 86 90 Respiratory 16 17 15 Rate Blood Pressure 152/76 168/70 161/72 O2 Sat by Pulse 96 88 78 L Oximetry O2 Sat by Pulse Oximetry [ Bilateral Throughout] 10/01/16 10/01/16 10/01/16 08:45 09:00 09:15 Temperature Pulse Rate 97 H 92 H 89 Respiratory 16 16 16 Rate Blood Pressure 157/77 149/72 147/71 O2 Sat by Pulse 93 98 96 Oximetry O2 Sat by Pulse Oximetry [ Bilateral Throughout] 10/01/16 10/01/16 10/01/16 09:30 09:40 09:45 Temperature 98.0 F Pulse Rate 85 85 86 Respiratory 16 16 14 Rate Blood Pressure 134/74 148/66 148/66 O2 Sat by Pulse 96 96 Oximetry O2 Sat by Pulse 99 Oximetry [ Bilateral Throughout] 10/01/16 10/01/16 10/01/16 10:00 10:15 10:30 Temperature Pulse Rate 88 89 85 Respiratory 15 12 15 Rate Blood Pressure 157/72 154/70 153/75 O2 Sat by Pulse 100 93 98 Oximetry O2 Sat by Pulse Oximetry [ Bilateral Throughout] 10/01/16 10/01/16 10/01/16 10:45 11:00 11:15 Temperature Pulse Rate 86 90 83 Respiratory Rate Blood Pressure 148/73 137/74 174/69 O2 Sat by Pulse Oximetry O2 Sat by Pulse Oximetry [ Bilateral Throughout] 10/01/16 10/01/16 11:30 11:45 Temperature Pulse Rate 82 83 Respiratory Rate Blood Pressure 171/75 165/76 O2 Sat by Pulse Oximetry O2 Sat by Pulse Oximetry [ Bilateral Throughout] - General Appearance General appearance: well-developed, well-nourished EENT: ATNC Respiratory: Present: Clear to Ascultation Cardiology: regular, S1S2 Gastrointestinal: normal, no tenderness, no distended Integumentary: no rash Musculoskeletal: other (no edema) Psychiatric: cooperative - Lab 10/01/16 03:58 10/01/16 03:58 Most recent lab results Calcium 7.7 mg/dL (8.4-10.2) L 10/01/16 03:58
[2016-10-01] MEDS: PEPCID IV SCH (14:03)
[2016-10-01] MEDS: APRESOLINE PO SCH ×2 (14:03→21:05)
--- NOTE | 2016-10-01 14:05 | Progress Note ---
Assessment and Plan Imp: 1. Neck hematoma s/p evacuation; cytology showed acute inflammation/blood 2. Acute respiratory failure, hypoxia 3. Cocaine abuse 4. ESRD 5. Pulm HTN, suspect 2/2 #'s 2, 3, and chronic diastolic CHF; can screen for ESTEFANI and other pulm issues once extubated 6. Delirium versus withdrawal syndrome Rec: 1. On HFNC -> hypoxia may be due to uncontrolled HTN causing pulm vascular congestion; agree w/ starting PO Hydralazine, wean off Cardene, and wean off HFNC today to keep sats 88% or above 2. Monitor H/H -> transfuse if less than 7.0/21.0 3. SCDs 4. D/c cocaine 5. Haldol prn for agitation 6. Getting HD today with volume removal 7. Complex patient/decision-making due to still significant hypoxia D/w RN, RT on rounds; no family present Subjective Date of service: 10/01/16 Principal diagnosis: neck hematoma, s/p parathyroidectomy Interval history: Had elevated BP last PM, and required cardene again but off this AM. Got agitated, threatening to leave AMA last PM, pulling off O2 and desaturating. Now on HFNC. Received Haldol and Fentanyl, now calm/relaxed, somnolent but arousable. No complaints. Active Medications Amlodipine Besylate (Norvasc) 10 mg PO QDAY HALEY Lipase/Protease/Amylase (Pancreaze Dr 10,500 Unit) 1 each FEEDTUBE PRN PRN PRN Reason: For Clogged Feeding Tube Calcitriol (Rocaltrol) 1 mcg PO QDAY HALEY Calcium Acetate (Phoslo) 2,001 mg PO TID HALEY Calcium Carbonate/Glycine (Oscal) 1,250 mg PO QHS [facility] Famotidine (Pepcid) 20 mg IV DAILY HALEY Last Admin: 09/30/16 09:22 Dose: 20 mg Fentanyl (Sublimaze) 50 mcg IV Q3H PRN PRN Reason: Pain Last Admin: 09/30/16 23:55 Dose: 50 mcg Haloperidol Lactate (Haldol) 2 mg IV Q6H PRN PRN Reason: Agitation Last Admin: 09/30/16 23:15 Dose: 2 mg Haloperidol Lactate (Haldol) 2.5 mg IV Q4H PRN PRN Reason: Agitation Hydralazine HCl (Apresoline) 20 mg IV Q4H PRN PRN Reason: Hypertension Last Admin: 09/30/16 14:07 Dose: 20 mg Hydralazine HCl (Apresoline) 100 mg PO BID HALEY Sodium Chloride (Nacl 0.9%) 100 mls @ 999 mls/hr IV RITIKA PRN PRN Reason: Hypotension Nicardipine/Sodium Chloride (Cardene Drip 40 Mg/200 Ml) 40 mg in 200 mls @ 25 mls/hr IV TITR HALEY; 5 MG/HR PRN Reason: Protocol Last Admin: 10/01/16 01:20 Dose: 5 mg/hr, 25 mls/hr Calcium Gluconate 12,000 mg/ (Sodium Chloride) 1,120 mls @ 30 mls/hr IV DIRECT HALEY Last Admin: 09/29/16 14:09 Dose: 30 mls/hr Simple Syrup (Simple Syrup) 15 ml FEEDTUBE PRN PRN PRN Reason: Hypoglycemia Simple Syrup (Simple Syrup) 30 ml FEEDTUBE PRN PRN PRN Reason: Hypoglycemia Sodium Bicarbonate (Sodium Bicarbonate) 325 mg FEEDTUBE PRN PRN PRN Reason: For Clogged Feeding Tube Objective Vital Signs - 12hr 10/01/16 10/01/16 10/01/16 02:15 02:30 02:45 Temperature Pulse Rate 93 H 99 H 89 Respiratory 17 18 16 Rate Blood Pressure 140/76 133/78 131/71 O2 Sat by Pulse 92 84 89 Oximetry O2 Sat by Pulse Oximetry [ Bilateral Throughout] 10/01/16 10/01/16 10/01/16 03:00 03:15 03:30 Temperature Pulse Rate 93 H 98 H 90 Respiratory 17 19 17 Rate Blood Pressure 144/68 148/72 135/61 O2 Sat by Pulse 85 79 L 97 Oximetry O2 Sat by Pulse Oximetry [ Bilateral Throughout] 10/01/16 10/01/16 10/01/16 03:45 04:00 04:16 Temperature 98.4 F Pulse Rate 95 H 93 H 94 H Respiratory 19 18 18 Rate Blood Pressure 145/67 149/58 149/58 O2 Sat by Pulse 96 95 96 Oximetry O2 Sat by Pulse Oximetry [ Bilateral Throughout] 10/01/16 10/01/16 10/01/16 04:20 04:21 04:30 Temperature Pulse Rate 89 Respiratory 18 Rate Blood Pressure 149/58 O2 Sat by Pulse 97 96 98 Oximetry O2 Sat by Pulse Oximetry [ Bilateral Throughout] 10/01/16 10/01/16 10/01/16 04:46 05:00 05:16 Temperature Pulse Rate 92 H 95 H 91 H Respiratory 18 19 12 Rate Blood Pressure 149/58 149/58 149/58 O2 Sat by Pulse 95 98 95 Oximetry O2 Sat by Pulse Oximetry [ Bilateral Throughout] 10/01/16 10/01/16 10/01/16 05:30 05:45 05:51 Temperature Pulse Rate 91 H 88 Respiratory 15 16 Rate Blood Pressure 149/58 145/68 O2 Sat by Pulse 99 100 100 Oximetry O2 Sat by Pulse Oximetry [ Bilateral Throughout] 10/01/16 10/01/16 10/01/16 06:00 06:15 06:30 Temperature Pulse Rate 98 H 94 H 95 H Respiratory 19 19 17 Rate Blood Pressure 135/54 154/67 142/77 O2 Sat by Pulse 88 95 100 Oximetry O2 Sat by Pulse Oximetry [ Bilateral Throughout] 10/01/16 10/01/16 10/01/16 06:45 07:00 07:13 Temperature Pulse Rate 85 92 H Respiratory 13 17 Rate Blood Pressure 156/66 156/66 O2 Sat by Pulse 98 90 94 Oximetry O2 Sat by Pulse Oximetry [ Bilateral Throughout] 10/01/16 10/01/16 10/01/16 07:14 07:15 07:30 Temperature Pulse Rate 90 87 Respiratory 17 15 Rate Blood Pressure 143/74 149/74 O2 Sat by Pulse 94 97 91 Oximetry O2 Sat by Pulse Oximetry [ Bilateral Throughout] 10/01/16 10/01/16 10/01/16 07:46 08:00 08:15 Temperature 98 F Pulse Rate 88 86 86 Respiratory 17 16 17 Rate Blood Pressure 147/72 152/76 168/70 O2 Sat by Pulse 89 96 88 Oximetry O2 Sat by Pulse Oximetry [ Bilateral Throughout] 10/01/16 10/01/16 10/01/16 08:30 08:45 09:00 Temperature Pulse Rate 90 97 H 92 H Respiratory 15 16 16 Rate Blood Pressure 161/72 157/77 149/72 O2 Sat by Pulse 78 L 93 98 Oximetry O2 Sat by Pulse Oximetry [ Bilateral Throughout] 10/01/16 10/01/16 10/01/16 09:15 09:30 09:40 Temperature 98.0 F Pulse Rate 89 85 85 Respiratory 16 16 16 Rate Blood Pressure 147/71 134/74 148/66 O2 Sat by Pulse 96 96 Oximetry O2 Sat by Pulse 99 Oximetry [ Bilateral Throughout] 10/01/16 10/01/16 10/01/16 09:45 10:00 10:15 Temperature Pulse Rate 86 88 89 Respiratory 14 15 12 Rate Blood Pressure 148/66 157/72 154/70 O2 Sat by Pulse 96 100 93 Oximetry O2 Sat by Pulse Oximetry [ Bilateral Throughout] 10/01/16 10/01/16 10/01/16 10:30 10:45 11:00 Temperature Pulse Rate 85 86 90 Respiratory 15 Rate Blood Pressure 153/75 148/73 137/74 O2 Sat by Pulse 98 Oximetry O2 Sat by Pulse Oximetry [ Bilateral Throughout] 10/01/16 10/01/16 10/01/16 11:15 11:30 11:45 Temperature Pulse Rate 83 82 83 Respiratory Rate Blood Pressure 174/69 171/75 165/76 O2 Sat by Pulse Oximetry O2 Sat by Pulse Oximetry [ Bilateral Throughout] 10/01/16 10/01/16 10/01/16 12:00 12:15 12:30 Temperature 98 F Pulse Rate 88 89 93 H Respiratory Rate Blood Pressure 190/94 188/82 183/80 O2 Sat by Pulse Oximetry O2 Sat by Pulse Oximetry [ Bilateral Throughout] 10/01/16 10/01/16 10/01/16 12:45 13:00 13:10 Temperature Pulse Rate 85 92 H 89 Respiratory Rate Blood Pressure 197/100 193/99 199/87 O2 Sat by Pulse Oximetry O2 Sat by Pulse Oximetry [ Bilateral Throughout] 10/01/16 13:30 Temperature 98.0 F Pulse Rate 81 Respiratory 16 Rate Blood Pressure 199/89 O2 Sat by Pulse Oximetry O2 Sat by Pulse Oximetry [ Bilateral Throughout] Constitutional: no acute distress, alert Eyes: non-icteric ENT: oropharynx moist Neck: other (pressure dressing in place, neck swelling throughout which has improved) Ascultation: Bilateral: wheezes (faint expiratory bilaterally) Cardiovascular: regular rate and rhythm (no mrg) Gastrointestinal: normoactive bowel sounds, soft, non-tender, non-distended Integumentary: normal Extremities: no cyanosis, no edema, pink and warm Neurologic: non-focal exam, pupils equal and round, CN II-XII normal, other ( somnolent/arousable) Psychiatric: mood appropriate, affect normal CBC and BMP: 10/01/16 03:58 10/01/16 03:58 ABG, PT/INR, D-dimer: ABG POC ABG pH 7.373 (7.35-7.45) 09/30/16 04:50 POC ABG pCO2 52.5 (35-45) H 09/30/16 04:50 POC ABG pO2 97 (80-105) 09/30/16 04:50 POC ABG HCO3 30.6 09/30/16 04:50 POC ABG Total CO2 32 09/30/16 04:50 POC ABG O2 Sat 97 09/30/16 04:50 PT/INR, D-dimer PT 14.0 Sec. (12.2-14.9) 09/26/16 03:30 INR 1.09 (0.87-1.13) 09/26/16 03:30 Abnormal lab findings: Abnormal Labs 09/26/16 09/26/16 09/26/16 03:30 04:17 05:16 WBC RBC 3.05 L Hgb 9.2 L Hct 28.9 L MCV 95 H RDW 15.7 H Lymph % (Auto) 2.5 L [place] % (Auto) Eos % (Auto) Lymph # 0.2 L Eos # 0.5 H Seg Neutrophils % 86.9 H Seg Neuts % (Manual) Lymphocytes % (Manual) 6.0 L Monocytes % (Manual) 8.0 H Eosinophils % (Manual) 19.0 H Basophils % (Manual) 2.0 H Lymphocytes # (Manual) 0.4 L Eosinophils # (Manual) 1.3 H POC ABG pH POC ABG pCO2 POC ABG pO2 78 L Sodium 134 L Potassium Chloride 91.2 L Carbon Dioxide BUN 38 H Creatinine 8.8 H Glucose POC Glucose Calcium ALT Albumin 09/26/16 09/26/16 09/26/16 08:37 10:51 21:26 WBC 4.3 L RBC 2.72 L Hgb 8.3 L 7.9 L Hct 25.7 L 24.5 L MCV 95 H RDW 15.3 H Lymph % (Auto) [place] % (Auto) Eos % (Auto) Lymph # Eos # Seg Neutrophils % Seg Neuts % (Manual) Lymphocytes % (Manual) Monocytes % (Manual) Eosinophils % (Manual) Basophils % (Manual) Lymphocytes # (Manual) Eosinophils # (Manual) POC ABG pH POC ABG pCO2 POC ABG pO2 Sodium Potassium Chloride Carbon Dioxide BUN Creatinine Glucose POC Glucose 132 H Calcium ALT Albumin 09/27/16 09/27/16 09/27/16 04:06 06:00 06:00 WBC RBC 2.55 L Hgb 7.7 L Hct 24.1 L MCV RDW Lymph % (Auto) 9.0 L [place] % (Auto) 13.5 H Eos % (Auto) 5.0 H Lymph # 0.4 L Eos # Seg Neutrophils % 71.7 H Seg Neuts % (Manual) Lymphocytes % (Manual) Monocytes % (Manual) Eosinophils % (Manual) Basophils % (Manual) Lymphocytes # (Manual) Eosinophils # (Manual) POC ABG pH 7.272 L POC ABG pCO2 53.8 H POC ABG pO2 112 H Sodium 132 L Potassium 6.6 H* D Chloride 91.8 L Carbon Dioxide BUN 52 H Creatinine 10.8 H Glucose POC Glucose Calcium 6.7 L D ALT < 5 L Albumin 3.4 L 09/28/16 09/28/16 09/29/16 09:39 09:39 04:03 WBC 4.1 L RBC 2.45 L 3.63 L Hgb 7.4 L 10.7 L D Hct 22.9 L 33.2 L D MCV RDW Lymph % (Auto) 5.3 L [place] % (Auto) 11.3 H Eos % (Auto) 15.1 H Lymph # 0.3 L Eos # 0.8 H Seg Neutrophils % Seg Neuts % (Manual) 93.0 H Lymphocytes % (Manual) 5.0 L Monocytes % (Manual) Eosinophils % (Manual) Basophils % (Manual) Lymphocytes # (Manual) 0.2 L Eosinophils # (Manual) POC ABG pH POC ABG pCO2 POC ABG pO2 Sodium 136 L Potassium Chloride 95.0 L Carbon Dioxide BUN 29 H Creatinine 7.8 H Glucose POC Glucose Calcium 6.6 L ALT Albumin 09/29/16 09/29/16 09/29/16 04:03 14:58 18:00 WBC RBC Hgb Hct MCV RDW Lymph % (Auto) [place] % (Auto) Eos % (Auto) Lymph # Eos # Seg Neutrophils % Seg Neuts % (Manual) Lymphocytes % (Manual) Monocytes % (Manual) Eosinophils % (Manual) Basophils % (Manual) Lymphocytes # (Manual) Eosinophils # (Manual) POC ABG pH POC ABG pCO2 POC ABG pO2 Sodium Potassium 6.2 H* D Chloride 96.3 L 95.5 L 94.8 L Carbon Dioxide 21 L BUN 38 H Creatinine 9.2 H 4.9 H 5.5 H Glucose 116 H 106 H POC Glucose Calcium 6.5 L 7.6 L D 7.8 L ALT Albumin 09/30/16 09/30/16 09/30/16 00:24 04:50 06:46 WBC RBC Hgb Hct MCV RDW Lymph % (Auto) [place] % (Auto) Eos % (Auto) Lymph # Eos # Seg Neutrophils % Seg Neuts % (Manual) Lymphocytes % (Manual) Monocytes % (Manual) Eosinophils % (Manual) Basophils % (Manual) Lymphocytes # (Manual) Eosinophils # (Manual) POC ABG pH POC ABG pCO2 52.5 H POC ABG pO2 Sodium Potassium 5.2 H D Chloride 94.9 L 95.1 L Carbon Dioxide 21 L BUN 23 H 27 H Creatinine 6.1 H 7.1 H Glucose 111 H 102 H POC Glucose Calcium 7.5 L 7.8 L ALT Albumin 10/01/16 10/01/16 03:58 03:58 WBC RBC 2.56 L Hgb 7.8 L Hct 24.1 L D MCV RDW Lymph % (Auto) 6.4 L [place] % (Auto) 11.2 H Eos % (Auto) 7.6 H Lymph # 0.5 L Eos # 0.5 H Seg Neutrophils % 74.0 H Seg Neuts % (Manual) Lymphocytes % (Manual) Monocytes % (Manual) Eosinophils % (Manual) Basophils % (Manual) Lymphocytes # (Manual) Eosinophils # (Manual) POC ABG pH POC ABG pCO2 POC ABG pO2 Sodium Potassium Chloride 97.1 L Carbon Dioxide BUN 36 H Creatinine 8.6 H Glucose POC Glucose Calcium 7.7 L ALT Albumin Chest x-ray: report reviewed, image reviewed
[2016-10-01] MEDS: NORVASC PO SCH (14:08)
[2016-10-01] MEDS: PHOSLO PO SCH ×2 (14:08→21:04)
[2016-10-01] MEDS ORDERED: NACL 0.9 (PRIMING MACHINE ONLY DIALYSIS) MC ONE (15:34)
--- NOTE | 2016-10-01 16:07 | Progress Note ---
Subjective Patient Reports: Positive: feels better, still having pain, flatus Narrative: looks OKm wound clean , healing well , talked to Dr Molina , will leave D/C decision for Int Med .on liquids . Objective Vital Signs - 12hr 10/01/16 10/01/16 10/01/16 04:16 04:20 04:21 Temperature Pulse Rate 94 H Respiratory 18 Rate Blood Pressure 149/58 O2 Sat by Pulse 96 97 96 Oximetry O2 Sat by Pulse Oximetry [ Bilateral Throughout] 10/01/16 10/01/16 10/01/16 04:30 04:46 05:00 Temperature Pulse Rate 89 92 H 95 H Respiratory 18 18 19 Rate Blood Pressure 149/58 149/58 149/58 O2 Sat by Pulse 98 95 98 Oximetry O2 Sat by Pulse Oximetry [ Bilateral Throughout] 10/01/16 10/01/16 10/01/16 05:16 05:30 05:45 Temperature Pulse Rate 91 H 91 H 88 Respiratory 12 15 16 Rate Blood Pressure 149/58 149/58 145/68 O2 Sat by Pulse 95 99 100 Oximetry O2 Sat by Pulse Oximetry [ Bilateral Throughout] 10/01/16 10/01/16 10/01/16 05:51 06:00 06:15 Temperature Pulse Rate 98 H 94 H Respiratory 19 19 Rate Blood Pressure 135/54 154/67 O2 Sat by Pulse 100 88 95 Oximetry O2 Sat by Pulse Oximetry [ Bilateral Throughout] 10/01/16 10/01/16 10/01/16 06:30 06:45 07:00 Temperature Pulse Rate 95 H 85 92 H Respiratory 17 13 17 Rate Blood Pressure 142/77 156/66 156/66 O2 Sat by Pulse 100 98 90 Oximetry O2 Sat by Pulse Oximetry [ Bilateral Throughout] 10/01/16 10/01/16 10/01/16 07:13 07:14 07:15 Temperature Pulse Rate 90 Respiratory 17 Rate Blood Pressure 143/74 O2 Sat by Pulse 94 94 97 Oximetry O2 Sat by Pulse Oximetry [ Bilateral Throughout] 10/01/16 10/01/16 10/01/16 07:30 07:46 08:00 Temperature 98 F Pulse Rate 87 88 86 Respiratory 15 17 16 Rate Blood Pressure 149/74 147/72 152/76 O2 Sat by Pulse 91 89 96 Oximetry O2 Sat by Pulse Oximetry [ Bilateral Throughout] 10/01/16 10/01/16 10/01/16 08:15 08:30 08:45 Temperature Pulse Rate 86 90 97 H Respiratory 17 15 16 Rate Blood Pressure 168/70 161/72 157/77 O2 Sat by Pulse 88 78 L 93 Oximetry O2 Sat by Pulse Oximetry [ Bilateral Throughout] 10/01/16 10/01/16 10/01/16 09:00 09:15 09:30 Temperature Pulse Rate 92 H 89 85 Respiratory 16 16 16 Rate Blood Pressure 149/72 147/71 134/74 O2 Sat by Pulse 98 96 96 Oximetry O2 Sat by Pulse Oximetry [ Bilateral Throughout] 10/01/16 10/01/16 10/01/16 09:40 09:45 10:00 Temperature 98.0 F Pulse Rate 85 86 88 Respiratory 16 14 15 Rate Blood Pressure 148/66 148/66 157/72 O2 Sat by Pulse 96 100 Oximetry O2 Sat by Pulse 99 Oximetry [ Bilateral Throughout] 10/01/16 10/01/16 10/01/16 10:15 10:30 10:45 Temperature Pulse Rate 89 85 90 Respiratory 12 15 14 Rate Blood Pressure 154/70 153/75 148/73 O2 Sat by Pulse 93 98 97 Oximetry O2 Sat by Pulse Oximetry [ Bilateral Throughout] 10/01/16 10/01/16 10/01/16 11:00 11:15 11:16 Temperature Pulse Rate 85 83 85 Respiratory 16 15 Rate Blood Pressure 137/74 174/69 174/69 O2 Sat by Pulse 99 100 Oximetry O2 Sat by Pulse Oximetry [ Bilateral Throughout] 10/01/16 10/01/16 10/01/16 11:30 11:45 12:00 Temperature 98 F Pulse Rate 81 85 87 Respiratory 17 16 16 Rate Blood Pressure 171/75 165/76 190/94 O2 Sat by Pulse 100 100 91 Oximetry O2 Sat by Pulse Oximetry [ Bilateral Throughout] 10/01/16 10/01/16 10/01/16 12:15 12:30 12:45 Temperature Pulse Rate 86 89 90 Respiratory 17 16 15 Rate Blood Pressure 188/82 183/80 197/100 O2 Sat by Pulse 100 100 100 Oximetry O2 Sat by Pulse Oximetry [ Bilateral Throughout] 10/01/16 10/01/16 10/01/16 13:00 13:10 13:15 Temperature Pulse Rate 87 89 88 Respiratory 17 16 Rate Blood Pressure 193/99 199/87 189/87 O2 Sat by Pulse 100 98 Oximetry O2 Sat by Pulse Oximetry [ Bilateral Throughout] 10/01/16 10/01/16 10/01/16 13:30 13:46 14:00 Temperature 98.0 F Pulse Rate 94 H 88 91 H Respiratory 15 14 17 Rate Blood Pressure 199/89 205/79 182/76 O2 Sat by Pulse 94 99 97 Oximetry O2 Sat by Pulse Oximetry [ Bilateral Throughout] 10/01/16 14:08 Temperature Pulse Rate Respiratory Rate Blood Pressure 182/76 O2 Sat by Pulse Oximetry O2 Sat by Pulse Oximetry [ Bilateral Throughout] - Labs 10/01/16 03:58 10/01/16 03:58 Diabetes panel 10/01/16 Range/Units 03:58 Sodium 139 (137-145) mmol/L Potassium 4.2 (3.6-5.0) mmol/L Chloride 97.1 L (98-107) mmol/L Carbon Dioxide 24 (22-30) mmol/L BUN 36 H (9-20) mg/dL Creatinine 8.6 H (0.8-1.5) mg/dL Glucose 86 (75-100) mg/dL Calcium 7.7 L (8.4-10.2) mg/dL Calcium panel 10/01/16 Range/Units 03:58 Calcium 7.7 L (8.4-10.2) mg/dL Pituitary panel 10/01/16 Range/Units 03:58 Sodium 139 (137-145) mmol/L Potassium 4.2 (3.6-5.0) mmol/L Chloride 97.1 L (98-107) mmol/L Carbon Dioxide 24 (22-30) mmol/L BUN 36 H (9-20) mg/dL Creatinine 8.6 H (0.8-1.5) mg/dL Glucose 86 (75-100) mg/dL Calcium 7.7 L (8.4-10.2) mg/dL Adrenal panel 10/01/16 Range/Units 03:58 Sodium 139 (137-145) mmol/L Potassium 4.2 (3.6-5.0) mmol/L Chloride 97.1 L (98-107) mmol/L Carbon Dioxide 24 (22-30) mmol/L BUN 36 H (9-20) mg/dL Creatinine 8.6 H (0.8-1.5) mg/dL Glucose 86 (75-100) mg/dL Calcium 7.7 L (8.4-10.2) mg/dL
[2016-10-01] MEDS: HALDOL IV PRN ×2 (16:39→21:01)
[2016-10-01] MEDS: OSCAL PO SCH (21:05)
[2016-10-02] MEDS: CARDENE DRIP 40 MG/200 ML 40 MG/200 ML BAG IV SCH (02:44)
[2016-10-02 05:18] LABS: Basophils % (Auto) 0.7 % (0.0-1.8); Eosinophils % (Auto) 10.5 % (0.0-4.3); Hematocrit 23.5 % (35.5-45.6); Hemoglobin 7.6 gm/dl (11.8-15.2); Mean Corpuscular HGB Conc 32 % (32-34); Mean Corpuscular Hemoglobin 31 pg (28-32); Mean Corpuscular Volume 94 fl (84-94); Platelet Count 166 K/mm3 (140-440); Red Cell Distribution Width 14.3 % (13.2-15.2); White Blood Count 6.3 K/mm3 (4.5-11.0)
[2016-10-02 05:34] LABS: BUN/Creatinine Ratio 3.55; Chloride 96.3 mmol/L (98-107); Potassium 4.1 mmol/L (3.6-5.0)
[2016-10-02] MEDS: HALDOL IV PRN (06:10)
[2016-10-02] MEDS: PHOSLO PO SCH ×3 (08:00→20:21)
[2016-10-02] MEDS: PEPCID IV SCH (10:00)
--- NOTE | 2016-10-02 10:23 | Progress Note ---
Assessment and Plan Systoli murmer HTN Pulmonary Hypertension Improving Continue current management - Patient Problems (1) Cocaine abuse Current Visit: Yes Status: Acute (2) Neck swelling Current Visit: Yes Status: Acute (3) Respiratory failure Current Visit: Yes Status: Acute Qualifiers: Chronicity: acute Respiratory failure complication: unspecified whether with hypoxia or hypercapnia Qualified Code(s): J96.00 - Acute respiratory failure, unspecified whether with hypoxia or hypercapnia Subjective Date of service: 10/02/16 Principal diagnosis: neck hematoma, s/p parathyroidectomy Interval history: Patient is feeling better No new cardiac symptoms. Objective Vital Signs Temp Pulse Pulse Pulse Pulse Pulse Pulse 10/02/16 08:00 93 H 10/02/16 07:49 98.1 F 10/02/16 07:45 83 10/02/16 07:30 90 10/02/16 07:16 88 10/02/16 07:00 88 10/02/16 06:45 87 10/02/16 06:30 84 10/02/16 06:15 89 10/02/16 06:00 91 H 10/02/16 05:45 91 H 10/02/16 05:30 88 10/02/16 05:15 90 10/02/16 05:00 97 H 10/02/16 04:45 98 H 10/02/16 04:30 83 10/02/16 04:15 87 10/02/16 04:00 98.6 F 93 H 10/02/16 03:45 93 H 10/02/16 03:30 96 H 10/02/16 03:23 80 80 80 80 80 10/02/16 03:15 86 10/02/16 03:00 89 10/02/16 02:45 93 H 10/02/16 02:30 95 H 10/02/16 02:15 91 H 10/02/16 02:00 92 H 10/02/16 01:45 93 H 10/02/16 01:30 95 H 10/02/16 01:15 92 H 10/02/16 01:00 92 H 10/02/16 00:45 90 10/02/16 00:30 95 H 10/02/16 00:15 91 H 10/02/16 00:00 93 H 10/01/16 23:50 101 H 10/01/16 23:45 93 H 10/01/16 23:37 95 H 95 H 95 H 95 H 95 H 10/01/16 23:30 92 H 10/01/16 23:15 94 H 10/01/16 23:00 92 H 10/01/16 22:45 99 H 10/01/16 22:30 86 10/01/16 22:15 96 H 10/01/16 22:00 93 H 10/01/16 21:45 96 H 10/01/16 21:30 99 H 10/01/16 21:15 101 H 10/01/16 21:00 95 H 10/01/16 20:45 96 H 10/01/16 20:30 94 H 10/01/16 20:16 97 H 10/01/16 20:00 97 H 96 H 96 H 96 H 96 H 96 H 10/01/16 19:46 99 H 10/01/16 19:30 98 H 10/01/16 19:15 94 H 10/01/16 19:14 10/01/16 19:00 90 10/01/16 18:45 89 10/01/16 18:30 91 H 10/01/16 18:15 96 H 10/01/16 18:00 92 H 10/01/16 17:45 94 H 10/01/16 17:30 96 H 10/01/16 17:15 91 H 10/01/16 17:00 95 H 10/01/16 16:45 87 10/01/16 16:30 94 H 10/01/16 16:16 101 H 10/01/16 16:00 98.1 F 90 10/01/16 15:45 95 H 10/01/16 15:30 92 H 10/01/16 15:15 87 10/01/16 15:00 93 H 10/01/16 14:45 89 10/01/16 14:30 85 10/01/16 14:15 86 10/01/16 14:08 10/01/16 14:00 91 H 10/01/16 13:46 88 10/01/16 13:30 98.0 F 94 H 10/01/16 13:15 88 10/01/16 13:10 89 10/01/16 13:00 87 10/01/16 12:45 90 10/01/16 12:30 89 10/01/16 12:15 86 10/01/16 12:00 98 F 87 10/01/16 11:45 85 10/01/16 11:30 81 10/01/16 11:16 85 10/01/16 11:15 83 10/01/16 11:00 85 10/01/16 10:45 90 10/01/16 10:30 85 Resp BP Pulse Ox 10/02/16 08:00 13 149/72 98 10/02/16 07:49 10/02/16 07:45 14 153/65 100 10/02/16 07:30 14 132/78 100 10/02/16 07:16 15 150/72 100 10/02/16 07:00 17 167/70 100 10/02/16 06:45 14 163/67 100 10/02/16 06:30 14 151/71 100 10/02/16 06:15 16 150/78 100 10/02/16 06:00 14 153/78 100 10/02/16 05:45 17 151/75 100 10/02/16 05:30 14 142/73 100 10/02/16 05:15 14 123/71 100 10/02/16 05:00 18 159/75 78 L 10/02/16 04:45 14 143/82 100 10/02/16 04:30 14 149/75 100 10/02/16 04:15 15 150/74 100 10/02/16 04:00 16 135/76 100 10/02/16 03:45 17 139/74 100 10/02/16 03:30 20 133/64 90 10/02/16 03:23 14 100 10/02/16 03:15 15 147/68 100 10/02/16 03:00 16 138/72 100 10/02/16 02:45 18 130/85 100 10/02/16 02:30 19 135/92 99 10/02/16 02:15 16 131/74 99 10/02/16 02:00 14 142/83 100 10/02/16 01:45 17 128/68 90 10/02/16 01:30 16 132/75 94 10/02/16 01:15 16 126/74 100 10/02/16 01:00 17 132/75 98 10/02/16 00:45 17 119/69 99 10/02/16 00:30 16 126/70 99 10/02/16 00:15 17 129/65 99 10/02/16 00:00 15 134/65 99 10/01/16 23:50 18 115/71 80 L 10/01/16 23:45 16 115/71 94 10/01/16 23:37 22 92 10/01/16 23:30 17 117/64 91 10/01/16 23:15 15 124/67 99 10/01/16 23:00 19 140/63 97 10/01/16 22:45 15 141/69 90 10/01/16 22:30 17 145/65 98 10/01/16 22:15 20 142/69 100 10/01/16 22:00 19 145/67 98 10/01/16 21:45 15 161/65 99 10/01/16 21:30 16 162/72 100 10/01/16 21:15 16 152/72 98 10/01/16 21:00 18 143/71 95 10/01/16 20:45 17 151/86 100 10/01/16 20:30 18 155/69 93 10/01/16 20:16 17 142/74 97 10/01/16 20:00 17 142/74 96 10/01/16 19:46 17 138/78 94 10/01/16 19:30 17 154/98 98 10/01/16 19:15 17 154/98 99 10/01/16 19:14 96 10/01/16 19:00 17 154/71 99 10/01/16 18:45 19 168/76 91 10/01/16 18:30 19 144/76 92 10/01/16 18:15 18 144/76 100 10/01/16 18:00 16 139/102 80 L 10/01/16 17:45 16 139/102 99 10/01/16 17:30 16 147/73 100 10/01/16 17:15 17 139/67 100 10/01/16 17:00 16 128/75 96 10/01/16 16:45 13 124/62 96 10/01/16 16:30 18 143/62 95 10/01/16 16:16 13 140/67 94 10/01/16 16:00 17 132/68 99 10/01/16 15:45 16 151/74 98 10/01/16 15:30 14 160/74 95 10/01/16 15:15 17 162/69 99 10/01/16 15:00 18 158/70 98 10/01/16 14:45 16 165/70 92 10/01/16 14:30 15 200/83 98 10/01/16 14:15 16 174/84 100 10/01/16 14:08 182/76 10/01/16 14:00 17 182/76 97 10/01/16 13:46 14 205/79 99 10/01/16 13:30 15 199/89 94 10/01/16 13:15 16 189/87 98 10/01/16 13:10 199/87 10/01/16 13:00 17 193/99 100 10/01/16 12:45 15 197/100 100 10/01/16 12:30 16 183/80 100 10/01/16 12:15 17 188/82 100 10/01/16 12:00 16 190/94 91 10/01/16 11:45 16 165/76 100 10/01/16 11:30 17 171/75 100 10/01/16 11:16 15 174/69 100 10/01/16 11:15 174/69 10/01/16 11:00 16 137/74 99 10/01/16 10:45 14 148/73 97 10/01/16 10:30 15 153/75 98 - Physical Examination General: No Apparent Distress HEENT: Positive: PERRL, EOMI, Normocephaly, Mucus Membranes Moist Neck: Positive: Other (pressure dressing applied to anterior neck; anterior neck swelling noted) Cardiac: Positive: Reg Rate and Rhythm, Systolic Murmur (2/6) Neuro: Positive: Grossly Intact, Cranial Nerve 2-12 Intact Abdomen: Positive: Unremarkable, Soft, Active Bowel Sounds Skin: Positive: Clear, Other (anterior neck swelling ). Negative: Rash Musculoskeletal: No Pain Extremities: Present: upper extr. pulses, lower extr. pulses. Absent: edema - Labs and Meds CBC 10/02/16 Range/Units 03:58 WBC 6.3 (4.5-11.0) K/mm3 RBC 2.50 L (3.65-5.03) M/mm3 Hgb 7.6 L (11.8-15.2) gm/dl Hct 23.5 L (35.5-45.6) % Plt Count 166 (140-440) K/mm3 Lymph # 0.3 L (1.2-5.4) K/mm3 [place] # 0.7 (0.0-0.8) K/mm3 Eos # 0.7 H (0.0-0.4) K/mm3 Baso # 0.0 (0.0-0.1) K/mm3 Comprehensive Metabolic Panel 10/02/16 Range/Units 03:58 Sodium 139 (137-145) mmol/L Potassium 4.1 (3.6-5.0) mmol/L Chloride 96.3 L (98-107) mmol/L Carbon Dioxide 27 (22-30) mmol/L BUN 21 H (9-20) mg/dL Creatinine 5.9 H (0.8-1.5) mg/dL Glucose 75 (75-100) mg/dL Calcium 9.0 D (8.4-10.2) mg/dL - Imaging and Cardiology EKG: report reviewed Echo: report reviewed (09/26/2016: mild concentric LHV, ER 50 - 55%, mildly dilated LA, impaired relaxation, posterior mitral annular calcification, mild TR , moderate pulmonary HTN, RVSP 61mmHg)
[2016-10-02] MEDS: ROCALTROL PO SCH (12:05)
[2016-10-02] MEDS: APRESOLINE PO SCH ×2 (12:06→22:04)
[2016-10-02] MEDS: NORVASC PO SCH (12:06)
--- NOTE | 2016-10-02 13:43 | Progress Note ---
Assessment and Plan Impression: * End stage renal disease on HD MWF * Hematoma s/p parathyroidectomy * Acute respiratory failure secondary to hematoma * Hypertension * Hyperkalemia * Hypocalcemia s/p parathyroidectomy Plan: * Hemodialysis MWF schedule. UF as tolerated. No heparin * Surgery following - he is s/p hematoma evacuation * Patient is s/p parathyroidectomy. * Serum calcium is now 9.0. Shall discontinue Ca Gluconate gtt; * Continue oral PhosLo TID and Oscal at bedtime; * Continue po calcitriol * Adjust Ca bath with dialysis * Cardene gtt per critical care; being weaned off at this time * Transfusion of pRBC prn * Epogen protocol * Nutrition per primary team Subjective Date of service: 10/02/16 Principal diagnosis: neck hematoma, s/p parathyroidectomy Interval history: Patient remains in the ICU. He is comfortable. Denies any shortness of breath. No nausea or vomiting Objective - Vital Signs Vital signs: Vital Signs - 12hr 10/02/16 10/02/16 10/02/16 01:45 02:00 02:15 Temperature Pulse Rate 93 H 92 H 91 H Pulse Rate [ From Monitor] Pulse Rate [ Left Dorsalis Pedis] Pulse Rate [ Left Radial] Pulse Rate [ Right Dorsalis Pedis] Pulse Rate [ Right Radial] Respiratory 17 14 16 Rate Blood Pressure 128/68 142/83 131/74 O2 Sat by Pulse 90 100 99 Oximetry 10/02/16 10/02/16 10/02/16 02:30 02:45 03:00 Temperature Pulse Rate 95 H 93 H 89 Pulse Rate [ From Monitor] Pulse Rate [ Left Dorsalis Pedis] Pulse Rate [ Left Radial] Pulse Rate [ Right Dorsalis Pedis] Pulse Rate [ Right Radial] Respiratory 19 18 16 Rate Blood Pressure 135/92 130/85 138/72 O2 Sat by Pulse 99 100 100 Oximetry 10/02/16 10/02/16 10/02/16 03:15 03:23 03:30 Temperature Pulse Rate 86 96 H Pulse Rate [ 80 From Monitor] Pulse Rate [ 80 Left Dorsalis Pedis] Pulse Rate [ 80 Left Radial] Pulse Rate [ 80 Right Dorsalis Pedis] Pulse Rate [ 80 Right Radial] Respiratory 15 14 20 Rate Blood Pressure 147/68 133/64 O2 Sat by Pulse 100 100 90 Oximetry 10/02/16 10/02/16 10/02/16 03:45 04:00 04:15 Temperature 98.6 F Pulse Rate 93 H 93 H 87 Pulse Rate [ From Monitor] Pulse Rate [ Left Dorsalis Pedis] Pulse Rate [ Left Radial] Pulse Rate [ Right Dorsalis Pedis] Pulse Rate [ Right Radial] Respiratory 17 16 15 Rate Blood Pressure 139/74 135/76 150/74 O2 Sat by Pulse 100 100 100 Oximetry 10/02/16 10/02/16 10/02/16 04:30 04:45 05:00 Temperature Pulse Rate 83 98 H 97 H Pulse Rate [ From Monitor] Pulse Rate [ Left Dorsalis Pedis] Pulse Rate [ Left Radial] Pulse Rate [ Right Dorsalis Pedis] Pulse Rate [ Right Radial] Respiratory 14 14 18 Rate Blood Pressure 149/75 143/82 159/75 O2 Sat by Pulse 100 100 78 L Oximetry 10/02/16 10/02/16 10/02/16 05:15 05:30 05:45 Temperature Pulse Rate 90 88 91 H Pulse Rate [ From Monitor] Pulse Rate [ Left Dorsalis Pedis] Pulse Rate [ Left Radial] Pulse Rate [ Right Dorsalis Pedis] Pulse Rate [ Right Radial] Respiratory 14 14 17 Rate Blood Pressure 123/71 142/73 151/75 O2 Sat by Pulse 100 100 100 Oximetry 10/02/16 10/02/16 10/02/16 06:00 06:15 06:30 Temperature Pulse Rate 91 H 89 84 Pulse Rate [ From Monitor] Pulse Rate [ Left Dorsalis Pedis] Pulse Rate [ Left Radial] Pulse Rate [ Right Dorsalis Pedis] Pulse Rate [ Right Radial] Respiratory 14 16 14 Rate Blood Pressure 153/78 150/78 151/71 O2 Sat by Pulse 100 100 100 Oximetry 10/02/16 10/02/16 10/02/16 06:45 07:00 07:16 Temperature Pulse Rate 87 88 88 Pulse Rate [ From Monitor] Pulse Rate [ Left Dorsalis Pedis] Pulse Rate [ Left Radial] Pulse Rate [ Right Dorsalis Pedis] Pulse Rate [ Right Radial] Respiratory 14 17 15 Rate Blood Pressure 163/67 167/70 150/72 O2 Sat by Pulse 100 100 100 Oximetry 10/02/16 10/02/16 10/02/16 07:30 07:45 07:49 Temperature 98.1 F Pulse Rate 90 83 Pulse Rate [ From Monitor] Pulse Rate [ Left Dorsalis Pedis] Pulse Rate [ Left Radial] Pulse Rate [ Right Dorsalis Pedis] Pulse Rate [ Right Radial] Respiratory 14 14 Rate Blood Pressure 132/78 153/65 O2 Sat by Pulse 100 100 Oximetry 10/02/16 10/02/16 10/02/16 08:00 12:00 12:06 Temperature 98.3 F Pulse Rate 93 H 94 H Pulse Rate [ From Monitor] Pulse Rate [ Left Dorsalis Pedis] Pulse Rate [ Left Radial] Pulse Rate [ Right Dorsalis Pedis] Pulse Rate [ Right Radial] Respiratory 13 Rate Blood Pressure 149/72 146/77 O2 Sat by Pulse 98 Oximetry - General Appearance General appearance: well-developed, well-nourished, appears stated age EENT: ATNC, PERRL Neck: other (incision noted in the anterior aspect of his neck) Respiratory: Present: Ronchi (few scattered rhonchi) Cardiology: regular, normal heart rate, S1S2, no murmurs Gastrointestinal: normal, normoactive bowel sounds Integumentary: no rash, other (no edema. AV fistula in his left upper arm. Good bruit and thrill) - Lab 10/02/16 03:58 10/02/16 03:58 Most recent lab results Calcium 9.0 mg/dL (8.4-10.2) D 10/02/16 03:58
--- NOTE | 2016-10-02 14:38 | Progress Note ---
Subjective Narrative: more alert tolerating PO well ,looks congested Had HD yesterday , will leave management for Int Med . Objective Vital Signs - 12hr 10/02/16 10/02/16 10/02/16 02:45 03:00 03:15 Temperature Pulse Rate 93 H 89 86 Pulse Rate [ From Monitor] Pulse Rate [ Left Dorsalis Pedis] Pulse Rate [ Left Radial] Pulse Rate [ Right Dorsalis Pedis] Pulse Rate [ Right Radial] Respiratory 18 16 15 Rate Blood Pressure 130/85 138/72 147/68 O2 Sat by Pulse 100 100 100 Oximetry 10/02/16 10/02/16 10/02/16 03:23 03:30 03:45 Temperature Pulse Rate 96 H 93 H Pulse Rate [ 80 From Monitor] Pulse Rate [ 80 Left Dorsalis Pedis] Pulse Rate [ 80 Left Radial] Pulse Rate [ 80 Right Dorsalis Pedis] Pulse Rate [ 80 Right Radial] Respiratory 14 20 17 Rate Blood Pressure 133/64 139/74 O2 Sat by Pulse 100 90 100 Oximetry 10/02/16 10/02/16 10/02/16 04:00 04:15 04:30 Temperature 98.6 F Pulse Rate 93 H 87 83 Pulse Rate [ From Monitor] Pulse Rate [ Left Dorsalis Pedis] Pulse Rate [ Left Radial] Pulse Rate [ Right Dorsalis Pedis] Pulse Rate [ Right Radial] Respiratory 16 15 14 Rate Blood Pressure 135/76 150/74 149/75 O2 Sat by Pulse 100 100 100 Oximetry 10/02/16 10/02/16 10/02/16 04:45 05:00 05:15 Temperature Pulse Rate 98 H 97 H 90 Pulse Rate [ From Monitor] Pulse Rate [ Left Dorsalis Pedis] Pulse Rate [ Left Radial] Pulse Rate [ Right Dorsalis Pedis] Pulse Rate [ Right Radial] Respiratory 14 18 14 Rate Blood Pressure 143/82 159/75 123/71 O2 Sat by Pulse 100 78 L 100 Oximetry 10/02/16 10/02/16 10/02/16 05:30 05:45 06:00 Temperature Pulse Rate 88 91 H 91 H Pulse Rate [ From Monitor] Pulse Rate [ Left Dorsalis Pedis] Pulse Rate [ Left Radial] Pulse Rate [ Right Dorsalis Pedis] Pulse Rate [ Right Radial] Respiratory 14 17 14 Rate Blood Pressure 142/73 151/75 153/78 O2 Sat by Pulse 100 100 100 Oximetry 10/02/16 10/02/16 10/02/16 06:15 06:30 06:45 Temperature Pulse Rate 89 84 87 Pulse Rate [ From Monitor] Pulse Rate [ Left Dorsalis Pedis] Pulse Rate [ Left Radial] Pulse Rate [ Right Dorsalis Pedis] Pulse Rate [ Right Radial] Respiratory 16 14 14 Rate Blood Pressure 150/78 151/71 163/67 O2 Sat by Pulse 100 100 100 Oximetry 10/02/16 10/02/16 10/02/16 07:00 07:16 07:30 Temperature Pulse Rate 88 88 90 Pulse Rate [ From Monitor] Pulse Rate [ Left Dorsalis Pedis] Pulse Rate [ Left Radial] Pulse Rate [ Right Dorsalis Pedis] Pulse Rate [ Right Radial] Respiratory 17 15 14 Rate Blood Pressure 167/70 150/72 132/78 O2 Sat by Pulse 100 100 100 Oximetry 10/02/16 10/02/16 10/02/16 07:45 07:49 08:00 Temperature 98.1 F Pulse Rate 83 93 H Pulse Rate [ From Monitor] Pulse Rate [ Left Dorsalis Pedis] Pulse Rate [ Left Radial] Pulse Rate [ Right Dorsalis Pedis] Pulse Rate [ Right Radial] Respiratory 14 13 Rate Blood Pressure 153/65 149/72 O2 Sat by Pulse 100 98 Oximetry 10/02/16 10/02/16 12:00 12:06 Temperature 98.3 F Pulse Rate 94 H Pulse Rate [ From Monitor] Pulse Rate [ Left Dorsalis Pedis] Pulse Rate [ Left Radial] Pulse Rate [ Right Dorsalis Pedis] Pulse Rate [ Right Radial] Respiratory Rate Blood Pressure 146/77 O2 Sat by Pulse Oximetry - Labs 10/02/16 03:58 10/02/16 03:58 Diabetes panel 10/02/16 Range/Units 03:58 Sodium 139 (137-145) mmol/L Potassium 4.1 (3.6-5.0) mmol/L Chloride 96.3 L (98-107) mmol/L Carbon Dioxide 27 (22-30) mmol/L BUN 21 H (9-20) mg/dL Creatinine 5.9 H (0.8-1.5) mg/dL Glucose 75 (75-100) mg/dL Calcium 9.0 D (8.4-10.2) mg/dL Calcium panel 10/02/16 Range/Units 03:58 Calcium 9.0 D (8.4-10.2) mg/dL Pituitary panel 10/02/16 Range/Units 03:58 Sodium 139 (137-145) mmol/L Potassium 4.1 (3.6-5.0) mmol/L Chloride 96.3 L (98-107) mmol/L Carbon Dioxide 27 (22-30) mmol/L BUN 21 H (9-20) mg/dL Creatinine 5.9 H (0.8-1.5) mg/dL Glucose 75 (75-100) mg/dL Calcium 9.0 D (8.4-10.2) mg/dL Adrenal panel 10/02/16 Range/Units 03:58 Sodium 139 (137-145) mmol/L Potassium 4.1 (3.6-5.0) mmol/L Chloride 96.3 L (98-107) mmol/L Carbon Dioxide 27 (22-30) mmol/L BUN 21 H (9-20) mg/dL Creatinine 5.9 H (0.8-1.5) mg/dL Glucose 75 (75-100) mg/dL Calcium 9.0 D (8.4-10.2) mg/dL
--- NOTE | 2016-10-02 15:53 | Progress Note ---
Assessment and Plan ssessment and Plan Imp: 1. Neck hematoma s/p evacuation; cytology showed acute inflammation/blood 2. Acute respiratory failure, hypoxia 3. Cocaine abuse 4. ESRD 5. Pulm HTN, suspect 2/2 #'s 2, 3, and chronic diastolic CHF; can screen for ESTEFANI and other pulm issues once extubated 6. Delirium versus withdrawal syndrome Rec: 1. On and off HFNC -> hypoxia may be due to uncontrolled HTN causing pulm vascular congestion; agree w/ starting PO Hydralazine, wean off Cardene, and wean off HFNC today to keep sats 88% or above 2. Monitor H/H -> transfuse if less than 7.0/21.0 3. SCDs 4. D/c cocaine 5. Haldol prn for agitation 6. No HD today 7. Complex patient/decision-making due to still significant hypoxia Subjective Date of service: 10/02/16 Principal diagnosis: neck hematoma, s/p parathyroidectomy Interval history: No significant change. No new complaints. No shortness of breath. Objective Vital Signs - 12hr 10/02/16 10/02/16 10/02/16 04:00 04:15 04:30 Temperature 98.6 F Pulse Rate 93 H 87 83 Respiratory 16 15 14 Rate Blood Pressure 135/76 150/74 149/75 O2 Sat by Pulse 100 100 100 Oximetry 10/02/16 10/02/16 10/02/16 04:45 05:00 05:15 Temperature Pulse Rate 98 H 97 H 90 Respiratory 14 18 14 Rate Blood Pressure 143/82 159/75 123/71 O2 Sat by Pulse 100 78 L 100 Oximetry 10/02/16 10/02/16 10/02/16 05:30 05:45 06:00 Temperature Pulse Rate 88 91 H 91 H Respiratory 14 17 14 Rate Blood Pressure 142/73 151/75 153/78 O2 Sat by Pulse 100 100 100 Oximetry 10/02/16 10/02/16 10/02/16 06:15 06:30 06:45 Temperature Pulse Rate 89 84 87 Respiratory 16 14 14 Rate Blood Pressure 150/78 151/71 163/67 O2 Sat by Pulse 100 100 100 Oximetry 10/02/16 10/02/16 10/02/16 07:00 07:16 07:30 Temperature Pulse Rate 88 88 90 Respiratory 17 15 14 Rate Blood Pressure 167/70 150/72 132/78 O2 Sat by Pulse 100 100 100 Oximetry 10/02/16 10/02/16 10/02/16 07:45 07:49 08:00 Temperature 98.1 F Pulse Rate 83 93 H Respiratory 14 13 Rate Blood Pressure 153/65 149/72 O2 Sat by Pulse 100 98 Oximetry 10/02/16 10/02/16 10/02/16 12:00 12:06 14:53 Temperature 98.3 F Pulse Rate 94 H Respiratory Rate Blood Pressure 146/77 O2 Sat by Pulse 99 Oximetry Constitutional: no acute distress, alert Eyes: non-icteric ENT: oropharynx moist Neck: other (pressure dressing in place, neck swelling throughout which has improved) Ascultation: Bilateral: diminished breath sounds, other (coarse equal BS bilaterally) Percussion: Bilateral: not dull Cardiovascular: regular rate and rhythm (no mrg) Gastrointestinal: normoactive bowel sounds, soft, non-tender, non-distended Integumentary: normal Extremities: no cyanosis, no edema, pink and warm Neurologic: non-focal exam, pupils equal and round, CN II-XII normal, other ( somnolent/arousable) Psychiatric: mood appropriate, affect normal CBC and BMP: 10/02/16 03:58 10/02/16 03:58 ABG, PT/INR, D-dimer: ABG POC ABG pH 7.373 (7.35-7.45) 09/30/16 04:50 POC ABG pCO2 52.5 (35-45) H 09/30/16 04:50 POC ABG pO2 97 (80-105) 09/30/16 04:50 POC ABG HCO3 30.6 09/30/16 04:50 POC ABG Total CO2 32 09/30/16 04:50 POC ABG O2 Sat 97 09/30/16 04:50 PT/INR, D-dimer PT 14.0 Sec. (12.2-14.9) 09/26/16 03:30 INR 1.09 (0.87-1.13) 09/26/16 03:30 Abnormal lab findings: Abnormal Labs 09/26/16 09/26/16 09/26/16 03:30 04: 05:16 WBC RBC 3.05 L Hgb 9.2 L Hct 28.9 L MCV 95 H RDW 15.7 H Lymph % (Auto) 2.5 L Real % (Auto) Eos % (Auto) Lymph # 0.2 L Eos # 0.5 H Seg Neutrophils % 86.9 H Seg Neuts % (Manual) Lymphocytes % (Manual) 6.0 L Monocytes % (Manual) 8.0 H Eosinophils % (Manual) 19.0 H Basophils % (Manual) 2.0 H Lymphocytes # (Manual) 0.4 L Eosinophils # (Manual) 1.3 H POC ABG pH POC ABG pCO2 POC ABG pO2 78 L Sodium 134 L Potassium Chloride 91.2 L Carbon Dioxide BUN 38 H Creatinine 8.8 H Glucose POC Glucose Calcium Ionized Calcium ALT Albumin 09/26/16 09/26/16 09/26/16 08:37 10:51 21:26 WBC 4.3 L RBC 2.72 L Hgb 8.3 L 7.9 L Hct 25.7 L 24.5 L MCV 95 H RDW 15.3 H Lymph % (Auto) Real % (Auto) Eos % (Auto) Lymph # Eos # Seg Neutrophils % Seg Neuts % (Manual) Lymphocytes % (Manual) Monocytes % (Manual) Eosinophils % (Manual) Basophils % (Manual) Lymphocytes # (Manual) Eosinophils # (Manual) POC ABG pH POC ABG pCO2 POC ABG pO2 Sodium Potassium Chloride Carbon Dioxide BUN Creatinine Glucose POC Glucose 132 H Calcium Ionized Calcium ALT Albumin 09/27/16 09/27/16 09/27/16 04:06 06:00 06:00 WBC RBC 2.55 L Hgb 7.7 L Hct 24.1 L MCV RDW Lymph % (Auto) 9.0 L Real % (Auto) 13.5 H Eos % (Auto) 5.0 H Lymph # 0.4 L Eos # Seg Neutrophils % 71.7 H Seg Neuts % (Manual) Lymphocytes % (Manual) Monocytes % (Manual) Eosinophils % (Manual) Basophils % (Manual) Lymphocytes # (Manual) Eosinophils # (Manual) POC ABG pH 7.272 L POC ABG pCO2 53.8 H POC ABG pO2 112 H Sodium 132 L Potassium 6.6 H* D Chloride 91.8 L Carbon Dioxide BUN 52 H Creatinine 10.8 H Glucose POC Glucose Calcium 6.7 L D Ionized Calcium ALT < 5 L Albumin 3.4 L 09/28/16 09/28/16 09/29/16 09:39 09:39 04:03 WBC 4.1 L RBC 2.45 L 3.63 L Hgb 7.4 L 10.7 L D Hct 22.9 L 33.2 L D MCV RDW Lymph % (Auto) 5.3 L Real % (Auto) 11.3 H Eos % (Auto) 15.1 H Lymph # 0.3 L Eos # 0.8 H Seg Neutrophils % Seg Neuts % (Manual) 93.0 H Lymphocytes % (Manual) 5.0 L Monocytes % (Manual) Eosinophils % (Manual) Basophils % (Manual) Lymphocytes # (Manual) 0.2 L Eosinophils # (Manual) POC ABG pH POC ABG pCO2 POC ABG pO2 Sodium 136 L Potassium Chloride 95.0 L Carbon Dioxide BUN 29 H Creatinine 7.8 H Glucose POC Glucose Calcium 6.6 L Ionized Calcium ALT Albumin 09/29/16 09/29/16 09/29/16 04:03 14:58 18:00 WBC RBC Hgb Hct MCV RDW Lymph % (Auto) Real % (Auto) Eos % (Auto) Lymph # Eos # Seg Neutrophils % Seg Neuts % (Manual) Lymphocytes % (Manual) Monocytes % (Manual) Eosinophils % (Manual) Basophils % (Manual) Lymphocytes # (Manual) Eosinophils # (Manual) POC ABG pH POC ABG pCO2 POC ABG pO2 Sodium Potassium 6.2 H* D Chloride 96.3 L 95.5 L 94.8 L Carbon Dioxide 21 L BUN 38 H Creatinine 9.2 H 4.9 H 5.5 H Glucose 116 H 106 H POC Glucose Calcium 6.5 L 7.6 L D 7.8 L Ionized Calcium ALT Albumin 09/30/16 09/30/16 09/30/16 00:24 04:50 06:46 WBC RBC Hgb Hct MCV RDW Lymph % (Auto) Real % (Auto) Eos % (Auto) Lymph # Eos # Seg Neutrophils % Seg Neuts % (Manual) Lymphocytes % (Manual) Monocytes % (Manual) Eosinophils % (Manual) Basophils % (Manual) Lymphocytes # (Manual) Eosinophils # (Manual) POC ABG pH POC ABG pCO2 52.5 H POC ABG pO2 Sodium Potassium 5.2 H D Chloride 94.9 L Carbon Dioxide 21 L BUN 23 H Creatinine 6.1 H Glucose 111 H POC Glucose Calcium 7.5 L Ionized Calcium 3.9 L ALT Albumin 09/30/16 10/01/16 10/01/16 06:46 03:58 03:58 WBC RBC 2.56 L Hgb 7.8 L Hct 24.1 L D MCV RDW Lymph % (Auto) 6.4 L Real % (Auto) 11.2 H Eos % (Auto) 7.6 H Lymph # 0.5 L Eos # 0.5 H Seg Neutrophils % 74.0 H Seg Neuts % (Manual) Lymphocytes % (Manual) Monocytes % (Manual) Eosinophils % (Manual) Basophils % (Manual) Lymphocytes # (Manual) Eosinophils # (Manual) POC ABG pH POC ABG pCO2 POC ABG pO2 Sodium Potassium Chloride 95.1 L 97.1 L Carbon Dioxide BUN 27 H 36 H Creatinine 7.1 H 8.6 H Glucose 102 H POC Glucose Calcium 7.8 L 7.7 L Ionized Calcium ALT Albumin 10/02/16 10/02/16 03:58 03:58 WBC RBC 2.50 L Hgb 7.6 L Hct 23.5 L MCV RDW Lymph % (Auto) 5.1 L Real % (Auto) 11.9 H Eos % (Auto) 10.5 H Lymph # 0.3 L Eos # 0.7 H Seg Neutrophils % 71.8 H Seg Neuts % (Manual) Lymphocytes % (Manual) Monocytes % (Manual) Eosinophils % (Manual) Basophils % (Manual) Lymphocytes # (Manual) Eosinophils # (Manual) POC ABG pH POC ABG pCO2 POC ABG pO2 Sodium Potassium Chloride 96.3 L Carbon Dioxide BUN 21 H Creatinine 5.9 H Glucose POC Glucose Calcium Ionized Calcium ALT Albumin
[2016-10-02] MEDS: OSCAL PO SCH (22:04)
[2016-10-03] MEDS: HALDOL IV PRN (01:38)
[2016-10-03] MEDS: PHOSLO PO SCH ×3 (08:23→21:20)
[2016-10-03] MEDS: ROCALTROL PO SCH (09:19)
[2016-10-03] MEDS: NORVASC PO SCH (09:19)
[2016-10-03] MEDS: APRESOLINE PO SCH ×2 (09:21→21:24)
[2016-10-03] MEDS: PEPCID IV SCH (09:22)
[2016-10-03 10:01] LABS: BUN/Creatinine Ratio 3.58; Calcium 8.2 mg/dL (8.4-10.2); Phosphorous 3.5 mg/dL (2.5-4.5); Potassium 4.3 mmol/L (3.6-5.0)
[2016-10-03] MEDS: APRESOLINE IV PRN ×2 (10:12→17:29)
--- NOTE | 2016-10-03 10:43 | Progress Note ---
Assessment and Plan BP control. Increase dose of hydralazine. He was on Clonidine at home.Will place him on Clonidine 0.2 mg PO BID. F/U H & H. - Patient Problems (1) Accelerated hypertension Current Visit: Yes Status: Acute (2) Acute blood loss anemia Current Visit: Yes Status: Acute (3) Cocaine abuse Current Visit: Yes Status: Chronic (4) ESRD on hemodialysis Current Visit: Yes Status: Chronic (5) Neck swelling Current Visit: Yes Status: Acute (6) Post-operative complication Current Visit: Yes Status: Acute Qualifiers: Surgical complication system/body Area: [id number] Surgical complication type: S Procedure type: P Encounter type: initial encounter Laterality: L Postoperative shock type: unspecified shock type (7) Respiratory failure Current Visit: Yes Status: Acute Qualifiers: Chronicity: acute on chronic Respiratory failure complication: unspecified whether with hypoxia or hypercapnia Qualified Code(s): J96.20 - Acute and chronic respiratory failure, unspecified whether with hypoxia or hypercapnia Subjective Date of service: 10/03/16 Principal diagnosis: neck hematoma, s/p parathyroidectomy Interval history: Neck swelling - less. OOB in chair. Accelerated hypertension 210/113 mm Hg. No CP or SOB. Sinus rhythm.K 4.3, Hb 7.6. Objective Vital Signs Temp Pulse Pulse Pulse Pulse Resp BP 10/03/16 10:12 92 H 210/113 10/03/16 09:19 105 H 200/109 10/03/16 09:02 90 10 L 10/03/16 08:00 18 84/51 10/03/16 07:36 97.6 F 10/03/16 07:00 92 H 19 70/44 10/03/16 06:58 10/03/16 06:00 93 H 20 66/26 10/03/16 05:00 96 H 21 113/78 10/03/16 04:00 98.8 F 95 H 17 138/92 10/03/16 03:00 99 H 22 93/62 10/03/16 02:00 102 H 25 H 130/93 10/03/16 01:00 104 H 27 H 74/44 10/03/16 00:00 100 H 25 H 164/87 10/02/16 23:43 99.1 F 10/02/16 23:00 106 H 164/87 10/02/16 22:00 95 H 20 118/89 10/02/16 21:52 101 H 10/02/16 21:11 114 H 20 118/89 10/02/16 21:00 103 H 16 115/78 10/02/16 20:00 96 H 100 H 22 76/22 10/02/16 19:57 98.9 F 10/02/16 19:00 93 H 20 76/22 10/02/16 16:00 98.3 F 89 89 89 20 10/02/16 14:53 10/02/16 12:06 94 H 146/77 10/02/16 12:00 98.3 F Pulse Ox 10/03/16 10:12 10/03/16 09:19 10/03/16 09:02 95 10/03/16 08:00 98 10/03/16 07:36 10/03/16 07:00 96 10/03/16 06:58 100 10/03/16 06:00 100 10/03/16 05:00 96 10/03/16 04:00 96 10/03/16 03:00 96 10/03/16 02:00 99 10/03/16 01:00 91 10/03/16 00:00 97 10/02/16 23:43 10/02/16 23:00 98 10/02/16 22:00 100 10/02/16 21:52 10/02/16 21:11 93 10/02/16 21:00 87 10/02/16 20:00 87 10/02/16 19:57 10/02/16 19:00 99 10/02/16 16:00 96 10/02/16 14:53 99 10/02/16 12:06 10/02/16 12:00 - Physical Examination General: No Apparent Distress HEENT: Positive: PERRL, EOMI, Normocephaly, Mucus Membranes Moist Neck: Positive: Other (pressure dressing applied to anterior neck; anterior neck swelling noted) Cardiac: Positive: Reg Rate and Rhythm, Other (loud S2) Lungs: Positive: clear to auscultation, Normal Breath Sounds Neuro: Positive: Grossly Intact, Cranial Nerve 2-12 Intact Abdomen: Positive: Unremarkable, Soft, Active Bowel Sounds Skin: Positive: Clear, Other (anterior neck swelling ). Negative: Rash Musculoskeletal: No Pain, Normal Range of Motion Extremities: Present: upper extr. pulses, lower extr. pulses. Absent: edema - Labs and Meds Comprehensive Metabolic Panel 10/03/16 Range/Units 09:16 Sodium 135 L (137-145) mmol/L Potassium 4.3 (3.6-5.0) mmol/L Chloride 94.0 L (98-107) mmol/L Carbon Dioxide 24 (22-30) mmol/L BUN 33 H (9-20) mg/dL Creatinine 9.2 H D (0.8-1.5) mg/dL Glucose 116 H (75-100) mg/dL Calcium 8.2 L (8.4-10.2) mg/dL - Imaging and Cardiology EKG: report reviewed, image reviewed Echo: report reviewed (09/26/2016: mild concentric LHV, ER 50 - 55%, mildly dilated LA, impaired relaxation, posterior mitral annular calcification, mild TR , moderate pulmonary HTN, RVSP 61mmHg) - Telemetry EKG Rhythm: Sinus Rhythm - EKG Sinus rhythms and dysrhythmias: sinus rhythm
[2016-10-03] MEDS ORDERED: CATAPRES PO SCH ×2 (11:00→20:49)
--- NOTE | 2016-10-03 11:11 | Progress Note ---
Assessment and Plan Impression: * End stage renal disease on HD MWF * Hematoma s/p parathyroidectomy * Acute respiratory failure secondary to hematoma * Hypertension * Hyperkalemia * Hypocalcemia s/p parathyroidectomy Plan: * Hemodialysis MWF schedule. UF as tolerated. No heparin * Patient undergoes hemodialysis at [facility] [address] under the care of Dr. Patel * Surgery following - he is s/p hematoma evacuation * Patient is s/p parathyroidectomy. * Serum calcium is stable. Off Ca Gluconate gtt; * Continue oral PhosLo TID and Oscal at bedtime; * Continue po calcitriol * Adjust Ca bath with dialysis * Blood pressure noted to be elevated. Antihypertensive meds being adjusted by cardiology services * Transfusion of pRBC prn * Epogen protocol * Nutrition per primary team Subjective Date of service: 10/03/16 Principal diagnosis: neck hematoma, s/p parathyroidectomy Interval history: Patient is comfortable. He is sitting comfortably in the chair. Denies any shortness of breath Objective - Vital Signs Vital signs: Vital Signs - 12hr 10/02/16 10/03/16 10/03/16 23:43 00:00 01:00 Temperature 99.1 F Pulse Rate 100 H 104 H Respiratory 25 H 27 H Rate Blood Pressure 164/87 74/44 O2 Sat by Pulse 97 91 Oximetry 10/03/16 10/03/16 10/03/16 02:00 03:00 04:00 Temperature 98.8 F Pulse Rate 102 H 99 H 95 H Respiratory 25 H 22 17 Rate Blood Pressure 130/93 93/62 138/92 O2 Sat by Pulse 99 96 96 Oximetry 10/03/16 10/03/16 10/03/16 05:00 06:00 06:58 Temperature Pulse Rate 96 H 93 H Respiratory 21 20 Rate Blood Pressure 113/78 66/26 O2 Sat by Pulse 96 100 100 Oximetry 10/03/16 10/03/16 10/03/16 07:00 07:36 08:00 Temperature 97.6 F Pulse Rate 92 H Respiratory 19 18 Rate Blood Pressure 70/44 84/51 O2 Sat by Pulse 96 98 Oximetry 10/03/16 10/03/16 10/03/16 09:02 09:19 10:12 Temperature Pulse Rate 90 105 H 92 H Respiratory 10 L Rate Blood Pressure 200/109 210/113 O2 Sat by Pulse 95 Oximetry - General Appearance General appearance: well-developed, well-nourished, appears stated age EENT: PERRL, mucous membranes moist Neck: no JVD, other (incision noted in the anterior aspect of his neck) Respiratory: Present: Clear to Ascultation Cardiology: regular, normal heart rate, S1S2, no murmurs Gastrointestinal: normal, normoactive bowel sounds Integumentary: no rash, other (AV fistula in his left upper arm. Good bruit and thrill) - Lab 10/02/16 03:58 10/03/16 09:16 Most recent lab results Calcium 8.2 mg/dL (8.4-10.2) L 10/03/16 09:16 Phosphorus 3.5 mg/dL (2.5-4.5) 10/03/16 09:16
--- NOTE | 2016-10-03 13:09 | Progress Note ---
Assessment and Plan ssessment and Plan Imp: 1. Neck hematoma s/p evacuation; cytology showed acute inflammation/blood 2. Acute respiratory failure, hypoxia 3. Cocaine abuse 4. ESRD 5. Pulm HTN, suspect 2/2 #'s 2, 3, and chronic diastolic CHF; can screen for ESTEFANI and other pulm issues once extubated 6. Delirium versus withdrawal syndrome Rec: 1. Now off HFNC -> hypoxia may be due to uncontrolled HTN causing pulm vascular congestion, now appears to have resolved. He should and is now on nasal cannula oxygen. 2. Monitor H/H -> transfuse if less than 7.0/21.0 3. SCDs 4. D/c cocaine 5. Haldol prn for agitation 6. No HD today 7. Complex patient/decision-making due to still significant hypoxia 8. Pulmonary-moreno stable to be transferred out of ICU Subjective Date of service: 10/03/16 Principal diagnosis: neck hematoma, s/p parathyroidectomy Interval history: No significant change. No new complaints. No shortness of breath. Objective Vital Signs - 12hr 10/03/16 10/03/16 10/03/16 02:00 03:00 04:00 Temperature 98.8 F Pulse Rate 102 H 99 H 95 H Respiratory 25 H 22 17 Rate Blood Pressure 130/93 93/62 138/92 O2 Sat by Pulse 99 96 96 Oximetry 10/03/16 10/03/16 10/03/16 05:00 06:00 06:58 Temperature Pulse Rate 96 H 93 H Respiratory 21 20 Rate Blood Pressure 113/78 66/26 O2 Sat by Pulse 96 100 100 Oximetry 10/03/16 10/03/16 10/03/16 07:00 07:36 08:00 Temperature 97.6 F Pulse Rate 92 H Respiratory 19 18 Rate Blood Pressure 70/44 84/51 O2 Sat by Pulse 96 98 Oximetry 10/03/16 10/03/16 10/03/16 09:02 09:19 10:00 Temperature Pulse Rate 90 105 H 90 Respiratory 10 L 16 Rate Blood Pressure 200/109 208/110 O2 Sat by Pulse 95 98 Oximetry 10/03/16 10/03/16 10/03/16 10:12 11:00 12:00 Temperature 98.3 F Pulse Rate 92 H 95 H 96 H Respiratory 15 Rate Blood Pressure 210/113 189/94 198/93 O2 Sat by Pulse 85 Oximetry Constitutional: no acute distress, alert Eyes: non-icteric ENT: oropharynx moist Neck: other (pressure dressing in place, neck swelling throughout which has improved) Ascultation: Bilateral: diminished breath sounds, wheezes (faint expiratory bilaterally), other (coarse equal BS bilaterally) Percussion: Bilateral: not dull Cardiovascular: regular rate and rhythm (no mrg) Gastrointestinal: normoactive bowel sounds, soft, non-tender, non-distended Integumentary: normal Extremities: no cyanosis, no edema, pink and warm Neurologic: non-focal exam, pupils equal and round, CN II-XII normal, other ( somnolent/arousable) Psychiatric: mood appropriate, affect normal CBC and BMP: 10/02/16 03:58 10/03/16 09:16 ABG, PT/INR, D-dimer: ABG POC ABG pH 7.373 (7.35-7.45) 09/30/16 04:50 POC ABG pCO2 52.5 (35-45) H 09/30/16 04:50 POC ABG pO2 97 (80-105) 09/30/16 04:50 POC ABG HCO3 30.6 09/30/16 04:50 POC ABG Total CO2 32 09/30/16 04:50 POC ABG O2 Sat 97 09/30/16 04:50 PT/INR, D-dimer PT 14.0 Sec. (12.2-14.9) 09/26/16 03:30 INR 1.09 (0.87-1.13) 09/26/16 03:30 Abnormal lab findings: Abnormal Labs 09/26/16 09/26/16 09/26/16 03:30 04:17 05:16 WBC RBC 3.05 L Hgb 9.2 L Hct 28.9 L MCV 95 H RDW 15.7 H Lymph % (Auto) 2.5 L Cuming % (Auto) Eos % (Auto) Lymph # 0.2 L Eos # 0.5 H Seg Neutrophils % 86.9 H Seg Neuts % (Manual) Lymphocytes % (Manual) 6.0 L Monocytes % (Manual) 8.0 H Eosinophils % (Manual) 19.0 H Basophils % (Manual) 2.0 H Lymphocytes # (Manual) 0.4 L Eosinophils # (Manual) 1.3 H POC ABG pH POC ABG pCO2 POC ABG pO2 78 L Sodium 134 L Potassium Chloride 91.2 L Carbon Dioxide BUN 38 H Creatinine 8.8 H Glucose POC Glucose Calcium Ionized Calcium ALT Albumin 09/26/16 09/26/16 09/26/16 08:37 10:51 21:26 WBC 4.3 L RBC 2.72 L Hgb 8.3 L 7.9 L Hct 25.7 L 24.5 L MCV 95 H RDW 15.3 H Lymph % (Auto) Cuming % (Auto) Eos % (Auto) Lymph # Eos # Seg Neutrophils % Seg Neuts % (Manual) Lymphocytes % (Manual) Monocytes % (Manual) Eosinophils % (Manual) Basophils % (Manual) Lymphocytes # (Manual) Eosinophils # (Manual) POC ABG pH POC ABG pCO2 POC ABG pO2 Sodium Potassium Chloride Carbon Dioxide BUN Creatinine Glucose POC Glucose 132 H Calcium Ionized Calcium ALT Albumin 09/27/16 09/27/16 09/27/16 04:06 06:00 06:00 WBC RBC 2.55 L Hgb 7.7 L Hct 24.1 L MCV RDW Lymph % (Auto) 9.0 L Cuming % (Auto) 13.5 H Eos % (Auto) 5.0 H Lymph # 0.4 L Eos # Seg Neutrophils % 71.7 H Seg Neuts % (Manual) Lymphocytes % (Manual) Monocytes % (Manual) Eosinophils % (Manual) Basophils % (Manual) Lymphocytes # (Manual) Eosinophils # (Manual) POC ABG pH 7.272 L POC ABG pCO2 53.8 H POC ABG pO2 112 H Sodium 132 L Potassium 6.6 H* D Chloride 91.8 L Carbon Dioxide BUN 52 H Creatinine 10.8 H Glucose POC Glucose Calcium 6.7 L D Ionized Calcium ALT < 5 L Albumin 3.4 L 09/28/16 09/28/16 09/29/16 09:39 09:39 04:03 WBC 4.1 L RBC 2.45 L 3.63 L Hgb 7.4 L 10.7 L D Hct 22.9 L 33.2 L D MCV RDW Lymph % (Auto) 5.3 L Cuming % (Auto) 11.3 H Eos % (Auto) 15.1 H Lymph # 0.3 L Eos # 0.8 H Seg Neutrophils % Seg Neuts % (Manual) 93.0 H Lymphocytes % (Manual) 5.0 L Monocytes % (Manual) Eosinophils % (Manual) Basophils % (Manual) Lymphocytes # (Manual) 0.2 L Eosinophils # (Manual) POC ABG pH POC ABG pCO2 POC ABG pO2 Sodium 136 L Potassium Chloride 95.0 L Carbon Dioxide BUN 29 H Creatinine 7.8 H Glucose POC Glucose Calcium 6.6 L Ionized Calcium ALT Albumin 09/29/16 09/29/16 09/29/16 04:03 14:58 18:00 WBC RBC Hgb Hct MCV RDW Lymph % (Auto) Cuming % (Auto) Eos % (Auto) Lymph # Eos # Seg Neutrophils % Seg Neuts % (Manual) Lymphocytes % (Manual) Monocytes % (Manual) Eosinophils % (Manual) Basophils % (Manual) Lymphocytes # (Manual) Eosinophils # (Manual) POC ABG pH POC ABG pCO2 POC ABG pO2 Sodium Potassium 6.2 H* D Chloride 96.3 L 95.5 L 94.8 L Carbon Dioxide 21 L BUN 38 H Creatinine 9.2 H 4.9 H 5.5 H Glucose 116 H 106 H POC Glucose Calcium 6.5 L 7.6 L D 7.8 L Ionized Calcium ALT Albumin 09/30/16 09/30/16 09/30/16 00:24 04:50 06:46 WBC RBC Hgb Hct MCV RDW Lymph % (Auto) Cuming % (Auto) Eos % (Auto) Lymph # Eos # Seg Neutrophils % Seg Neuts % (Manual) Lymphocytes % (Manual) Monocytes % (Manual) Eosinophils % (Manual) Basophils % (Manual) Lymphocytes # (Manual) Eosinophils # (Manual) POC ABG pH POC ABG pCO2 52.5 H POC ABG pO2 Sodium Potassium 5.2 H D Chloride 94.9 L Carbon Dioxide 21 L BUN 23 H Creatinine 6.1 H Glucose 111 H POC Glucose Calcium 7.5 L Ionized Calcium 3.9 L ALT Albumin 09/30/16 10/01/16 10/01/16 06:46 03:58 03:58 WBC RBC 2.56 L Hgb 7.8 L Hct 24.1 L D MCV RDW Lymph % (Auto) 6.4 L Cuming % (Auto) 11.2 H Eos % (Auto) 7.6 H Lymph # 0.5 L Eos # 0.5 H Seg Neutrophils % 74.0 H Seg Neuts % (Manual) Lymphocytes % (Manual) Monocytes % (Manual) Eosinophils % (Manual) Basophils % (Manual) Lymphocytes # (Manual) Eosinophils # (Manual) POC ABG pH POC ABG pCO2 POC ABG pO2 Sodium Potassium Chloride 95.1 L 97.1 L Carbon Dioxide BUN 27 H 36 H Creatinine 7.1 H 8.6 H Glucose 102 H POC Glucose Calcium 7.8 L 7.7 L Ionized Calcium ALT Albumin 10/02/16 10/02/16 10/03/16 03:58 03:58 09:16 WBC RBC 2.50 L Hgb 7.6 L Hct 23.5 L MCV RDW Lymph % (Auto) 5.1 L Cuming % (Auto) 11.9 H Eos % (Auto) 10.5 H Lymph # 0.3 L Eos # 0.7 H Seg Neutrophils % 71.8 H Seg Neuts % (Manual) Lymphocytes % (Manual) Monocytes % (Manual) Eosinophils % (Manual) Basophils % (Manual) Lymphocytes # (Manual) Eosinophils # (Manual) POC ABG pH POC ABG pCO2 POC ABG pO2 Sodium 135 L Potassium Chloride 96.3 L 94.0 L Carbon Dioxide BUN 21 H 33 H Creatinine 5.9 H 9.2 H D Glucose 116 H POC Glucose Calcium 8.2 L Ionized Calcium ALT Albumin
[2016-10-03] MEDS ORDERED: APRESOLINE PO SCH (14:00)
[2016-10-03] MEDS: ZESTRIL PO SCH (21:00)
[2016-10-03] MEDS: LASIX PO SCH (21:22)
[2016-10-03] MEDS: CATAPRES PO SCH (21:23)
[2016-10-03] MEDS: OSCAL PO SCH (21:24)
[2016-10-04] MEDS: APRESOLINE IV PRN (05:00)
[2016-10-04 06:44] LABS: Hematocrit 23.9 % (35.5-45.6); Hemoglobin 7.5 gm/dl (11.8-15.2)
[2016-10-04] MEDS: LASIX PO SCH (09:36)
[2016-10-04] MEDS: ZESTRIL PO SCH ×2 (09:36→22:55)
[2016-10-04] MEDS: PEPCID PO SCH (09:36)
[2016-10-04] MEDS: APRESOLINE PO SCH ×2 (09:37→22:55)
[2016-10-04] MEDS: PHOSLO PO SCH ×3 (09:38→20:51)
[2016-10-04] MEDS: NORVASC PO SCH (09:40)
--- NOTE | 2016-10-04 09:51 | Progress Note ---
Assessment and Plan - Patient Problems (1) ESRD on hemodialysis Current Visit: Yes Status: Chronic Plan to address problem: pt was seen and examined during HD via AVF. BP-178/94, P-81, afebrile, tolerating UF. S/P parathyroid surgery for secondary hyperparathyroidism. Maintain on Calcium supplements and Calcitriol (2) HTN (hypertension) Current Visit: Yes Status: Chronic Qualifiers: Hypertension type: H Plan to address problem: optimise BP meds (3) Acute blood loss anemia Current Visit: Yes Status: Acute Plan to address problem: Hb-7.5--Epogen if BP is well controlled. May consider PRBC if Hb drops further. S/P parathyroid surgery--Hematoma--S/P evacuation (4) Respiratory failure Current Visit: Yes Status: Resolved Qualifiers: Chronicity: acute on chronic Respiratory failure complication: unspecified whether with hypoxia or hypercapnia Qualified Code(s): J96.20 - Acute and chronic respiratory failure, unspecified whether with hypoxia or hypercapnia (5) Cocaine abuse Current Visit: Yes Status: Chronic Subjective Date of service: 10/04/16 Principal diagnosis: neck hematoma, s/p parathyroidectomy Interval history: pt is alert, oriented, currently on HD, denies CP or SOB or difficulty swallowing Objective - Vital Signs Vital signs: Vital Signs - 12hr 10/03/16 10/03/16 10/04/16 22:00 23:00 00:25 Temperature 98.6 F Pulse Rate 87 Pulse Rate [ 87 Right Radial] Respiratory 22 20 20 Rate Respiratory 22 Rate [Throat] Blood Pressure Blood Pressure 158/79 [Right Arm] O2 Sat by Pulse 98 97 98 Oximetry 10/04/16 10/04/16 10/04/16 04:00 05:00 09:36 Temperature 98.3 F Pulse Rate Pulse Rate [ 82 Right Radial] Respiratory 20 Rate Respiratory Rate [Throat] Blood Pressure 210/103 166/102 Blood Pressure 210/103 [Right Arm] O2 Sat by Pulse 100 Oximetry - General Appearance General appearance: well-developed EENT: mucous membranes moist Neck: no JVD, other (dressing over recent parathyroid surgical site) Respiratory: Present: Clear to Ascultation Cardiology: regular Gastrointestinal: normoactive bowel sounds Neurologic: alert and oriented x3 Psychiatric: mood/affect appropriate, cooperative - Lab 10/04/16 04:50 04/09/17 09:16 Most recent lab results Calcium 8.2 mg/dL (8.4-10.2) L 10/03/16 09:16 Phosphorus 3.5 mg/dL (2.5-4.5) 10/03/16 09:16 Magnesium 1.9 mg/dL (1.7-2.3) 10/04/16 04:50
--- NOTE | 2016-10-04 11:30 | Progress Note ---
Assessment and Plan Assessment: Neck hematoma s/p evacuation / s/p parathyroidectomy Acute respiratory failure - extubated. Acute blood loss anemia ESRD, on HD - on MWF schedule. HTN Obesity Moderate pulmonary HTN - RVSP 61mmHg on echo 09/26/2016. Tobacco use / cocaine use Plan: Increase lisinopril to 20mg BID for further BP optimization. The patient has been seen in conjunction with Dr. Norman Kwok who agrees with the assessment and plan of care. Subjective Date of service: 10/04/16 Principal diagnosis: neck hematoma, s/p parathyroidectomy Interval history: Seen in HD, resting in bed, no complaints. BPs remain elevated but are improving. Objective Last Vital Signs Temp 98 F 10/04/16 10:44 Pulse 82 10/04/16 10:44 Resp 18 10/04/16 10:44 BP 178/94 10/04/16 10:44 Pulse Ox 99 10/04/16 10:14 - Physical Examination General: No Apparent Distress HEENT: Positive: PERRL, EOMI, Normocephaly, Mucus Membranes Moist Neck: Positive: Other (pressure dressing applied to anterior neck; anterior neck swelling noted) Cardiac: Positive: Reg Rate and Rhythm, S1/S2, Systolic Murmur Lungs: Positive: Normal Exam, clear to auscultation, Normal Breath Sounds Neuro: Positive: Grossly Intact, Cranial Nerve 2-12 Intact Abdomen: Positive: Unremarkable, Soft, Active Bowel Sounds Skin: Positive: Clear, Other (anterior neck swelling ). Negative: Rash Musculoskeletal: No Pain, Normal Range of Motion Extremities: Present: upper extr. pulses, lower extr. pulses. Absent: edema - Labs and Meds CBC 10/04/16 Range/Units 04:50 Hgb 7.5 L (11.8-15.2) gm/dl Hct 23.9 L (35.5-45.6) % - Imaging and Cardiology EKG: report reviewed, image reviewed Echo: report reviewed (09/26/2016: mild concentric LHV, ER 50 - 55%, mildly dilated LA, impaired relaxation, posterior mitral annular calcification, mild TR , moderate pulmonary HTN, RVSP 61mmHg) - Telemetry EKG Rhythm: Sinus Rhythm - EKG Sinus rhythms and dysrhythmias: sinus rhythm
--- NOTE | 2016-10-04 13:27 | Progress Note ---
Assessment and Plan 51 y/o male admitted with neck hematoma after parathyroid surgery at outside hospital, requiring mechanical ventilation for airway protection and adequate sedation. 1. Wean FiO2 as tolerated 2. HD per renal, MWF 3. Net negative state 4. Neck per surgery. Subjective Date of service: 10/04/16 Principal diagnosis: neck hematoma, s/p parathyroidectomy Interval history: Currently in HD. On nasal cannula. Per patient, breathing is fine. Bandage/ dressing was changed on neck today by surgery. Objective Vital Signs - 12hr 10/04/16 10/04/16 10/04/16 04:00 05:00 09:00 Temperature 98.3 F 98.3 F Pulse Rate Pulse Rate [ 84 From Monitor] Pulse Rate [ 82 Right Radial] Respiratory 20 17 Rate Blood Pressure 210/103 Blood Pressure 210/103 166/102 [Right Arm] O2 Sat by Pulse 100 99 Oximetry 10/04/16 10/04/16 10/04/16 09:36 10:00 10:14 Temperature Pulse Rate 80 Pulse Rate [ From Monitor] Pulse Rate [ Right Radial] Respiratory Rate Blood Pressure 166/102 Blood Pressure [Right Arm] O2 Sat by Pulse 99 Oximetry 10/04/16 10/04/16 10/04/16 10:15 10:30 10:44 Temperature 98 F Pulse Rate 88 80 82 Pulse Rate [ From Monitor] Pulse Rate [ Right Radial] Respiratory 18 Rate Blood Pressure 180/82 188/98 178/94 Blood Pressure [Right Arm] O2 Sat by Pulse Oximetry 10/04/16 10/04/16 10/04/16 10:45 11:00 11:15 Temperature Pulse Rate 86 80 82 Pulse Rate [ From Monitor] Pulse Rate [ Right Radial] Respiratory Rate Blood Pressure 186/90 198/100 186/100 Blood Pressure [Right Arm] O2 Sat by Pulse Oximetry 10/04/16 10/04/16 10/04/16 11:30 11:45 12:00 Temperature Pulse Rate 80 80 260 H Pulse Rate [ From Monitor] Pulse Rate [ Right Radial] Respiratory Rate Blood Pressure 188/98 160/84 182/92 Blood Pressure [Right Arm] O2 Sat by Pulse Oximetry 10/04/16 10/04/16 10/04/16 12:15 12:30 12:45 Temperature Pulse Rate 80 82 80 Pulse Rate [ From Monitor] Pulse Rate [ Right Radial] Respiratory Rate Blood Pressure 188/100 184/94 186/100 Blood Pressure [Right Arm] O2 Sat by Pulse Oximetry 10/04/16 13:00 Temperature Pulse Rate 82 Pulse Rate [ From Monitor] Pulse Rate [ Right Radial] Respiratory Rate Blood Pressure 202/108 Blood Pressure [Right Arm] O2 Sat by Pulse Oximetry Constitutional: no acute distress, alert Eyes: non-icteric ENT: oropharynx moist Neck: other (pressure dressing in place, neck swelling throughout which has improved) Ascultation: Bilateral: diminished breath sounds, wheezes (faint expiratory bilaterally), other (coarse equal BS bilaterally) Percussion: Bilateral: not dull Cardiovascular: regular rate and rhythm (no mrg) Gastrointestinal: normoactive bowel sounds, soft, non-tender, non-distended Integumentary: normal Extremities: no cyanosis, no edema, pink and warm Neurologic: non-focal exam, pupils equal and round, CN II-XII normal, other ( somnolent/arousable) Psychiatric: mood appropriate, affect normal CBC and BMP: 10/04/16 04:50 10/03/16 09:16 ABG, PT/INR, D-dimer: ABG POC ABG pH 7.373 (7.35-7.45) 09/30/16 04:50 POC ABG pCO2 52.5 (35-45) H 09/30/16 04:50 POC ABG pO2 97 (80-105) 09/30/16 04:50 POC ABG HCO3 30.6 09/30/16 04:50 POC ABG Total CO2 32 09/30/16 04:50 POC ABG O2 Sat 97 09/30/16 04:50 PT/INR, D-dimer PT 14.0 Sec. (12.2-14.9) 09/26/16 03:30 INR 1.09 (0.87-1.13) 09/26/16 03:30 Abnormal lab findings: Abnormal Labs 09/26/16 09/26/16 09/26/16 03:30 04: 05:16 WBC RBC 3.05 L Hgb 9.2 L Hct 28.9 L MCV 95 H RDW 15.7 H Lymph % (Auto) 2.5 L [place] % (Auto) Eos % (Auto) Lymph # 0.2 L Eos # 0.5 H Seg Neutrophils % 86.9 H Seg Neuts % (Manual) Lymphocytes % (Manual) 6.0 L Monocytes % (Manual) 8.0 H Eosinophils % (Manual) 19.0 H Basophils % (Manual) 2.0 H Lymphocytes # (Manual) 0.4 L Eosinophils # (Manual) 1.3 H POC ABG pH POC ABG pCO2 POC ABG pO2 78 L Sodium 134 L Potassium Chloride 91.2 L Carbon Dioxide BUN 38 H Creatinine 8.8 H Glucose POC Glucose Calcium Ionized Calcium ALT Albumin 09/26/16 09/26/16 09/26/16 08:37 10:51 21:26 WBC 4.3 L RBC 2.72 L Hgb 8.3 L 7.9 L Hct 25.7 L 24.5 L MCV 95 H RDW 15.3 H Lymph % (Auto) [place] % (Auto) Eos % (Auto) Lymph # Eos # Seg Neutrophils % Seg Neuts % (Manual) Lymphocytes % (Manual) Monocytes % (Manual) Eosinophils % (Manual) Basophils % (Manual) Lymphocytes # (Manual) Eosinophils # (Manual) POC ABG pH POC ABG pCO2 POC ABG pO2 Sodium Potassium Chloride Carbon Dioxide BUN Creatinine Glucose POC Glucose 132 H Calcium Ionized Calcium ALT Albumin 09/27/16 09/27/16 09/27/16 04:06 06:00 06:00 WBC RBC 2.55 L Hgb 7.7 L Hct 24.1 L MCV RDW Lymph % (Auto) 9.0 L [place] % (Auto) 13.5 H Eos % (Auto) 5.0 H Lymph # 0.4 L Eos # Seg Neutrophils % 71.7 H Seg Neuts % (Manual) Lymphocytes % (Manual) Monocytes % (Manual) Eosinophils % (Manual) Basophils % (Manual) Lymphocytes # (Manual) Eosinophils # (Manual) POC ABG pH 7.272 L POC ABG pCO2 53.8 H POC ABG pO2 112 H Sodium 132 L Potassium 6.6 H* D Chloride 91.8 L Carbon Dioxide BUN 52 H Creatinine 10.8 H Glucose POC Glucose Calcium 6.7 L D Ionized Calcium ALT < 5 L Albumin 3.4 L 09/28/16 09/28/16 09/29/16 09:39 09:39 04:03 WBC 4.1 L RBC 2.45 L 3.63 L Hgb 7.4 L 10.7 L D Hct 22.9 L 33.2 L D MCV RDW Lymph % (Auto) 5.3 L [place] % (Auto) 11.3 H Eos % (Auto) 15.1 H Lymph # 0.3 L Eos # 0.8 H Seg Neutrophils % Seg Neuts % (Manual) 93.0 H Lymphocytes % (Manual) 5.0 L Monocytes % (Manual) Eosinophils % (Manual) Basophils % (Manual) Lymphocytes # (Manual) 0.2 L Eosinophils # (Manual) POC ABG pH POC ABG pCO2 POC ABG pO2 Sodium 136 L Potassium Chloride 95.0 L Carbon Dioxide BUN 29 H Creatinine 7.8 H Glucose POC Glucose Calcium 6.6 L Ionized Calcium ALT Albumin 09/29/16 09/29/16 09/29/16 04:03 14:58 18:00 WBC RBC Hgb Hct MCV RDW Lymph % (Auto) [place] % (Auto) Eos % (Auto) Lymph # Eos # Seg Neutrophils % Seg Neuts % (Manual) Lymphocytes % (Manual) Monocytes % (Manual) Eosinophils % (Manual) Basophils % (Manual) Lymphocytes # (Manual) Eosinophils # (Manual) POC ABG pH POC ABG pCO2 POC ABG pO2 Sodium Potassium 6.2 H* D Chloride 96.3 L 95.5 L 94.8 L Carbon Dioxide 21 L BUN 38 H Creatinine 9.2 H 4.9 H 5.5 H Glucose 116 H 106 H POC Glucose Calcium 6.5 L 7.6 L D 7.8 L Ionized Calcium ALT Albumin 09/30/16 09/30/16 09/30/16 00:24 04:50 06:46 WBC RBC Hgb Hct MCV RDW Lymph % (Auto) [place] % (Auto) Eos % (Auto) Lymph # Eos # Seg Neutrophils % Seg Neuts % (Manual) Lymphocytes % (Manual) Monocytes % (Manual) Eosinophils % (Manual) Basophils % (Manual) Lymphocytes # (Manual) Eosinophils # (Manual) POC ABG pH POC ABG pCO2 52.5 H POC ABG pO2 Sodium Potassium 5.2 H D Chloride 94.9 L Carbon Dioxide 21 L BUN 23 H Creatinine 6.1 H Glucose 111 H POC Glucose Calcium 7.5 L Ionized Calcium 3.9 L ALT Albumin 09/30/16 10/01/16 10/01/16 06:46 03:58 03:58 WBC RBC 2.56 L Hgb 7.8 L Hct 24.1 L D MCV RDW Lymph % (Auto) 6.4 L [place] % (Auto) 11.2 H Eos % (Auto) 7.6 H Lymph # 0.5 L Eos # 0.5 H Seg Neutrophils % 74.0 H Seg Neuts % (Manual) Lymphocytes % (Manual) Monocytes % (Manual) Eosinophils % (Manual) Basophils % (Manual) Lymphocytes # (Manual) Eosinophils # (Manual) POC ABG pH POC ABG pCO2 POC ABG pO2 Sodium Potassium Chloride 95.1 L 97.1 L Carbon Dioxide BUN 27 H 36 H Creatinine 7.1 H 8.6 H Glucose 102 H POC Glucose Calcium 7.8 L 7.7 L Ionized Calcium ALT Albumin 10/02/16 10/02/16 10/03/16 03:58 03:58 09:16 WBC RBC 2.50 L Hgb 7.6 L Hct 23.5 L MCV RDW Lymph % (Auto) 5.1 L [place] % (Auto) 11.9 H Eos % (Auto) 10.5 H Lymph # 0.3 L Eos # 0.7 H Seg Neutrophils % 71.8 H Seg Neuts % (Manual) Lymphocytes % (Manual) Monocytes % (Manual) Eosinophils % (Manual) Basophils % (Manual) Lymphocytes # (Manual) Eosinophils # (Manual) POC ABG pH POC ABG pCO2 POC ABG pO2 Sodium 135 L Potassium Chloride 96.3 L 94.0 L Carbon Dioxide BUN 21 H 33 H Creatinine 5.9 H 9.2 H D Glucose 116 H POC Glucose Calcium 8.2 L Ionized Calcium ALT Albumin 10/04/16 04:50 WBC RBC Hgb 7.5 L Hct 23.9 L MCV RDW Lymph % (Auto) [place] % (Auto) Eos % (Auto) Lymph # Eos # Seg Neutrophils % Seg Neuts % (Manual) Lymphocytes % (Manual) Monocytes % (Manual) Eosinophils % (Manual) Basophils % (Manual) Lymphocytes # (Manual) Eosinophils # (Manual) POC ABG pH POC ABG pCO2 POC ABG pO2 Sodium Potassium Chloride Carbon Dioxide BUN Creatinine Glucose POC Glucose Calcium Ionized Calcium ALT Albumin
[2016-10-04] MEDS: CATAPRES PO SCH ×2 (14:30→23:50)
[2016-10-04] MEDS: ROCALTROL PO SCH (15:38)
--- NOTE | 2016-10-04 19:14 | Progress Note ---
Subjective Patient Reports: Positive: feels better, tolerating a regular diet, flatus Narrative: doing fine , seen in HD dept , abd soft wound cllean ,still with high BP . on soft diet , Objective Vital Signs - 12hr 10/04/16 10/04/16 10/04/16 09:00 09:36 10:00 Temperature 98.3 F Pulse Rate 80 Pulse Rate [ 84 From Monitor] Respiratory 17 Rate Blood Pressure 166/102 Blood Pressure 166/102 [Right Arm] O2 Sat by Pulse 99 Oximetry 10/04/16 10/04/16 10/04/16 10:14 10:15 10:30 Temperature Pulse Rate 88 80 Pulse Rate [ From Monitor] Respiratory Rate Blood Pressure 180/82 188/98 Blood Pressure [Right Arm] O2 Sat by Pulse 99 Oximetry 10/04/16 10/04/16 10/04/16 10:44 10:45 11:00 Temperature 98 F Pulse Rate 82 86 80 Pulse Rate [ From Monitor] Respiratory 18 Rate Blood Pressure 178/94 186/90 198/100 Blood Pressure [Right Arm] O2 Sat by Pulse Oximetry 10/04/16 10/04/16 10/04/16 11:15 11:30 11:45 Temperature Pulse Rate 82 80 80 Pulse Rate [ From Monitor] Respiratory Rate Blood Pressure 186/100 188/98 160/84 Blood Pressure [Right Arm] O2 Sat by Pulse Oximetry 10/04/16 10/04/16 10/04/16 12:00 12:15 12:30 Temperature Pulse Rate 260 H 80 82 Pulse Rate [ From Monitor] Respiratory Rate Blood Pressure 182/92 188/100 184/94 Blood Pressure [Right Arm] O2 Sat by Pulse Oximetry 10/04/16 10/04/16 10/04/16 12:45 13:00 13:15 Temperature 98.2 F Pulse Rate 80 82 82 Pulse Rate [ From Monitor] Respiratory 22 Rate Blood Pressure 186/100 202/108 202/108 Blood Pressure [Right Arm] O2 Sat by Pulse Oximetry 10/04/16 10/04/16 10/04/16 13:30 14:05 16:00 Temperature 98.4 F Pulse Rate 82 80 Pulse Rate [ 83 From Monitor] Respiratory 19 Rate Blood Pressure 200/100 200/108 Blood Pressure 153/76 [Right Arm] O2 Sat by Pulse Oximetry - Labs 10/04/16 04:50 10/03/16 09:16
[2016-10-04] MEDS ORDERED: MILK OF MAGNESIA PO ONE (20:00)
[2016-10-04] MEDS: OSCAL PO SCH (22:45)
[2016-10-05] MEDS: APRESOLINE IV PRN ×2 (06:40→12:29)
--- NOTE | 2016-10-05 08:50 | Progress Note ---
Assessment and Plan - Patient Problems (1) ESRD on hemodialysis Current Visit: Yes Status: Chronic (2) HTN (hypertension) Current Visit: Yes Status: Chronic Qualifiers: Hypertension type: H (3) Acute blood loss anemia Current Visit: Yes Status: Acute (4) Respiratory failure Current Visit: Yes Status: Resolved Qualifiers: Chronicity: acute on chronic Respiratory failure complication: unspecified whether with hypoxia or hypercapnia Qualified Code(s): J96.20 - Acute and chronic respiratory failure, unspecified whether with hypoxia or hypercapnia (5) Cocaine abuse Current Visit: Yes Status: Chronic Subjective Date of service: 10/05/16 Principal diagnosis: neck hematoma, s/p parathyroidectomy Objective - Vital Signs Vital signs: Vital Signs - 12hr 10/04/16 10/04/16 10/04/16 21:15 22:35 23:25 Temperature Pulse Rate 80 Pulse Rate [ 82 Apical] Pulse Rate [ 82 From Monitor] Respiratory 18 21 Rate Blood Pressure Blood Pressure [Right Arm] O2 Sat by Pulse 99 99 99 Oximetry 10/04/16 10/05/16 10/05/16 23:50 01:34 06:40 Temperature 98.9 F Pulse Rate 79 92 H Pulse Rate [ Apical] Pulse Rate [ 84 From Monitor] Respiratory 20 Rate Blood Pressure 158/74 195/97 Blood Pressure 142/69 [Right Arm] O2 Sat by Pulse 99 Oximetry 10/05/16 07:08 Temperature Pulse Rate Pulse Rate [ Apical] Pulse Rate [ From Monitor] Respiratory Rate Blood Pressure Blood Pressure [Right Arm] O2 Sat by Pulse 96 Oximetry - Lab 10/04/16 04:50 10/03/16 09:16 Most recent lab results Calcium 8.2 mg/dL (8.4-10.2) L 10/03/16 09:16 Phosphorus 3.5 mg/dL (2.5-4.5) 10/03/16 09:16 Magnesium 1.9 mg/dL (1.7-2.3) 10/04/16 04:50
[2016-10-05] MEDS: PHOSLO PO SCH ×3 (09:14→21:22)
[2016-10-05] MEDS: ROCALTROL PO SCH (10:15)
[2016-10-05] MEDS: PEPCID PO SCH (10:15)
[2016-10-05] MEDS: ZESTRIL PO SCH ×2 (10:16→21:23)
[2016-10-05] MEDS: LOPRESSOR PO SCH ×2 (10:17→21:24)
[2016-10-05] MEDS: NORVASC PO SCH (10:18)
[2016-10-05] MEDS: LASIX PO SCH (10:18)
[2016-10-05] MEDS: CATAPRES PO SCH ×3 (10:19→21:28)
[2016-10-05] MEDS: APRESOLINE PO SCH ×2 (10:19→21:23)
--- NOTE | 2016-10-05 11:01 | Progress Note ---
Assessment and Plan Assessment: Neck hematoma s/p evacuation / s/p parathyroidectomy Acute respiratory failure - extubated. Acute blood loss anemia ESRD, on HD - on MWF schedule. HTN Obesity Moderate pulmonary HTN - RVSP 61mmHg on echo 09/26/2016. Tobacco use / cocaine use Plan: Initiate Lopressor, 25mg PO BID. Currently stable cardiac status. Pt may discharge home from cardiology standpoint. Follow up in our [place] office with Dr. Garrett on 10/15/2016 @ 11:00AM. The patient has been seen in conjunction with Dr. Norman Kwok who agrees with the assessment and plan of care. Subjective Date of service: 10/05/16 Principal diagnosis: neck hematoma, s/p parathyroidectomy Interval history: Pt esting in bed, no complaints. BPs remain elevated but are improving. Ambulating around unit without difficulty. Objective Last Vital Signs Temp 98.9 F 10/05/16 01:34 Pulse 87 10/05/16 10:19 Resp 20 10/05/16 10:00 BP 172/83 10/05/16 10:19 Pulse Ox 96 10/05/16 07:08 - Physical Examination General: No Apparent Distress HEENT: Positive: PERRL, EOMI, Normocephaly, Mucus Membranes Moist Neck: Positive: Other (pressure dressing applied to anterior neck; anterior neck swelling noted) Cardiac: Positive: Reg Rate and Rhythm, S1/S2, Systolic Murmur Lungs: Positive: Normal Exam, clear to auscultation, Normal Breath Sounds Neuro: Positive: Grossly Intact, Cranial Nerve 2-12 Intact Abdomen: Positive: Unremarkable, Soft, Active Bowel Sounds Skin: Positive: Clear, Other (anterior neck swelling ). Negative: Rash Musculoskeletal: No Pain, Normal Range of Motion Extremities: Present: upper extr. pulses, lower extr. pulses. Absent: edema - Imaging and Cardiology EKG: report reviewed, image reviewed Echo: report reviewed (09/26/2016: mild concentric LHV, ER 50 - 55%, mildly dilated LA, impaired relaxation, posterior mitral annular calcification, mild TR , moderate pulmonary HTN, RVSP 61mmHg) - Telemetry EKG Rhythm: Sinus Rhythm - EKG Sinus rhythms and dysrhythmias: sinus rhythm
--- NOTE | 2016-10-05 19:55 | Progress Note ---
Subjective Narrative: surgically doing fine , talked to Pt in full as to the problem , and what was done . hopefully home in AM . Objective Vital Signs - 12hr 10/05/16 10/05/16 10/05/16 10:00 10:16 10:17 Pulse Rate 87 87 Pulse Rate [ 87 From Monitor] Respiratory 20 Rate Blood Pressure 172/83 172/83 10/05/16 10/05/16 10/05/16 10:18 10:19 12:29 Pulse Rate 87 87 84 Pulse Rate [ From Monitor] Respiratory Rate Blood Pressure 172/83 172/83 184/100 - Labs 10/04/16 04:50 10/03/16 09:16
[2016-10-05] MEDS: OSCAL PO SCH (21:24)
--- NOTE | 2016-10-06 09:14 | Progress Note ---
Assessment and Plan - Patient Problems (1) ESRD on hemodialysis Current Visit: Yes Status: Chronic (2) HTN (hypertension) Current Visit: Yes Status: Chronic Qualifiers: Hypertension type: H (3) Acute blood loss anemia Current Visit: Yes Status: Acute (4) Respiratory failure Current Visit: Yes Status: Resolved Qualifiers: Chronicity: acute on chronic Respiratory failure complication: unspecified whether with hypoxia or hypercapnia Qualified Code(s): J96.20 - Acute and chronic respiratory failure, unspecified whether with hypoxia or hypercapnia (5) Cocaine abuse Current Visit: Yes Status: Chronic Subjective Date of service: 10/06/16 Principal diagnosis: neck hematoma, s/p parathyroidectomy Objective - Vital Signs Vital signs: Vital Signs - 12hr 10/05/16 10/05/16 10/05/16 21:23 21:24 21:28 Temperature Pulse Rate 67 67 67 Pulse Rate [ Apical] Pulse Rate [ From Monitor] Pulse Rate [ Right Radial] Respiratory Rate Blood Pressure 195/99 195/99 195/99 Blood Pressure [Right Arm] O2 Sat by Pulse Oximetry 10/05/16 10/06/16 10/06/16 21:30 00:54 08:11 Temperature 97.9 F 97.4 F L 98.4 F Pulse Rate Pulse Rate [ 77 Apical] Pulse Rate [ 67 From Monitor] Pulse Rate [ 78 Right Radial] Respiratory 20 20 18 Rate Blood Pressure Blood Pressure 195/99 138/70 178/92 [Right Arm] O2 Sat by Pulse 100 97 Oximetry - Lab 10/04/16 04:50 10/03/16 09:16 Most recent lab results Calcium 8.2 mg/dL (8.4-10.2) L 10/03/16 09:16 Phosphorus 3.5 mg/dL (2.5-4.5) 10/03/16 09:16 Magnesium 1.9 mg/dL (1.7-2.3) 10/04/16 04:50
[2016-10-06] MEDS ORDERED: NACL 0.9 (PRIMING MACHINE ONLY DIALYSIS) MC ONE (11:24)
[2016-10-06] MEDS: APRESOLINE IV PRN (11:28)
--- NOTE | 2016-10-06 12:19 | Progress Note ---
Assessment and Plan 51 y/o male admitted with neck hematoma after parathyroid surgery at outside hospital, requiring mechanical ventilation for airway protection and adequate sedation. 1. Wean FiO2 as tolerated. Long discussion at bedside with patient. He became very upset and would not answer my questions. Requested that I come back after his dialysis. He does not carry a diagnosis of ESTEFANI, but based off the little information he would give, he has some low O2 sats at night and maybe some one has told him that he stops breathing while sleeping. Will discontinue PPV at night. Up to patient if he would allow us to screen him for O2. Otherwise, no objection to discharge if surgery feels he is stable. 2. HD per renal, MWF 3. Net negative state 4. Neck per surgery. Subjective Date of service: 10/06/16 Principal diagnosis: neck hematoma, s/p parathyroidectomy Interval history: No acute events. Currently on HD. Per notes, patient refusing CPAP at night and oxygen saturation checks. Currently oxygen is on top of head. Watching TV and appears in no distress. Objective Vital Signs - 12hr 10/06/16 10/06/16 10/06/16 00:54 08:11 09:45 Temperature 97.4 F L 98.4 F Pulse Rate 74 Pulse Rate [ 77 Apical] Pulse Rate [ 78 Right Radial] Respiratory 20 18 Rate Blood Pressure 186/104 Blood Pressure 138/70 178/92 [Right Arm] O2 Sat by Pulse 97 Oximetry 10/06/16 10/06/16 10/06/16 09:47 10:00 10:15 Temperature 98 F Pulse Rate 76 72 74 Pulse Rate [ Apical] Pulse Rate [ Right Radial] Respiratory 18 Rate Blood Pressure 198/112 196/104 188/106 Blood Pressure [Right Arm] O2 Sat by Pulse Oximetry 10/06/16 10/06/16 10/06/16 10:45 11:00 11:28 Temperature Pulse Rate 80 76 84 Pulse Rate [ Apical] Pulse Rate [ Right Radial] Respiratory Rate Blood Pressure 206/98 188/100 192/100 Blood Pressure [Right Arm] O2 Sat by Pulse Oximetry 10/06/16 10/06/16 11:30 11:49 Temperature Pulse Rate 84 80 Pulse Rate [ Apical] Pulse Rate [ Right Radial] Respiratory Rate Blood Pressure 192/100 190/86 Blood Pressure [Right Arm] O2 Sat by Pulse Oximetry Constitutional: no acute distress, alert Eyes: non-icteric ENT: oropharynx moist Neck: other (pressure dressing in place, neck swelling throughout which has improved) Ascultation: Bilateral: diminished breath sounds, wheezes (faint expiratory bilaterally), other (coarse equal BS bilaterally) Percussion: Bilateral: not dull Cardiovascular: regular rate and rhythm (no mrg) Gastrointestinal: normoactive bowel sounds, soft, non-tender, non-distended Integumentary: normal Extremities: no cyanosis, no edema, pink and warm Neurologic: non-focal exam, pupils equal and round, CN II-XII normal, other ( somnolent/arousable) Psychiatric: mood appropriate, affect normal CBC and BMP: 10/04/16 04:50 10/03/16 09:16 ABG, PT/INR, D-dimer: ABG POC ABG pH 7.373 (7.35-7.45) 09/30/16 04:50 POC ABG pCO2 52.5 (35-45) H 09/30/16 04:50 POC ABG pO2 97 (80-105) 09/30/16 04:50 POC ABG HCO3 30.6 09/30/16 04:50 POC ABG Total CO2 32 09/30/16 04:50 POC ABG O2 Sat 97 09/30/16 04:50 PT/INR, D-dimer PT 14.0 Sec. (12.2-14.9) 09/26/16 03:30 INR 1.09 (0.87-1.13) 09/26/16 03:30 Abnormal lab findings: Abnormal Labs 09/26/16 09/26/16 09/26/16 03:30 04:17 05:16 WBC RBC 3.05 L Hgb 9.2 L Hct 28.9 L MCV 95 H RDW 15.7 H Lymph % (Auto) 2.5 L [place] % (Auto) Eos % (Auto) Lymph # 0.2 L Eos # 0.5 H Seg Neutrophils % 86.9 H Seg Neuts % (Manual) Lymphocytes % (Manual) 6.0 L Monocytes % (Manual) 8.0 H Eosinophils % (Manual) 19.0 H Basophils % (Manual) 2.0 H Lymphocytes # (Manual) 0.4 L Eosinophils # (Manual) 1.3 H POC ABG pH POC ABG pCO2 POC ABG pO2 78 L Sodium 134 L Potassium Chloride 91.2 L Carbon Dioxide BUN 38 H Creatinine 8.8 H Glucose POC Glucose Calcium Ionized Calcium ALT Albumin 09/26/16 09/26/16 09/26/16 08:37 10:51 21:26 WBC 4.3 L RBC 2.72 L Hgb 8.3 L 7.9 L Hct 25.7 L 24.5 L MCV 95 H RDW 15.3 H Lymph % (Auto) [place] % (Auto) Eos % (Auto) Lymph # Eos # Seg Neutrophils % Seg Neuts % (Manual) Lymphocytes % (Manual) Monocytes % (Manual) Eosinophils % (Manual) Basophils % (Manual) Lymphocytes # (Manual) Eosinophils # (Manual) POC ABG pH POC ABG pCO2 POC ABG pO2 Sodium Potassium Chloride Carbon Dioxide BUN Creatinine Glucose POC Glucose 132 H Calcium Ionized Calcium ALT Albumin 09/27/16 09/27/16 09/27/16 04:06 06:00 06:00 WBC RBC 2.55 L Hgb 7.7 L Hct 24.1 L MCV RDW Lymph % (Auto) 9.0 L [place] % (Auto) 13.5 H Eos % (Auto) 5.0 H Lymph # 0.4 L Eos # Seg Neutrophils % 71.7 H Seg Neuts % (Manual) Lymphocytes % (Manual) Monocytes % (Manual) Eosinophils % (Manual) Basophils % (Manual) Lymphocytes # (Manual) Eosinophils # (Manual) POC ABG pH 7.272 L POC ABG pCO2 53.8 H POC ABG pO2 112 H Sodium 132 L Potassium 6.6 H* D Chloride 91.8 L Carbon Dioxide BUN 52 H Creatinine 10.8 H Glucose POC Glucose Calcium 6.7 L D Ionized Calcium ALT < 5 L Albumin 3.4 L 09/28/16 09/28/16 09/29/16 09:39 09:39 04:03 WBC 4.1 L RBC 2.45 L 3.63 L Hgb 7.4 L 10.7 L D Hct 22.9 L 33.2 L D MCV RDW Lymph % (Auto) 5.3 L [place] % (Auto) 11.3 H Eos % (Auto) 15.1 H Lymph # 0.3 L Eos # 0.8 H Seg Neutrophils % Seg Neuts % (Manual) 93.0 H Lymphocytes % (Manual) 5.0 L Monocytes % (Manual) Eosinophils % (Manual) Basophils % (Manual) Lymphocytes # (Manual) 0.2 L Eosinophils # (Manual) POC ABG pH POC ABG pCO2 POC ABG pO2 Sodium 136 L Potassium Chloride 95.0 L Carbon Dioxide BUN 29 H Creatinine 7.8 H Glucose POC Glucose Calcium 6.6 L Ionized Calcium ALT Albumin 09/29/16 09/29/16 09/29/16 04:03 14:58 18:00 WBC RBC Hgb Hct MCV RDW Lymph % (Auto) [place] % (Auto) Eos % (Auto) Lymph # Eos # Seg Neutrophils % Seg Neuts % (Manual) Lymphocytes % (Manual) Monocytes % (Manual) Eosinophils % (Manual) Basophils % (Manual) Lymphocytes # (Manual) Eosinophils # (Manual) POC ABG pH POC ABG pCO2 POC ABG pO2 Sodium Potassium 6.2 H* D Chloride 96.3 L 95.5 L 94.8 L Carbon Dioxide 21 L BUN 38 H Creatinine 9.2 H 4.9 H 5.5 H Glucose 116 H 106 H POC Glucose Calcium 6.5 L 7.6 L D 7.8 L Ionized Calcium ALT Albumin 09/30/16 09/30/16 09/30/16 00:24 04:50 06:46 WBC RBC Hgb Hct MCV RDW Lymph % (Auto) [place] % (Auto) Eos % (Auto) Lymph # Eos # Seg Neutrophils % Seg Neuts % (Manual) Lymphocytes % (Manual) Monocytes % (Manual) Eosinophils % (Manual) Basophils % (Manual) Lymphocytes # (Manual) Eosinophils # (Manual) POC ABG pH POC ABG pCO2 52.5 H POC ABG pO2 Sodium Potassium 5.2 H D Chloride 94.9 L Carbon Dioxide 21 L BUN 23 H Creatinine 6.1 H Glucose 111 H POC Glucose Calcium 7.5 L Ionized Calcium 3.9 L ALT Albumin 09/30/16 10/01/16 10/01/16 06:46 03:58 03:58 WBC RBC 2.56 L Hgb 7.8 L Hct 24.1 L D MCV RDW Lymph % (Auto) 6.4 L [place] % (Auto) 11.2 H Eos % (Auto) 7.6 H Lymph # 0.5 L Eos # 0.5 H Seg Neutrophils % 74.0 H Seg Neuts % (Manual) Lymphocytes % (Manual) Monocytes % (Manual) Eosinophils % (Manual) Basophils % (Manual) Lymphocytes # (Manual) Eosinophils # (Manual) POC ABG pH POC ABG pCO2 POC ABG pO2 Sodium Potassium Chloride 95.1 L Carbon Dioxide BUN 27 H Creatinine 7.1 H Glucose 102 H POC Glucose Calcium 7.8 L Ionized Calcium 4.2 L ALT Albumin 10/01/16 10/02/16 10/02/16 03:58 03:58 03:58 WBC RBC 2.50 L Hgb 7.6 L Hct 23.5 L MCV RDW Lymph % (Auto) 5.1 L [place] % (Auto) 11.9 H Eos % (Auto) 10.5 H Lymph # 0.3 L Eos # 0.7 H Seg Neutrophils % 71.8 H Seg Neuts % (Manual) Lymphocytes % (Manual) Monocytes % (Manual) Eosinophils % (Manual) Basophils % (Manual) Lymphocytes # (Manual) Eosinophils # (Manual) POC ABG pH POC ABG pCO2 POC ABG pO2 Sodium Potassium Chloride 97.1 L 96.3 L Carbon Dioxide BUN 36 H 21 H Creatinine 8.6 H 5.9 H Glucose POC Glucose Calcium 7.7 L Ionized Calcium ALT Albumin 10/03/16 10/03/16 10/04/16 09:16 09:16 04:50 WBC RBC Hgb 7.5 L Hct 23.9 L MCV RDW Lymph % (Auto) [place] % (Auto) Eos % (Auto) Lymph # Eos # Seg Neutrophils % Seg Neuts % (Manual) Lymphocytes % (Manual) Monocytes % (Manual) Eosinophils % (Manual) Basophils % (Manual) Lymphocytes # (Manual) Eosinophils # (Manual) POC ABG pH POC ABG pCO2 POC ABG pO2 Sodium 135 L Potassium Chloride 94.0 L Carbon Dioxide BUN 33 H Creatinine 9.2 H D Glucose 116 H POC Glucose Calcium 8.2 L Ionized Calcium 4.3 L ALT Albumin
[2016-10-06] MEDS: PHOSLO PO SCH ×2 (13:49→13:50)
[2016-10-06] MEDS: ZESTRIL PO SCH (13:51)
[2016-10-06] MEDS: LOPRESSOR PO SCH (13:54)
[2016-10-06] MEDS: APRESOLINE PO SCH (13:55)
[2016-10-06 13:56] VITALS: BP 225/102
== END 2016-10-06 14:15 | disposition left against medical advice (07) | DRG 919 ==
LOC: ED 21:30 → CC1 09-26 02:06 → 2B-SURG 10-03 16:52
PROVIDERS: ADMIT Surgery; ATTEND Surgery
PROC: 0JC40ZZ Extirpation of Matter from Right Neck Subcutaneous Tissue and Fascia, Open Approach (ICD-10-PCS; principal; 2016-09-26)
PROC: 5A1955Z Respiratory Ventilation, Greater than 96 Consecutive Hours (ICD-10-PCS; 2016-09-26)
PROC: 0BH17EZ Insertion of Endotracheal Airway into Trachea, Via Natural or Artificial Opening (ICD-10-PCS; 2016-09-26)
PROC: 5A1D60Z (ICD-10-PCS; 2016-09-26)
PROC: 4A033R1 Measurement of Arterial Saturation, Peripheral, Percutaneous Approach (ICD-10-PCS; 2016-09-26)
DX: L76.32 Postprocedural hematoma of skin and subcutaneous tissue following other procedure (principal); J96.21 Acute and chronic respiratory failure with hypoxia; N18.6 End stage renal disease; D62 Acute posthemorrhagic anemia; I50.32 Chronic diastolic (congestive) heart failure; I13.2 Hypertensive heart and chronic kidney disease with heart failure and with stage 5 chronic kidney disease, or end stage renal disease; D63.1 Anemia in chronic kidney disease; I95.9 Hypotension, unspecified; F17.210 Nicotine dependence, cigarettes, uncomplicated; F14.10 Cocaine abuse, uncomplicated; I27.2 Other secondary pulmonary hypertension; E83.51 Hypocalcemia; I44.0 Atrioventricular block, first degree; E66.8 Other obesity; Y83.8 Other surgical procedures as the cause of abnormal reaction of the patient, or of later complication, without mention of misadventure at the time of the procedure; R13.10 Dysphagia, unspecified; Z99.2 Dependence on renal dialysis; Z68.33 Body mass index [BMI] 33.0-33.9, adult; Z91.013 Allergy to seafood
CPT/HCPCS: 36415; 36600; 70490; 71010; 80048; 80053; 82140; 82330; 82803; 82962; 83735; 84100; 84439; 84443; 85007; 85014; 85018; 85025; 85027; 85610; 88304; 90686; 90732; 93005; 93010; 93306; 94002; 94003; 94660; 94760; 96374; J0330; J0360; J0610; J0636; J0690; J1100; J1630; J2250; J2704; J3010; J7030; J7042